=== PATIENT | male | born 1990 | race Caucasian/White ===

== ENCOUNTER 2021-10-20 17:48 | Inpatient (IN) ==
[2021-10-20 18:28] LABS: Appearance Urine Clear (Clear); Bilirubin Urine Negative (Negative); Blood Urine Negative (Negative); Color Urine Yellow; Glucose Urine UA Negative (Negative); Ketones Urine 2+ (Negative); Leukocyte Esterase Urine Negative (Negative); Nitrite Urine Negative (Negative); Protein Urine Negative (Negative); Specific Gravity Urine 1.011 (1.000-1.030); Urobilinogen Urine Negative (Negative); pH Urine 5.5 (4.5-7.5)
[2021-10-20 18:49] LABS: Albumin Globulin Ratio 1.7 (0.9-2); Albumin Level 4.8 gm/dl (3.4-5.0); BUN Creatinine Ratio 9.5 (10-20); Bilirubin,Total 0.7 mg/dl (0.2-1.0); Calcium 10.1 mg/dl (8.5-10.1); Creatinine Clr Calc Pharmacy 156.3 ml/min; Est GFR (African American) 123.1 ml/min; Est GFR (Non-African American) 106.2 ml/min; Globulin 2.8 gm/dl (2.5-4.0); Potassium 3.9 mmol/L (3.5-5.1); Total Protein 7.6 gm/dl (6.0-8.3)
[2021-10-20 18:53] LABS: Acetaminophen < 3 ug/ml (10-30); Salicylate < 3.0 mg/dl (3.0-30)
[2021-10-20] MEDS ORDERED: LORazepam 1 MG TAB PO STA (18:53)
[2021-10-20 18:56] LABS: Amphetamines+Metham, Urine Neg (Neg); Barbiturates, Urine Neg (Neg); Benzodiazepine, Urine Neg (Neg); Cocaine, Urine Neg (Neg); MDMA (Ecstacy), Urine Neg (Neg); Methadone, Urine Neg (Neg); Opiate, Urine Neg (Neg); Phencyclidine, Urine Neg (Neg)
--- NOTE | 2021-10-20 18:59 | Emergency Department Note ---
Impression & Plan Depression with suicidal ideation, Borderline personality disorder ED Provider Note Provider: Arturo Sanchez MD DATE OF SERVICE: 10/20/2021 CHIEF COMPLAINT: Suicidal thoughts, depression HISTORY OF PRESENT ILLNESS: Patient is a 31-year-old gentleman with reported history of borderline personality disorder stating that over the past approximately 5 months he lost his job in his housing and is under significant stress and some worsening mood and depression. States over the last several da ys has had some suicidal thoughts. Reports a history approximate 10 years ago of suicide attempt and prior inpatient psychiatric care. Patient denies Prasad ideation or fights with others and states he is just withdrawing. States he has narcolepsy but is not really sleeping and he has not been eating very much. Patient states that he feels he needs help he believes inpatient treatment is needed. He states that his inner dialogue with positive voice telling him not to harm himself is diminishing. Patient currently does not of psychiatrist but does receive care from his primary doctor's office including multiple medications. Patient with an outpatient therapist that he states has not been going given his depression recently that regularly. Patient states at times he feels a little bit of chest tightness and he feels anxious. REVIEW OF SYSTEMS: A total of 10 review of systems was obtained and negative except as stated above in the HPI. PAST MEDICAL HISTORY: As noted above MEDICATIONS: Reviewed home medications SOCIAL HISTORY: Occasional marijuana, denies other drugs. PHYSICAL EXAM: GENERAL: alert and oriented in no acute distress on stretcher with his friend Head: normocephalic and atraumatic EYES: No injection, discharge or icterus. NECK: Trachea midline. ENT: Mucous membranes pink and moist. LUNGS: Airway patent. No retractions. Breath sounds clear with good air entry bilaterally. HEART: Regular rate and rhythm. No chest wall tenderness SKIN: Acyanotic, warm, dry, without rashes EXTREMITIES: Without swelling, tenderness or deformity NEUROLOGICAL: No focal deficits. No aphasia. No facial droop or slurred speech. Ambulatory. Psych:. Endorses SI without clear plan. Expresses hopelessness. Denies HI or hallucinations. Mildly flattened affect, does avoid some eye contact. EK bpm normal sinus rhythm with sinus arrhythmia. No acute ST segment honey vation or depression. QTc 430. Normal axis. Patient's laboratory studies reviewed. Differential includes Mood disorder, infection, hypoglycemia, electrolyte abnormalities, cardiac sources, intracerebral event, toxicologic, trauma, neurologic, as well as other pathologies. IMPRESSION/MEDICAL DECISION MAKING: Seen with manager rn case. Some chest tightness reported the times. EKG and troponin were sent although lower likelihood primary cardiac event given his age. Likely more related to his mood and anxiety. Denies attempting suicide recently but distant history. Now having some suicidal thoughts. Wishing for voluntary inpatient treatment. Basic labs obtained without severe abnormalities noted. Requesting to medication up with his anxiety and given a dose of oral Ativan. Referrals were made for inpatient psychiatric care. Accepted to [facility] for furthering patient care of his depression and suicidal ideation. DIAGNOSIS: Depression with suicidal ideation, borderline personality disorder DISPOSITION: Past Med/Surg History Social History Smoking Status: Current every day smoker Home Meds Home Medications Medication Instructions Recorded Confirmed armodafinil 250 mg tablet (Nuvigil) 250 mg PO DAILY 10/20/21 10/20/21 chlordiazepoxide HCl 25 mg capsule 25 mg PO DIRECTED PRN 10/20/21 10/20/21 clonidine HCl 0.1 mg tablet 0.1 mg PO BID 10/20/21 10/20/21 lamotrigine 100 mg tablet 100 mg PO BID 10/20/21 10/20/21 (Lamictal) venlafaxine 150 mg 150 mg PO DAILY 10/20/21 10/20/21 capsule,extended release 24 hr (Effexor XR) venlafaxine 75 mg capsule,extended 75 mg PO DAILY 10/20/21 10/20/21 release 24 hr (Effexor XR) zolpidem 10 mg tablet (Ambien) 10 mg PO DAILY 10/20/21 10/20/21 Results & Data (ED) Vital Signs Vital Signs - 24 hr 10/20/21 17:51 10/20/21 21:01 Temperature 36.2 C L Temperature Source Temporal Artery Scan Pulse Rate 106 H Pulse Rate [Left Finger] 90 Respiratory Rate 18 16 Blood Pressure 158/100 H Blood Pressure [Right Arm] 143/98 H Blood Pressure Mean 119 Blood Pressure Mean [Right Arm] 113 Blood Pressure Position Sitting Blood Pressure Position [Right Arm] Lying Pulse Oximetry 96 96 Oxygen Delivery Method Room Air Room Air Sepsis Recent Fever Within 48 Hours No Sepsis New/Unexplained Change in Mental Status No Sepsis Action Taken by Nursing No Action Required Laboratory Data Result diagrams: 10/20/21 19:57 10/20/21 18:21 Lab Results 10/20/21 10/20/21 10/20/21 Range/Units 18:06 18:06 18:21 WBC (4.8-10.8) K/uL RBC (4.7-6.1) M/uL Hgb (14.0-18.0) g/dL Hct (42-52) % MCV (80-100) fL MCH (25-34) pg MCHC (32-36) g/dL RDW Std Deviation (36.4-46.3) fL RDW Coeff of Giana (11.5-14.5) % Plt Count (130-400) K/uL MPV (7.4-10.4) fL Immature Gran % (Auto) % Neut % (Auto) % Lymph % (Auto) % Wetzel % (Auto) % Eos % (Auto) % Baso % (Auto) % Neut # (Auto) (1.4-6.5) K/uL Lymph # (Auto) (1.2-3.4) K/uL Wetzel # (Auto) (0.11-0.59) K/uL Eos # (Auto) (0-0.5) K/uL Baso # (Auto) (0-0.2) K/uL Immature Gran # (Auto) (0.00-0.02) K/uL Sodium 137 (136-145) mmol/L Potassium 3.9 (3.5-5.1) mmol/L Chloride 104 (98-107) mmol/L Carbon Dioxide 24 (21-32) mmol/L Anion Gap 9 (3-11) BUN 9 (6-23) mg/dl Creatinine 0.95 (0.6-1.4) mg/dl Est Cr Clr Drug Dosing 156.3 ml/min Est GFR ( Amer) 123.1 ml/min Est GFR (Non-Af Amer) 106.2 ml/min BUN/Creatinine Ratio 9.5 L (10-20) Glucose 90 (70-99(Fasting)) mg/dl Calcium 10.1 (8.5-10.1) mg/dl Total Bilirubin 0.7 (0.2-1.0) mg/dl AST 22 (13-39) U/L ALT 22 (7-52) U/L Alkaline Phosphatase 90 (34-104) U/L Troponin I (0-0.04) ng/ml Total Protein 7.6 (6.0-8.3) gm/dl Albumin 4.8 (3.4-5.0) gm/dl Globulin 2.8 (2.5-4.0) gm/dl Albumin/Globulin Ratio 1.7 (0.9-2) TSH (0.300-4.500) uIu/ml Urine Color Yellow Urine Appearance Clear (Clear) Urine pH 5.5 (4.5-7.5) Ur Specific Jefferson 1.011 (1.000-1.030) Urine Protein Negative (Negative) Urine Glucose (UA) Negative (Negative) Urine Ketones 2+ H (Negative) Urine Blood Negative (Negative) Urine Nitrite Negative (Negative) Urine Bilirubin Negative (Negative) Urine Urobilinogen Negative (Negative) Ur Leukocyte Esterase Negative (Negative) Salicylates (3.0-30) mg/dl Urine Opiates Screen Neg (Neg) Ur Methadone, Qual Neg (Neg) Acetaminophen (10-30) ug/ml Urine Barbiturates Neg (Neg) Ur Phencyclidine (PCP) Neg (Neg) U Amphetamin/Meth Scrn Neg (Neg) MDMA (Ecstasy) Screen Neg (Neg) U Benzodiazepines Scrn Neg (Neg) Ur Cocaine Metabolite Neg (Neg) U Marijuana (THC) Screen Pos H (Neg) Ethyl Alcohol mg/dL (<10.0) mg/dl SARS-CoV-2, RNA, NAAT (NEGATIVE) 10/20/21 10/20/21 10/20/21 Range/Units 18:21 18:21 18:21 WBC (4.8-10.8) K/uL RBC (4.7-6.1) M/uL Hgb (14.0-18.0) g/dL Hct (42-52) % MCV (80-100) fL MCH (25-34) pg MCHC (32-36) g/dL RDW Std Deviation (36.4-46.3) fL RDW Coeff of Giana (11.5-14.5) % Plt Count (130-400) K/uL MPV (7.4-10.4) fL Immature Gran % (Auto) % Neut % (Auto) % Lymph % (Auto) % Wetzel % (Auto) % Eos % (Auto) % Baso % (Auto) % Neut # (Auto) (1.4-6.5) K/uL Lymph # (Auto) (1.2-3.4) K/uL Wetzel # (Auto) (0.11-0.59) K/uL Eos # (Auto) (0-0.5) K/uL Baso # (Auto) (0-0.2) K/uL Immature Gran # (Auto) (0.00-0.02) K/uL Sodium (136-145) mmol/L Potassium (3.5-5.1) mmol/L Chloride (98-107) mmol/L Carbon Dioxide (21-32) mmol/L Anion Gap (3-11) BUN (6-23) mg/dl Creatinine (0.6-1.4) mg/dl Est Cr Clr Drug Dosing ml/min Est GFR ( Amer) ml/min Est GFR (Non-Af Amer) ml/min BUN/Creatinine Ratio (10-20) Glucose (70-99(Fasting)) mg/dl Calcium (8.5-10.1) mg/dl Total Bilirubin (0.2-1.0) mg/dl AST (13-39) U/L ALT (7-52) U/L Alkaline Phosphatase (34-104) U/L Troponin I (0-0.04) ng/ml Total Protein (6.0-8.3) gm/dl Albumin (3.4-5.0) gm/dl Globulin (2.5-4.0) gm/dl Albumin/Globulin Ratio (0.9-2) TSH 1.550 (0.300-4.500) uIu/ml Urine Color Urine Appearance (Clear) Urine pH (4.5-7.5) Ur Specific Jefferson (1.000-1.030) Urine Protein (Negative) Urine Glucose (UA) (Negative) Urine Ketones (Negative) Urine Blood (Negative) Urine Nitrite (Negative) Urine Bilirubin (Negative) Urine Urobilinogen (Negative) Ur Leukocyte Esterase (Negative) Salicylates < 3.0 L (3.0-30) mg/dl Urine Opiates Screen (Neg) Ur Methadone, Qual (Neg) Acetaminophen < 3 L (10-30) ug/ml Urine Barbiturates (Neg) Ur Phencyclidine (PCP) (Neg) U Amphetamin/Meth Scrn (Neg) MDMA (Ecstasy) Screen (Neg) U Benzodiazepines Scrn (Neg) Ur Cocaine Metabolite (Neg) U Marijuana (THC) Screen (Neg) Ethyl Alcohol mg/dL < 10.0 (<10.0) mg/dl SARS-CoV-2, RNA, NAAT (NEGATIVE) 10/20/21 10/20/21 10/20/21 Range/Units 18:21 19:13 19:57 WBC 5.99 (4.8-10.8) K/uL RBC 5.30 (4.7-6.1) M/uL Hgb 16.7 (14.0-18.0) g/dL Hct 46.9 (42-52) % MCV 88.5 (80-100) fL MCH 31.5 (25-34) pg MCHC 35.6 (32-36) g/dL RDW Std Deviation 42.5 (36.4-46.3) fL RDW Coeff of Giana 13.1 (11.5-14.5) % Plt Count 264 (130-400) K/uL MPV 10.7 H (7.4-10.4) fL Immature Gran % (Auto) 0.0 % Neut % (Auto) 74.3 % Lymph % (Auto) 21.7 % Wetzel % (Auto) 3.5 % Eos % (Auto) 0.2 % Baso % (Auto) 0.3 % Neut # (Auto) 4.45 (1.4-6.5) K/uL Lymph # (Auto) 1.30 (1.2-3.4) K/uL Wetzel # (Auto) 0.21 (0.11-0.59) K/uL Eos # (Auto) 0.01 (0-0.5) K/uL Baso # (Auto) 0.02 (0-0.2) K/uL Immature Gran # (Auto) 0.00 (0.00-0.02) K/uL Sodium (136-145) mmol/L Potassium (3.5-5.1) mmol/L Chloride (98-107) mmol/L Carbon Dioxide (21-32) mmol/L Anion Gap (3-11) BUN (6-23) mg/dl Creatinine (0.6-1.4) mg/dl Est Cr Clr Drug Dosing ml/min Est GFR ( Amer) ml/min Est GFR (Non-Af Amer) ml/min BUN/Creatinine Ratio (10-20) Glucose (70-99(Fasting)) mg/dl Calcium (8.5-10.1) mg/dl Total Bilirubin (0.2-1.0) mg/dl AST (13-39) U/L ALT (7-52) U/L Alkaline Phosphatase (34-104) U/L Troponin I < 0.03 (0-0.04) ng/ml Total Protein (6.0-8.3) gm/dl Albumin (3.4-5.0) gm/dl Globulin (2.5-4.0) gm/dl Albumin/Globulin Ratio (0.9-2) TSH (0.300-4.500) uIu/ml Urine Color Urine Appearance (Clear) Urine pH (4.5-7.5) Ur Specific Jefferson (1.000-1.030) Urine Protein (Negative) Urine Glucose (UA) (Negative) Urine Ketones (Negative) Urine Blood (Negative) Urine Nitrite (Negative) Urine Bilirubin (Negative) Urine Urobilinogen (Negative) Ur Leukocyte Esterase (Negative) Salicylates (3.0-30) mg/dl Urine Opiates Screen (Neg) Ur Methadone, Qual (Neg) Acetaminophen (10-30) ug/ml Urine Barbiturates (Neg) Ur Phencyclidine (PCP) (Neg) U Amphetamin/Meth Scrn (Neg) MDMA (Ecstasy) Screen (Neg) U Benzodiazepines Scrn (Neg) Ur Cocaine Metabolite (Neg) U Marijuana (THC) Screen (Neg) Ethyl Alcohol mg/dL (<10.0) mg/dl SARS-CoV-2, RNA, NAAT NEGATIVE (NEGATIVE) Administered Medications Lamotrigine (Lamotrigine 100 Mg Tab) 100 mg PO BID BROOKE Stop: 11/19/21 20:59 Last Admin: 10/20/21 20:41 Dose: 100 mg Documented by: [id number] Discontinued Medications Lorazepam (Lorazepam 1 Mg Tab) 1 mg PO NOW STA Stop: 10/20/21 18:54 Last Admin: 10/20/21 19:16 Dose: 1 mg Documented by: [id number] Discharge Plan Visit Data Chief Complaint: Mental Health Evaluation Stated Complaint: BODERLINE PERSONALITY DISORDER, SUCIDAL THOUGHTS ED Provider: Arturo Sanchez Discharge Problem: Depression with suicidal ideation, Borderline personality disorder Patient Disposition: Admitted As Inpatient Discharge Instructions Interventions: ED Discharge Assessment Last Done: 10/20/21 22:07
[2021-10-20 20:22] LABS: Basophils # (auto) 0.02 K/uL (0-0.2); Basophils % (auto) 0.3 %; Eosinophils # (auto) 0.01 K/uL (0-0.5); Eosinophils % (auto) 0.2 %; Hematocrit (blood only) 46.9 % (42-52); Hemoglobin 16.7 g/dL (14.0-18.0); Lymphocytes % (auto) 21.7 %; Mean Corpuscular Hemoglobin 31.5 pg (25-34); Mean Corpuscular Hgb Conc 35.6 g/dL (32-36); Mean Corpuscular Volume 88.5 fL (80-100); Mean Platelet Volume 10.7 fL (7.4-10.4); Monocytes # (auto) 0.21 K/uL (0.11-0.59); Monocytes % (auto) 3.5 %; Neutrophils # (auto) 4.45 K/uL (1.4-6.5); Neutrophils % (auto) 74.3 %; Platelet Count 264 K/uL (130-400); RDW Coefficient of Variation 13.1 % (11.5-14.5); RDW Standard Deviation 42.5 fL (36.4-46.3); White Blood Count 5.99 K/uL (4.8-10.8)
[2021-10-20] MEDS: lamoTRIgine 100 MG TAB PO SCH (20:41)
[2021-10-20] MEDS ORDERED: MAGNESIUM HYDROXIDE SUSP 30 ML UDC PO PRN (21:52)
[2021-10-20] MEDS ORDERED: ALUMINUM/MAGNESIUM SUSP 30 ML UDC PO PRN (21:52)
[2021-10-20] MEDS ORDERED: SODIUM CHLORIDE 0.65% NA SOLN 45 ML (OCEAN) PRN (21:52)
[2021-10-20] MEDS ORDERED: hydrOXYzine HCl 25 MG TAB PO PRN ×2 (21:52)
[2021-10-20] MEDS ORDERED: ACETAMINOPHEN 325 MG TAB PO PRN (21:52)
[2021-10-20] MEDS ORDERED: BISMUTH SUBSALICYLATE LIQD 236 ML PO PRN (21:52)
[2021-10-20] MEDS ORDERED: cloNIDine HCL 0.1 MG TAB PO SCH (22:45)
[2021-10-20] MEDS ORDERED: PATIENT'S ALLERGY INFO NEEDS ENTERED SCH (22:45)
[2021-10-20] MEDS ORDERED: PATIENT'S ALLERGY INFO NEEDS ENTERED ONE (22:55)
[2021-10-20] MEDS: ZOLPIDEM TARTRATE 10 MG TAB PO PRN (23:28)
[2021-10-20] MEDS ORDERED: FLUARIX QUADRIVALENT 0.5 ML SYR IM ONE (23:37)
[2021-10-21] MEDS ORDERED: NICOTINE 14 MG/24 HR PATCH TD SCH (09:00)
[2021-10-21] MEDS ORDERED: chlordiazePOXIDE HCl 25 MG CAP PO PRN (09:13)
[2021-10-21] MEDS ORDERED: VENLAFAXINE HCL XR 75 MG CAPXR PO SCH (09:15)
--- NOTE | 2021-10-21 10:05 | History & Physical ---
Date of Service October 21, 2021 Impression / Recommendations Impression The patient is a 31 year old with a history of narcolepsy with cataplexy, BPD, trauma, depression and anxiety who was admitted for worsening symptoms and SI with plan and rehearsal behaviors of hanging himself. Diagnostically consistent with JAIRO, MDD with anxious distress, and possible BPAD II given history of episodes convincing for hypomania. The patient is deemed unstable and requires psychiatric hospitalization for diagnostic clarification, safety and stabilization, medication management and development of further coping skills. Discussed treatment options including medication. He would like to cross-taper from venlafaxine to sertraline. Reviewed side effects including but not limited to risk of SI, GI, LEWIS, sexual side effects, risk of florence. Will remain on lamictal for mood stabilization. Will continue prior to admission clonidine, ambien and armodafinil. (1) Major depressive disorder, recurrent episode, severe with anxious distress: (2) JAIRO (generalized anxiety disorder): (3) Narcolepsy and cataplexy: (4) Bipolar 2 disorder: (5) Borderline personality disorder: 10/21/21: The patient was admitted to the [facility]) on q15 min checks (behavioral with suicide precautions) for safety. The patient will participate in group, recreational, and milieu therapies and will be offered additional individual and family sessions as clinically appropriate. -Cross taper from venlafaxine to sertraline -Continue Lamictal, ambien, clonidine, armodafinil -MDQ and Marquez screen Inventory Assets Strengths: motivated to get job again once feeling better, lots of friends, periods of extended stability in the past, outpatient therapist Needs: additional coping skills, housing, medication adjustment Risk Factors Assessment Acute risk high given SI with rehearsal and intent, major depression, family history of by suicide, homelessness, single. Chronic risk is moderate given multiple non-modifiable risk factors. Most significant modifiable risk is helping provide additional social supports, i.e. housing/temporary senior care information, and treating major depressive episode and anxiety. Male: Yes : Yes Do You Have Access To A Gun?: No Health Problems: Yes Mental Health Diagnoses: Yes Substance Use Disorders: No Previous Attempt: No Family History of Suicide: Yes Previous Psychiatric Hospitalization: Yes Hopelessness: Yes Smoker: Yes Protective Factors Assessment Responsible for Young Children: Yes (has 6 yo daughter) Employed: No (lost job in May/Jun) Stable Relationships: Yes Supportive Family: No Good Rapport with Provider: Yes Psychiatric History Identifying Data ANA CASTANO is a 31-year-old man who is currently homeless, has a history of narcolepsy with cataplexy borderline personality disorder, and was admitted on 10/20/21 21:52 on a 201 voluntary commitment for worsening depression and SI with rehearsal behaviors and plan to hang himself. Chief Complaint "i feel really stuck". History of Present Illness Ana presents with months of worsening depression and intensifying SI in the context of multiple psychosocial stressors including losing his job in June, lose of housing/now staying between friends homes, and loss of primary custody of his daughter in May. Since Saturday he had persistent active SI with intent with thoughts of hanging himself. He states on night he had "a breakdown" with SI and considering hanging himself, had tied a noose and due to heightened emotional state fell asleep, which often occurs due to his cataplexy, and then the next morning sought help from his friend. 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 He feels like he "stays stuck" because his anxiety will worsen and then he develops depression and he either "sinks into it" or "I start doing stupid impulsive stuff". He reports symptoms of depression including hopelessness, helplessness, poor sleep, low self-worth, low self-esteem, low motivation, low energy, indecisiveness, low appetite and severe anxiety including ruminative thoughts, chest tightness and panic attacks every 2-3 days. He continues to have passive SI with thoughts of "I"m ok with dying" but feels much safer now being in the hospital. Has been on Effexor since about 2012 and it was last increased "years ago". Ambien works well for him "most of the time but not when my anxiety is off the charts". Lamictal since 2018 because before narcolepsy diagnosis there had been concern for seizures and then he found it helped with his mood stabilization. He's also prescribed librium for anxiety and he uses it now and then about once every few weeks for severe panic attacks. Psychiatric ROS notable for: no psychosis; hx possible florence with periods of decreased sleep/appetite/hypersexuality/impulsive behavior like stealing things or recently hiding in friend's basement or driving fast, last experienced this around Ayanna time after being evicted and had the "I'm going to have to hustle hard mentality" that lasted about 4 days, longest episode of elevated mood was 4 days and never required hospitalization; no hx eating disorder; no OCD. Past Psychiatric History Current Psychiatric Diagnosis: Borderline Personality Disorder Outpatient Services: outpatient therapy with Natali Stuart at [facility], sees weekly to every other week, hasn't seen her in about one month; family medicine doctor prescribes medications through [facility] Previous Psych Admissions: [place] 2012 for depression Do You Have Access To A Gun?: No History of Previous Suicide Attempt: No Describe Attempts in the Past: None Past Medication Trials: fluoxetine, Wellbutrin, abilify, celexa, lithium ("that was the worst"), mirtazapine (gave him restless legs), seroquel ("awful"), trazodone (restless legs) Past Head Trauma/Neuro History History of Concussion/Seizure: Yes (concussions from high school playing football) Allergies Allergy/AdvReac Type Severity Reaction Status Date / Time No Known Allergies Allergy Unverified 10/20/21 22:57 Home Medications Medication Instructions Recorded Confirmed Type armodafinil 250 mg tablet (Nuvigil) 250 mg PO DAILY 10/20/21 10/20/21 History chlordiazepoxide HCl 25 mg capsule 25 mg PO DIRECTED PRN 10/20/21 10/20/21 History clonidine HCl 0.1 mg tablet 0.1 mg PO BID 10/20/21 10/20/21 History lamotrigine 100 mg tablet 100 mg PO BID 10/20/21 10/20/21 History (Lamictal) venlafaxine 150 mg 150 mg PO DAILY 10/20/21 10/20/21 History capsule,extended release 24 hr (Effexor XR) venlafaxine 75 mg capsule,extended 75 mg PO DAILY 10/20/21 10/20/21 History release 24 hr (Effexor XR) zolpidem 10 mg tablet (Ambien) 10 mg PO DAILY 10/20/21 10/20/21 History Family History Family History of: Depression (mom ), Alcoholism/Drug Abuse (mom and dad), Other-List under Comment (maternal GM hx histrionic PD) and Suicide Completion (maternal aunt ) Alcohol History Hx of Alcohol Use Over the Past 12 Months: No AUDIT Total Score: 0 Less than once per month Smoking Use Have You Smoked or Used Tobacco Products in the Last 30 Days: Yes tobacco type: cigarettes and e-cigarettes Smoking Status: Heavy tobacco smoker Smoking packs per day: 1 Substance History Hx of Prescription Med Misuse Over the Past 12 Months: No Hx of Over the Counter Med Misuse Over the Past 12 Months: No Hx of Inhalent Misuse Over the Past 12 Months: No Hx of Organic Substance Use Over the Past 12 Months: Yes ("little pot here and there") Hx of Illegal Substances/Street Drug Use Over Past 12 Months: No Problems as a Result of Past Substance Use: None Identified used marijuana in the past, recently has been using marijuana a lot more due to anxiety and internal dialogue to "shut up" Personal History Living Arrangements: Homeless ("couch surfing", ) Childhood: Grew up in [place]. Father a few years ago. His mother lives in [place] and so does his brother. He doesn't communicate with them with the exception of maybe once per year. Highest Grade Completed: Some College Employment Status: Unemployed (had been doing construction prior to that, had a job interview scheduled but couldn't get up to go to the interview ) Marital Status: Number Of Children: daughter 6; currently can see and talk to her intermittently Beliefs That Will Affect Care: None Current Legal Problems: No Hx Legal Problems: Yes (2013 two misdemenour theft charges; incarcerated for 3 months ) Hx Traumatic Life Events: Yes Patient History Medical History (Updated 10/21/21 @ 13:01 by Nataly Jacobo MD) HTN (hypertension) Narcolepsy and cataplexy Social History Smoking Status: Heavy tobacco smoker Preferred Language: Welsh Communication Ability: Effective Final Coat Sprayer Required: No Beliefs That Will Affect Care: None Feels Safe at Home: Hesitant to Answer Assistive Devices: Contacts and Glasses Review of Systems Review of Systems: All systems reviewed & are unremarkable except as noted in HPI & below (anxiety due to some chest tightness, unchanged from ED or past few days, he attributes it to anxiety ) Physical Exam Psychiatric: Orientation: alert and oriented x 3 Apperance: appropriately dressed and appropriately groomed Eye Contact: good eye contact Motor Behavior: no abnormal motor movements Speech: normal rate/rhythm/volume of speech Affect: + depressed affect and + anxious affect Mood: + depressed mood and + anxious mood Thought Process: goal directed thought process Thought Content: reality based without delusions Suicidal Thoughts: denies suicidal plan and denies suicidal intent; + reports suicidal thoughts (intermittent passive thoughts ) Homicidal Thoughts: denies homicidal thoughts Hallucinations: no auditory hallucinations and no visual hallucinations Cognition: recent memory grossly intact, remote memory grossly intact, attention grossly intact and language grossly intact Estimated Intelligence: consistent with education level Insight: + fair insight Judgement: + fair judgement Vital Signs (Past 24 Hours): Last Vital Signs Temp 36.4 C L 10/21/21 06:00 Pulse 83 10/21/21 06:27 Resp 18 10/21/21 06:00 BP 113/78 10/21/21 06:27 Pulse Ox 96 10/20/21 21:01 Exam Statement: A physical exam was performed in the ED by Dr. Sanchez for the purposes of medical clearance. I accept that physical as correct and adequate for the purposes of the inpatient physical exam. Results & Data ([facility]) Laboratory Results Laboratory Results - last 24 hr 10/20/21 10/20/21 10/20/21 18:06 18:06 18:06 WBC RBC Hgb Hct MCV MCH MCHC RDW Std Deviation RDW Coeff of Giana Plt Count MPV Immature Gran % (Auto) Neut % (Auto) Lymph % (Auto) Caldwell % (Auto) Eos % (Auto) Baso % (Auto) Neut # (Auto) Lymph # (Auto) Caldwell # (Auto) Eos # (Auto) Baso # (Auto) Immature Gran # (Auto) Sodium Potassium Chloride Carbon Dioxide Anion Gap BUN Creatinine Est Cr Clr Drug Dosing Est GFR ( Amer) Est GFR (Non-Af Amer) BUN/Creatinine Ratio Glucose Calcium Total Bilirubin AST ALT Alkaline Phosphatase Troponin I Total Protein Albumin Globulin Albumin/Globulin Ratio TSH Urine Color Yellow Urine Appearance Clear Urine pH 5.5 Ur Specific [place] 1.011 Urine Protein Negative Urine Glucose (UA) Negative Urine Ketones 2+ H Urine Blood Negative Urine Nitrite Negative Urine Bilirubin Negative Urine Urobilinogen Negative Ur Leukocyte Esterase Negative Salicylates Urine Opiates Screen Neg Ur Methadone, Qual Neg Acetaminophen Urine Barbiturates Neg Ur Phencyclidine (PCP) Neg U Amphetamin/Meth Scrn Neg MDMA (Ecstasy) Screen Neg U Benzodiazepines Scrn Neg Ur Cocaine Metabolite Neg U Marijuana (THC) Screen Pos H U Marijuana THC Carboxy Pending Drug Screen Comment Pending Ethyl Alcohol mg/dL SARS-CoV-2, RNA, NAAT 10/20/21 10/20/21 10/20/21 18:21 18:21 18:21 WBC RBC Hgb Hct MCV MCH MCHC RDW Std Deviation RDW Coeff of Giana Plt Count MPV Immature Gran % (Auto) Neut % (Auto) Lymph % (Auto) Caldwell % (Auto) Eos % (Auto) Baso % (Auto) Neut # (Auto) Lymph # (Auto) Caldwell # (Auto) Eos # (Auto) Baso # (Auto) Immature Gran # (Auto) Sodium 137 Potassium 3.9 Chloride 104 Carbon Dioxide 24 Anion Gap 9 BUN 9 Creatinine 0.95 Est Cr Clr Drug Dosing 156.3 Est GFR ( Amer) 123.1 Est GFR (Non-Af Amer) 106.2 BUN/Creatinine Ratio 9.5 L Glucose 90 Calcium 10.1 Total Bilirubin 0.7 AST 22 ALT 22 Alkaline Phosphatase 90 Troponin I Total Protein 7.6 Albumin 4.8 Globulin 2.8 Albumin/Globulin Ratio 1.7 TSH 1.550 Urine Color Urine Appearance Urine pH Ur Specific [place] Urine Protein Urine Glucose (UA) Urine Ketones Urine Blood Urine Nitrite Urine Bilirubin Urine Urobilinogen Ur Leukocyte Esterase Salicylates < 3.0 L Urine Opiates Screen Ur Methadone, Qual Acetaminophen < 3 L Urine Barbiturates Ur Phencyclidine (PCP) U Amphetamin/Meth Scrn MDMA (Ecstasy) Screen U Benzodiazepines Scrn Ur Cocaine Metabolite U Marijuana (THC) Screen U Marijuana THC Carboxy Drug Screen Comment Ethyl Alcohol mg/dL SARS-CoV-2, RNA, NAAT 10/20/21 10/20/21 10/20/21 18:21 18:21 19:13 WBC RBC Hgb Hct MCV MCH MCHC RDW Std Deviation RDW Coeff of Giana Plt Count MPV Immature Gran % (Auto) Neut % (Auto) Lymph % (Auto) Caldwell % (Auto) Eos % (Auto) Baso % (Auto) Neut # (Auto) Lymph # (Auto) Caldwell # (Auto) Eos # (Auto) Baso # (Auto) Immature Gran # (Auto) Sodium Potassium Chloride Carbon Dioxide Anion Gap BUN Creatinine Est Cr Clr Drug Dosing Est GFR ( Amer) Est GFR (Non-Af Amer) BUN/Creatinine Ratio Glucose Calcium Total Bilirubin AST ALT Alkaline Phosphatase Troponin I < 0.03 Total Protein Albumin Globulin Albumin/Globulin Ratio TSH Urine Color Urine Appearance Urine pH Ur Specific [place] Urine Protein Urine Glucose (UA) Urine Ketones Urine Blood Urine Nitrite Urine Bilirubin Urine Urobilinogen Ur Leukocyte Esterase Salicylates Urine Opiates Screen Ur Methadone, Qual Acetaminophen Urine Barbiturates Ur Phencyclidine (PCP) U Amphetamin/Meth Scrn MDMA (Ecstasy) Screen U Benzodiazepines Scrn Ur Cocaine Metabolite U Marijuana (THC) Screen U Marijuana THC Carboxy Drug Screen Comment Ethyl Alcohol mg/dL < 10.0 SARS-CoV-2, RNA, NAAT NEGATIVE 10/20/21 19:57 WBC 5.99 RBC 5.30 Hgb 16.7 Hct 46.9 MCV 88.5 MCH 31.5 MCHC 35.6 RDW Std Deviation 42.5 RDW Coeff of Giana 13.1 Plt Count 264 MPV 10.7 H Immature Gran % (Auto) 0.0 Neut % (Auto) 74.3 Lymph % (Auto) 21.7 Caldwell % (Auto) 3.5 Eos % (Auto) 0.2 Baso % (Auto) 0.3 Neut # (Auto) 4.45 Lymph # (Auto) 1.30 Caldwell # (Auto) 0.21 Eos # (Auto) 0.01 Baso # (Auto) 0.02 Immature Gran # (Auto) 0.00 Sodium Potassium Chloride Carbon Dioxide Anion Gap BUN Creatinine Est Cr Clr Drug Dosing Est GFR ( Amer) Est GFR (Non-Af Amer) BUN/Creatinine Ratio Glucose Calcium Total Bilirubin AST ALT Alkaline Phosphatase Troponin I Total Protein Albumin Globulin Albumin/Globulin Ratio TSH Urine Color Urine Appearance Urine pH Ur Specific [place] Urine Protein Urine Glucose (UA) Urine Ketones Urine Blood Urine Nitrite Urine Bilirubin Urine Urobilinogen Ur Leukocyte Esterase Salicylates Urine Opiates Screen Ur Methadone, Qual Acetaminophen Urine Barbiturates Ur Phencyclidine (PCP) U Amphetamin/Meth Scrn MDMA (Ecstasy) Screen U Benzodiazepines Scrn Ur Cocaine Metabolite U Marijuana (THC) Screen U Marijuana THC Carboxy Drug Screen Comment Ethyl Alcohol mg/dL SARS-CoV-2, RNA, NAAT Diagnostic Findings reviewed EKG Current Inpatient Medications Current Inpatient Medications: Current Inpatient Medications Acetaminophen (Acetaminophen 325 Mg Tab) 650 mg PO Q4H PRN PRN Reason: Headache or Minor Fever Stop: 11/19/21 21:51 Al Hydrox/Mg Hydrox/Simethicone (Aluminum/Magnesium Susp 30 Ml Udc) 30 ml PO Q4H PRN PRN Reason: GI Upset Stop: 11/19/21 21:51 Bismuth Subsalicylate (Bismuth Subsalicylate Liqd 236 Ml) 15 ml PO PRN PRN PRN Reason: Loose Stool Stop: 11/19/21 21:51 Chlordiazepoxide HCl (Chlordiazepoxide Hcl 25 Mg Cap) 25 mg PO DAILY PRN PRN Reason: Anxiety Stop: 11/20/21 09:16 Clonidine HCl (Clonidine Hcl 0.1 Mg Tab) 0.1 mg PO BID BROOKE Stop: 11/20/21 20:59 Hydroxyzine HCl (Hydroxyzine Hcl 25 Mg Tab) 50 mg PO HSZ PRN PRN Reason: Insomnia Stop: 11/19/21 21:51 Hydroxyzine HCl (Hydroxyzine Hcl 25 Mg Tab) 25 mg PO Q4H PRN PRN Reason: Anxiety Stop: 11/19/21 21:51 Lamotrigine (Lamotrigine 100 Mg Tab) 100 mg PO BID BROOKE Stop: 11/19/21 20:59 Last Admin: 10/20/21 20:41 Dose: 100 mg Documented by: Magnesium Hydroxide (Magnesium Hydroxide Susp 30 Ml Udc) 30 ml PO DAILY PRN PRN Reason: Constipation Stop: 11/19/21 21:51 Miscellaneous (Remove Nicoderm Patch) 1 ea N/A DAILY@0859 [facility] Stop: 11/20/21 08:58 Nicotine (Nicotine 14 Mg/24 Hr Patch) 14 mg TD QAM BROOKE Stop: 11/20/21 08:59 Nicotine Polacrilex (Nicotine Polacrilex 2 Mg Gum) 1 piece MT PRN PRN PRN Reason: Nicotine craving Stop: 11/19/21 22:38 Armodafinil - (Patient's Own Med) 1 ea PO DAILY BROOKE Stop: 11/20/21 08:59 Sodium Chloride (Sodium Chloride 0.65% Na Soln 45 Ml ([place])) 1 - 2 sprays NA PRN PRN PRN Reason: Nasal Dryness/Congestion Stop: 11/19/21 21:51 Venlafaxine HCl (Venlafaxine Hcl Xr 75 Mg Capxr) 75 mg PO DAILY BROOKE Stop: 11/20/21 09:14 Venlafaxine HCl (Venlafaxine Hcl Xr 150 Mg Capxr) 150 mg PO DAILY BROOKE Stop: 11/20/21 09:14 Zolpidem Tartrate (Zolpidem Tartrate 10 Mg Tab) 10 mg PO HS PRN PRN Reason: Sleep Stop: 11/19/21 22:33 Last Admin: 10/20/21 23:28 Dose: 10 mg Documented by:
[2021-10-21] MEDS: lamoTRIgine 100 MG TAB PO SCH ×2 (11:42→21:50)
[2021-10-21] MEDS: VENLAFAXINE HCL XR 150 MG CAPXR PO SCH (11:43)
[2021-10-21] MEDS: ARMODAFINIL PO SCH (11:55)
[2021-10-21] MEDS: cloNIDine HCL 0.1 MG TAB PO SCH ×2 (11:56→21:49)
[2021-10-21] MEDS: NICOTINE POLACRILEX 2 MG GUM MT PRN ×5 (13:36→21:50)
[2021-10-21] MEDS: chlordiazePOXIDE HCl 25 MG CAP PO PRN (17:44)
[2021-10-21] MEDS: ZOLPIDEM TARTRATE 10 MG TAB PO PRN (21:50)
--- NOTE | 2021-10-22 06:17 | Electrocardiogram Report ---
Test Reason : Blood Pressure : / mmHG Vent. Rate : 084 BPM Atrial Rate : 084 BPM P-R Int : 128 ms QRS Dur : 096 ms QT Int : 364 ms P-R-T Axes : 045 010 032 degrees QTc Int : 430 ms Poor data quality, interpretation may be adversely affected Normal sinus rhythm with sinus arrhythmia Normal ECG No previous ECGs available Confirmed by Dell Ortega ([id number]) on 10/22/2021 6:16:18 AM Referred By: REFERRED SELF Confirmed By:Dell Ortega
[2021-10-22] MEDS: NICOTINE 21 MG/24 HR TDSY TD SCH (08:15)
[2021-10-22] MEDS: cloNIDine HCL 0.1 MG TAB PO SCH ×2 (08:17→21:08)
[2021-10-22] MEDS: lamoTRIgine 100 MG TAB PO SCH ×2 (08:18→21:08)
[2021-10-22] MEDS: ARMODAFINIL PO SCH (08:18)
[2021-10-22] MEDS: SERTRALINE HCL 50 MG TABLET PO SCH (08:19)
[2021-10-22] MEDS: VENLAFAXINE HCL XR 150 MG CAPXR PO SCH (08:21)
[2021-10-22] MEDS: NICOTINE POLACRILEX 2 MG GUM MT PRN ×8 (08:53→21:53)
--- NOTE | 2021-10-22 09:06 | Psychiatric Progress Note ---
Date of Service October 22, 2021 Impression / Recommendations Impression The patient is a 31 year old with a history of narcolepsy with cataplexy, BPD, trauma, depression and anxiety who was admitted for worsening symptoms and SI with plan and rehearsal behaviors of hanging himself. Diagnostically consistent with JAIRO, MDD with anxious distress, and possible BPAD II given history of episodes convincing for hypomania. The patient is deemed unstable and requires psychiatric hospitalization for diagnostic clarification, safety and stabilization, medication management and development of further coping skills. 10/22/21: Poor sleep but tolerating cross-taper of Effexor to sertraline. Will keep at current dosages for one more day before continuing cross-taper to minimize risk of withdrawal due to extended time period on venlafaxine. Unclear if mood lability represents his use of humor as coping strategy versus potential contribution of malingering/secondary gain versus improvement in mood due to not having to worry about housing/food while in the hospital which understandably reduces his stress level and allows him to meet his basic needs. (1) Major depressive disorder, recurrent episode, severe with anxious distress: (2) JAIRO (generalized anxiety disorder): (3) Narcolepsy and cataplexy: (4) Bipolar 2 disorder: (5) Borderline personality disorder: 10/22/21: Continue medications. Completing screening tools. Attempt to gather further collateral from his primary care provider and therapist tomorrow. 10/21/21: The patient was admitted to the [facility] ([facility]) on q15 min checks (behavioral with suicide precautions) for safety. The patient will participate in group, recreational, and milieu therapies and will be offered additional individual and family sessions as clinically appropriate. -Cross taper from venlafaxine to sertraline -Continue Lamictal, ambien, clonidine, armodafinil -MDQ and [place] screen Inventory Assets Strengths: motivated to get job again once feeling better, lots of friends, periods of extended stability in the past, outpatient therapist Needs: additional coping skills, housing, medication adjustment Risk Factors Assessment Male: Yes : Yes Do You Have Access To A Gun?: No Health Problems: Yes Mental Health Diagnoses: Yes Substance Use Disorders: No Previous Attempt: No Family History of Suicide: Yes Previous Psychiatric Hospitalization: Yes Hopelessness: Yes Smoker: Yes Protective Factors Assessment Responsible for Young Children: Yes (has 6 yo daughter) Employed: No (lost job in May/Jun) Stable Relationships: Yes Supportive Family: No Good Rapport with Provider: Yes Interval History Identifying Information ANA CASTANO is a 31-year-old man who is currently homeless, has a history of narcolepsy with cataplexy borderline personality disorder, and was admitted on 10/20/21 21:52 on a 201 voluntary commitment for worsening depression and SI with rehearsal behaviors and plan to hang himself. Chief Complaint "I'm ok". Review of Systems Sleep Information Total Hours of Sleep: 3.25 Meal Information Percent Meal Consumed - Breakfast: 0 Percent Meal Consumed - Lunch: 50 Percent Meal Consumed - Dinner: 50 Nutrition Comment: pt. allowed to sleep; meal dated, labeled and refrigerated Subjective Subjective Patient was seen & assessed and interval progress reviewed with treatment team nursing and social work. Very anxious yesterday. Poor sleep. Engaging with peers today, watching TV and attending groups. Tolerating cross-taper no symptoms of withdraw from Effexor nor any side effects from sertraline. States he is having "more darker thoughts" which he elaborates as denial of SI but some intrusive self-harm thoughts to drop a chair on his foot but he denies any intent to act on these urges. Feels he can talk with staff if urges intensify or if he feels unable to remain safe. Provided with mood disorder questionnaire and [place] BPD screen to complete. Physical Exam Psychiatric Orientation: alert and oriented x 3 Apperance: appropriately dressed and appropriately groomed Eye Contact: good eye contact Motor Behavior: no abnormal motor movements Speech: normal rate/rhythm/volume of speech Affect: + labile affect (joking and laughing at times, other times appears very anxious) Mood: + depressed mood and + anxious mood Thought Process: goal directed thought process Thought Content: reality based without delusions Suicidal Thoughts: denies suicidal thoughts, denies suicidal plan and denies suicidal intent Homicidal Thoughts: denies homicidal thoughts Hallucinations: no auditory hallucinations and no visual hallucinations Cognition: recent memory grossly intact, remote memory grossly intact, attention grossly intact and language grossly intact Estimated Intelligence: consistent with education level Insight: + fair insight Judgement: + fair judgement Vital Signs (Past 24 Hours) Last Vital Signs Temp 36.3 C L 10/22/21 06:41 Pulse 101 H 10/22/21 06:42 Resp 16 10/22/21 06:41 BP 100/69 10/22/21 06:42 Pulse Ox 96 10/20/21 21:01 Results & Data ([facility]) Current Inpatient Medications Current Inpatient Medications: Current Inpatient Medications Acetaminophen (Acetaminophen 325 Mg Tab) 650 mg PO Q4H PRN PRN Reason: Headache or Minor Fever Stop: 11/19/21 21:51 Al Hydrox/Mg Hydrox/Simethicone (Aluminum/Magnesium Susp 30 Ml Udc) 30 ml PO Q4H PRN PRN Reason: GI Upset Stop: 11/19/21 21:51 Bismuth Subsalicylate (Bismuth Subsalicylate Liqd 236 Ml) 15 ml PO PRN PRN PRN Reason: Loose Stool Stop: 11/19/21 21:51 Chlordiazepoxide HCl (Chlordiazepoxide Hcl 25 Mg Cap) 25 mg PO DAILY PRN PRN Reason: Anxiety Stop: 11/20/21 09:16 Last Admin: 10/21/21 17:44 Dose: 25 mg Documented by: Clonidine HCl (Clonidine Hcl 0.1 Mg Tab) 0.1 mg PO BID [facility] Stop: 11/20/21 20:59 Last Admin: 10/22/21 08:17 Dose: 0.1 mg Documented by: Hydroxyzine HCl (Hydroxyzine Hcl 25 Mg Tab) 50 mg PO HSZ PRN PRN Reason: Insomnia Stop: 11/19/21 21:51 Last Admin: 10/22/21 00:08 Dose: 50 mg Documented by: Hydroxyzine HCl (Hydroxyzine Hcl 25 Mg Tab) 25 mg PO Q4H PRN PRN Reason: Anxiety Stop: 11/19/21 21:51 Lamotrigine (Lamotrigine 100 Mg Tab) 100 mg PO BID [facility] Stop: 11/19/21 20:59 Last Admin: 10/22/21 08:18 Dose: 100 mg Documented by: Magnesium Hydroxide (Magnesium Hydroxide Susp 30 Ml Udc) 30 ml PO DAILY PRN PRN Reason: Constipation Stop: 11/19/21 21:51 Miscellaneous (Remove Nicoderm Patch) 1 ea N/A DAILY@0859 [facility] Stop: 11/21/21 08:58 Last Admin: 10/22/21 08:17 Dose: Not Given Documented by: Nicotine (Nicotine 21 Mg/24 Hr Tdsy) 21 mg TD QAM [place] Stop: 11/21/21 08:59 Last Admin: 10/22/21 08:15 Dose: 21 mg Documented by: Nicotine Polacrilex (Nicotine Polacrilex 2 Mg Gum) 1 piece MT PRN PRN PRN Reason: Nicotine craving Stop: 11/19/21 22:38 Last Admin: 10/22/21 08:53 Dose: 1 piece Documented by: Armodafinil - (Patient's Own Med) 1 ea PO DAILY [facility] Stop: 11/20/21 08:59 Last Admin: 10/22/21 08:18 Dose: 1 ea Documented by: Sertraline HCl (Sertraline Hcl 50 Mg Tablet) 25 mg PO QAM [place] Stop: 11/21/21 08:59 Last Admin: 10/22/21 08:19 Dose: 25 mg Documented by: Sodium Chloride (Sodium Chloride 0.65% Na Soln 45 Ml ([place])) 1 - 2 sprays NA PRN PRN PRN Reason: Nasal Dryness/Congestion Stop: 11/19/21 21:51 Venlafaxine HCl (Venlafaxine Hcl Xr 150 Mg Capxr) 150 mg PO DAILY [place] Stop: 11/20/21 09:14 Last Admin: 10/22/21 08:21 Dose: 150 mg Documented by: Zolpidem Tartrate (Zolpidem Tartrate 10 Mg Tab) 10 mg PO HS PRN PRN Reason: Sleep Stop: 11/19/21 22:33 Last Admin: 10/21/21 21:50 Dose: 10 mg Documented by: Mental Health & Subst Abuse Tx Therapist Name of Therapist: Mike Barton Therapist's Therapy Appointment Comment: [address] [place] [address] Outside Installer Apprentice Name of Outside Installer Apprentice: None Post Discharge Appointments Primary Care Physician Name Of Family Doctor: [facility] Primary Care Provider Appointment Comment: [phone] [place] [address] Contact Information Discharge Discharge Address: [address] [place] [address] [place] [address]
[2021-10-22] MEDS: ZOLPIDEM TARTRATE 10 MG TAB PO PRN (21:08)
[2021-10-22] MEDS: chlordiazePOXIDE HCl 25 MG CAP PO PRN (23:10)
[2021-10-23 05:06] LABS: Marijuana Quant, GCMS Urine 1591 ng/mL (<5)
[2021-10-23] MEDS: cloNIDine HCL 0.1 MG TAB PO SCH ×2 (08:47→20:34)
[2021-10-23] MEDS: SERTRALINE HCL 50 MG TABLET PO SCH (08:48)
[2021-10-23] MEDS: NICOTINE 21 MG/24 HR TDSY TD SCH (08:48)
[2021-10-23] MEDS: lamoTRIgine 100 MG TAB PO SCH ×2 (08:48→20:34)
[2021-10-23] MEDS: VENLAFAXINE HCL XR 150 MG CAPXR PO SCH (08:49)
[2021-10-23] MEDS: NICOTINE POLACRILEX 2 MG GUM MT PRN ×3 (08:50→21:50)
[2021-10-23] MEDS: ARMODAFINIL PO SCH (08:58)
[2021-10-23] MEDS: chlordiazePOXIDE HCl 25 MG CAP PO PRN (13:00)
--- NOTE | 2021-10-23 16:45 | Psychiatric Progress Note ---
Date of Service October 23, 2021 Impression / Recommendations Impression The patient is a 31 year old with a history of narcolepsy with cataplexy, BPD, trauma, depression and anxiety who was admitted for worsening symptoms and SI with plan and rehearsal behaviors of hanging himself. Diagnostically consistent with JAIRO, MDD with anxious distress, and possible BPAD II given history of episodes convincing for hypomania. The patient is deemed unstable and requires psychiatric hospitalization for diagnostic clarification, safety and stabilization, medication management and development of further coping skills. 10/23/21: Increased SI and mood lability in context of reviewing length of stay and discussing past trauma. Tolerating cross-taper will continue with this to target depression, anxiety and PTSD symptoms. (1) Major depressive disorder, recurrent episode, severe with anxious distress: (2) JAIRO (generalized anxiety disorder): (3) Narcolepsy and cataplexy: (4) Bipolar 2 disorder: (5) Borderline personality disorder: 10/23/21: Increase sertraline to 50mg qd, decrease venlafaxine ER to 75mg. 10/22/21: Continue medications. Completing screening tools. Attempt to gather further collateral from his primary care provider and therapist tomorrow. 10/21/21: The patient was admitted to the [facility] ([facility]) on q15 min checks (behavioral with suicide precautions) for safety. The patient will participate in group, recreational, and milieu therapies and will be offered additional individual and family sessions as clinically appropriate. -Cross taper from venlafaxine to sertraline -Continue Lamictal, ambien, clonidine, armodafinil -MDQ and [place] screen Inventory Assets Strengths: motivated to get job again once feeling better, lots of friends, periods of extended stability in the past, outpatient therapist Needs: additional coping skills, housing, medication adjustment Risk Factors Assessment Male: Yes : Yes Do You Have Access To A Gun?: No Health Problems: Yes Mental Health Diagnoses: Yes Substance Use Disorders: No Previous Attempt: No Family History of Suicide: Yes Previous Psychiatric Hospitalization: Yes Hopelessness: Yes Smoker: Yes Protective Factors Assessment Responsible for Young Children: Yes (has 6 yo daughter) Employed: No (lost job in May/Jun) Stable Relationships: Yes Supportive Family: No Good Rapport with Provider: Yes Interval History Identifying Information ANA CASTANO is a 31-year-old man who is currently homeless, has a history of narcolepsy with cataplexy borderline personality disorder, and was admitted on 10/20/21 21:52 on a 201 voluntary commitment for worsening depression and SI with rehearsal behaviors and plan to hang himself. Chief Complaint "I just don't know if I'll ever get better". Review of Systems Sleep Information Total Hours of Sleep: 6.25 Meal Information Percent Meal Consumed - Breakfast: 50 Percent Meal Consumed - Lunch: 0 Percent Meal Consumed - Dinner: 100 Nutrition Comment: pt. allowed to sleep; meal dated, labeled and refrigerated Subjective Subjective Patient was seen & assessed and interval progress reviewed with treatment team nursing and social work. Ana had been demonstrating significantly brightened mood, laughing with peers and engaging in groups however after reviewing his treatment team plan this afternoon he became isolative to his room and tearful. On my assessment he was tearful describes intrusive memories and flashbacks from past trauma which he had been discussing earlier with one of the [facility] counselors. Reviewed plan for ongoing medication titration which he is agreeable to. Denies any side effects from venlafaxine taper. Tolerating sertraline. Stated he is having thoughts of SI and thoughts of using a screw from the bathroom to scratch his neck. Discussed option to use the quiet room as a safe space should these thoughts of self-harm intensify or should he feel unable to remain safe. He agrees to tell nursing should he feel unable to remain safe. Physical Exam Psychiatric Orientation: alert and oriented x 3 Apperance: appropriately dressed and appropriately groomed Eye Contact: good eye contact Motor Behavior: no abnormal motor movements Speech: normal rate/rhythm/volume of speech Affect: + depressed affect, + anxious affect, + tearful affect and + labile affect (joking and laughing at times, other times appears very anxious) Mood: + depressed mood and + anxious mood Thought Process: goal directed thought process Thought Content: reality based without delusions Suicidal Thoughts: denies suicidal plan and denies suicidal intent (feels safe on the unit, agrees to alert nursing should he feel unsafe ); + reports suicidal thoughts Homicidal Thoughts: denies homicidal thoughts Hallucinations: no auditory hallucinations and no visual hallucinations Cognition: recent memory grossly intact, remote memory grossly intact, attention grossly intact and language grossly intact Estimated Intelligence: consistent with education level Insight: + fair insight Judgement: + limited judgement Vital Signs (Past 24 Hours) Last Vital Signs Temp 36.3 C L 10/23/21 06:37 Pulse 89 10/23/21 06:38 Resp 16 10/23/21 06:37 BP 128/89 10/23/21 06:38 Pulse Ox 96 10/20/21 21:01 Results & Data ([facility]) Laboratory Results Laboratory Results - last 24 hr 10/20/21 18:06 U Marijuana THC Carboxy 1591 H Drug Screen Comment SEE NOTE Current Inpatient Medications Current Inpatient Medications: Current Inpatient Medications Acetaminophen (Acetaminophen 325 Mg Tab) 650 mg PO Q4H PRN PRN Reason: Headache or Minor Fever Stop: 11/19/21 21:51 Al Hydrox/Mg Hydrox/Simethicone (Aluminum/Magnesium Susp 30 Ml Udc) 30 ml PO Q4H PRN PRN Reason: GI Upset Stop: 11/19/21 21:51 Bismuth Subsalicylate (Bismuth Subsalicylate Liqd 236 Ml) 15 ml PO PRN PRN PRN Reason: Loose Stool Stop: 11/19/21 21:51 Chlordiazepoxide HCl (Chlordiazepoxide Hcl 25 Mg Cap) 25 mg PO DAILY PRN PRN Reason: Anxiety Stop: 11/20/21 09:16 Last Admin: 10/23/21 13:00 Dose: 25 mg Documented by: Clonidine HCl (Clonidine Hcl 0.1 Mg Tab) 0.1 mg PO BID [facility] Stop: 11/20/21 20:59 Last Admin: 10/23/21 08:47 Dose: 0.1 mg Documented by: Hydroxyzine HCl (Hydroxyzine Hcl 25 Mg Tab) 50 mg PO HSZ PRN PRN Reason: Insomnia Stop: 11/19/21 21:51 Last Admin: 10/22/21 00:08 Dose: 50 mg Documented by: Hydroxyzine HCl (Hydroxyzine Hcl 25 Mg Tab) 25 mg PO Q4H PRN PRN Reason: Anxiety Stop: 11/19/21 21:51 Lamotrigine (Lamotrigine 100 Mg Tab) 100 mg PO BID [facility] Stop: 11/19/21 20:59 Last Admin: 10/23/21 08:48 Dose: 100 mg Documented by: Magnesium Hydroxide (Magnesium Hydroxide Susp 30 Ml Udc) 30 ml PO DAILY PRN PRN Reason: Constipation Stop: 11/19/21 21:51 Miscellaneous (Remove Nicoderm Patch) 1 ea N/A DAILY@0859 [facility] Stop: 11/21/21 08:58 Last Admin: 10/23/21 08:47 Dose: 1 ea Documented by: Nicotine (Nicotine 21 Mg/24 Hr Tdsy) 21 mg TD QAM [place] Stop: 11/21/21 08:59 Last Admin: 10/23/21 08:48 Dose: 21 mg Documented by: Nicotine Polacrilex (Nicotine Polacrilex 2 Mg Gum) 1 piece MT PRN PRN PRN Reason: Nicotine craving Stop: 11/19/21 22:38 Last Admin: 10/23/21 08:50 Dose: 1 piece Documented by: Armodafinil - (Patient's Own Med) 1 ea PO DAILY [facility] Stop: 11/20/21 08:59 Last Admin: 10/23/21 08:58 Dose: 1 ea Documented by: Sertraline HCl (Sertraline Hcl 50 Mg Tablet) 25 mg PO QAM [place] Stop: 11/21/21 08:59 Last Admin: 10/23/21 08:48 Dose: 25 mg Documented by: Sodium Chloride (Sodium Chloride 0.65% Na Soln 45 Ml ([place])) 1 - 2 sprays NA PRN PRN PRN Reason: Nasal Dryness/Congestion Stop: 11/19/21 21:51 Venlafaxine HCl (Venlafaxine Hcl Xr 150 Mg Capxr) 150 mg PO DAILY [facility] Stop: 11/20/21 09:14 Last Admin: 10/23/21 08:49 Dose: 150 mg Documented by: Zolpidem Tartrate (Zolpidem Tartrate 10 Mg Tab) 10 mg PO HS PRN PRN Reason: Sleep Stop: 11/19/21 22:33 Last Admin: 10/22/21 21:08 Dose: 10 mg Documented by: Mental Health & Subst Abuse Tx Psychiatrist Name of Psychiatrist: None- uses PCP for meds Therapist Name of Therapist: Mike Barton Therapist's Date of Therapist Appointment: 11/07/21 Time of Therapist Appointment: 11am Therapy Appointment Comment: [address] [place], [place] [address] Air Brake Tester Name of Air Brake Tester: None Post Discharge Appointments Primary Care Physician Name Of Family Doctor: [facility]- Dr. Kohli [facility] Date of Appointment with PCP: 11/07/21 Time of Appointment with PCP: 4:30pm Provider Appointment Comment: [address] [place] [address] Contact Information Discharge Discharge Address: [address] [place] [address] [place] [address]
[2021-10-23] MEDS: ZOLPIDEM TARTRATE 10 MG TAB PO PRN (21:50)
[2021-10-24] MEDS ORDERED: VENLAFAXINE HCL XR 75 MG CAPXR PO SCH (09:00)
--- NOTE | 2021-10-24 09:04 | Psychiatric Progress Note ---
Date of Service October 24, 2021 Impression / Recommendations Impression The patient is a 31 year old with a history of narcolepsy with cataplexy, BPD, trauma, depression and anxiety who was admitted for worsening symptoms and SI with plan and rehearsal behaviors of hanging himself. Diagnostically consistent with JAIRO, MDD with anxious distress, and possible BPAD II given history of episodes convincing for hypomania. The patient is deemed unstable and requires psychiatric hospitalization for diagnostic clarification, safety and stabilization, medication management and development of further coping skills. 10/24/21: Ongoing SI and increased depression which he attributes to thinking about past trauma. Tolerating cross-taper will continue with this to target depression, anxiety and PTSD symptoms. (1) Major depressive disorder, recurrent episode, severe with anxious distress: (2) JAIRO (generalized anxiety disorder): (3) Narcolepsy and cataplexy: (4) Bipolar 2 disorder: (5) Borderline personality disorder: 10/24/21: Continue with sertraline 50mg qd, decrease venlafaxine ER to 37.5 mg 10/23/21: Increase sertraline to 50mg qd, decrease venlafaxine ER to 75mg. 10/22/21: Continue medications. Completing screening tools. Attempt to gather further collateral from his primary care provider and therapist tomorrow. 10/21/21: The patient was admitted to the [facility] ([facility] mental health unit) on q15 min checks (behavioral with suicide precautions) for safety. The patient will participate in group, recreational, and milieu therapies and will be offered additional individual and family sessions as clinically appropriate. -Cross taper from venlafaxine to sertraline -Continue Lamictal, ambien, clonidine, armodafinil -MDQ and [place] screen Inventory Assets Strengths: motivated to get job again once feeling better, lots of friends, periods of extended stability in the past, outpatient therapist Needs: additional coping skills, housing, medication adjustment Risk Factors Assessment Male: Yes : Yes Do You Have Access To A Gun?: No Health Problems: Yes Mental Health Diagnoses: Yes Substance Use Disorders: No Previous Attempt: No Family History of Suicide: Yes Previous Psychiatric Hospitalization: Yes Hopelessness: Yes Smoker: Yes Protective Factors Assessment Responsible for Young Children: Yes (has 6 yo daughter) Employed: No (lost job in May/Jun) Stable Relationships: Yes Supportive Family: No Good Rapport with Provider: Yes Interval History Identifying Information ANA CASTANO is a 31-year-old man who is currently homeless, has a history of narcolepsy with cataplexy borderline personality disorder, and was admitted on 10/20/21 21:52 on a 201 voluntary commitment for worsening depression and SI with rehearsal behaviors and plan to hang himself. Chief Complaint "I just don't think I can keep going like this". Review of Systems Sleep Information Total Hours of Sleep: 6 Meal Information Percent Meal Consumed - Breakfast: 50 Percent Meal Consumed - Lunch: 0 Percent Meal Consumed - Dinner: 100 Nutrition Comment: pt. allowed to sleep; meal dated, labeled and refrigerated Subjective Subjective Patient was seen & assessed and interval progress reviewed with treatment team nursing and social work. Endorsed significant depression last night due to past trauma. Had intrusive self-harm thoughts last night but did not act on these. Isolative to his room today. Reports trauma related nightmares last night. Continues to have SI with hopelessness. Tolerating cross-taper no side effects from sertraline, having some "head shocks" which he attributes to taper of effexor which he finds "very tolerable". Encouraged engagement with groups and he reluctantly agreed to walk a few laps around the unit with me. Physical Exam Psychiatric Orientation: alert and oriented x 3 Apperance: appropriately dressed and appropriately groomed Eye Contact: good eye contact Motor Behavior: no abnormal motor movements Speech: normal rate/rhythm/volume of speech Affect: + depressed affect and + tearful affect Mood: + depressed mood and + anxious mood Thought Process: goal directed thought process Thought Content: reality based without delusions Suicidal Thoughts: denies suicidal plan and denies suicidal intent (feels safe on the unit, agrees to alert nursing should he feel unsafe ); + reports suicidal thoughts Homicidal Thoughts: denies homicidal thoughts Hallucinations: no auditory hallucinations and no visual hallucinations Cognition: recent memory grossly intact, remote memory grossly intact, attention grossly intact and language grossly intact Estimated Intelligence: consistent with education level Insight: + fair insight Judgement: + limited judgement Vital Signs (Past 24 Hours) Last Vital Signs Temp 36.4 C L 10/24/21 06:00 Pulse 76 10/24/21 06:02 Resp 16 10/23/21 06:37 BP 151/94 H 10/24/21 06:02 Pulse Ox 96 10/20/21 21:01 Results & Data ([facility]) Current Inpatient Medications Current Inpatient Medications: Current Inpatient Medications Acetaminophen (Acetaminophen 325 Mg Tab) 650 mg PO Q4H PRN PRN Reason: Headache or Minor Fever Stop: 11/19/21 21:51 Al Hydrox/Mg Hydrox/Simethicone (Aluminum/Magnesium Susp 30 Ml Udc) 30 ml PO Q4H PRN PRN Reason: GI Upset Stop: 11/19/21 21:51 Bismuth Subsalicylate (Bismuth Subsalicylate Liqd 236 Ml) 15 ml PO PRN PRN PRN Reason: Loose Stool Stop: 11/19/21 21:51 Chlordiazepoxide HCl (Chlordiazepoxide Hcl 25 Mg Cap) 25 mg PO DAILY PRN PRN Reason: Anxiety Stop: 11/20/21 09:16 Last Admin: 10/23/21 13:00 Dose: 25 mg Documented by: Clonidine HCl (Clonidine Hcl 0.1 Mg Tab) 0.1 mg PO BID [facility] Stop: 11/20/21 20:59 Last Admin: 10/23/21 20:34 Dose: 0.1 mg Documented by: Hydroxyzine HCl (Hydroxyzine Hcl 25 Mg Tab) 50 mg PO HSZ PRN PRN Reason: Insomnia Stop: 11/19/21 21:51 Last Admin: 10/22/21 00:08 Dose: 50 mg Documented by: Hydroxyzine HCl (Hydroxyzine Hcl 25 Mg Tab) 25 mg PO Q4H PRN PRN Reason: Anxiety Stop: 11/19/21 21:51 Lamotrigine (Lamotrigine 100 Mg Tab) 100 mg PO BID [facility] Stop: 11/19/21 20:59 Last Admin: 10/23/21 20:34 Dose: 100 mg Documented by: Magnesium Hydroxide (Magnesium Hydroxide Susp 30 Ml Udc) 30 ml PO DAILY PRN PRN Reason: Constipation Stop: 11/19/21 21:51 Miscellaneous (Remove Nicoderm Patch) 1 ea N/A DAILY@0859 [facility] Stop: 11/21/21 08:58 Last Admin: 10/23/21 08:47 Dose: 1 ea Documented by: Nicotine (Nicotine 21 Mg/24 Hr Tdsy) 21 mg TD QAM [facility] Stop: 11/21/21 08:59 Last Admin: 10/23/21 08:48 Dose: 21 mg Documented by: Nicotine Polacrilex (Nicotine Polacrilex 2 Mg Gum) 1 piece MT PRN PRN PRN Reason: Nicotine craving Stop: 11/19/21 22:38 Last Admin: 10/23/21 21:50 Dose: 1 piece Documented by: Armodafinil - (Patient's Own Med) 1 ea PO DAILY [facility] Stop: 11/20/21 08:59 Last Admin: 10/23/21 08:58 Dose: 1 ea Documented by: Sertraline HCl (Sertraline Hcl 50 Mg Tablet) 50 mg PO QAM [facility] Stop: 11/23/21 08:59 Sodium Chloride (Sodium Chloride 0.65% Na Soln 45 Ml ([place])) 1 - 2 sprays NA PRN PRN PRN Reason: Nasal Dryness/Congestion Stop: 11/19/21 21:51 Venlafaxine HCl (Venlafaxine Hcl Xr 75 Mg Capxr) 75 mg PO DAILY [facility] Stop: 11/23/21 08:59 Zolpidem Tartrate (Zolpidem Tartrate 10 Mg Tab) 10 mg PO HS PRN PRN Reason: Sleep Stop: 11/19/21 22:33 Last Admin: 10/23/21 21:50 Dose: 10 mg Documented by: Mental Health & Subst Abuse Tx Psychiatrist Name of Psychiatrist: None- uses PCP for meds Therapist Name of Therapist: Mike Barton Therapist's Date of Therapist Appointment: 11/07/21 Time of Therapist Appointment: 11am Therapy Appointment Comment: [address] [place] [address] Ornamental Rail Installer Name of Ornamental Rail Installer: None Post Discharge Appointments Primary Care Physician Name Of Family Doctor: [facility]- Dr. Kohli [facility] Date of Appointment with PCP: 11/07/21 Time of Appointment with PCP: 4:30pm Provider Appointment Comment: [address] [place] [address] Contact Information Discharge Discharge Address: [address] [place] [address] [place] [address]
[2021-10-24] MEDS: NICOTINE 21 MG/24 HR TDSY TD SCH (09:32)
[2021-10-24] MEDS: SERTRALINE HCL 50 MG TABLET PO SCH (09:34)
[2021-10-24] MEDS: cloNIDine HCL 0.1 MG TAB PO SCH ×2 (09:34→21:30)
[2021-10-24] MEDS: lamoTRIgine 100 MG TAB PO SCH ×2 (09:34→21:30)
[2021-10-24] MEDS: ARMODAFINIL PO SCH (09:36)
[2021-10-24] MEDS: NICOTINE POLACRILEX 2 MG GUM MT PRN ×2 (14:23→21:54)
[2021-10-24] MEDS: ZOLPIDEM TARTRATE 10 MG TAB PO PRN (21:30)
[2021-10-25] MEDS: lamoTRIgine 100 MG TAB PO SCH ×2 (08:00→21:11)
[2021-10-25] MEDS: ARMODAFINIL PO SCH (08:00)
[2021-10-25] MEDS: SERTRALINE HCL 50 MG TABLET PO SCH (08:01)
[2021-10-25] MEDS: VENLAFAXINE HCL XR 37.5 MG CAPXR PO SCH (08:02)
[2021-10-25] MEDS: cloNIDine HCL 0.1 MG TAB PO SCH ×2 (08:04→21:10)
[2021-10-25] MEDS: NICOTINE 21 MG/24 HR TDSY TD SCH (08:05)
[2021-10-25] MEDS: NICOTINE POLACRILEX 2 MG GUM MT PRN ×4 (09:05→17:44)
--- NOTE | 2021-10-25 09:06 | Psychiatric Progress Note ---
Date of Service October 25, 2021 Impression / Recommendations Impression The patient is a 31 year old with a history of narcolepsy with cataplexy, BPD, trauma, depression and anxiety who was admitted for worsening symptoms and SI with plan and rehearsal behaviors of hanging himself. Diagnostically consistent with JAIRO, MDD with anxious distress, and possible BPAD II given history of episodes convincing for hypomania. The patient is deemed unstable and requires psychiatric hospitalization for diagnostic clarification, safety and stabilization, medication management and development of further coping skills. 10/25/21: Improved engagement yesterday afternoon. Having withdrawal side effects from venlafaxine slowed down taper. Suspect night sweats may be due to venlafaxine side effect/withdrawal versus night terror from PTSD. Discussed option to increase qhs dose of clonidine to further target PTSD night terrors which he'd like to do reviewed side effects including but not limited to decreased BP, syncope. Family meeting held with a friend who he identifies as a good support. (1) Major depressive disorder, recurrent episode, severe with anxious distress: (2) JAIRO (generalized anxiety disorder): (3) Narcolepsy and cataplexy: (4) Bipolar 2 disorder: (5) Borderline personality disorder: 10/25/21: Continue with sertraline, decrease venlafaxine to 37.5mg, increase clonidine to 0.1 mg qAM & 0.2 mg qhs 10/24/21: Continue with sertraline 50mg qd, c/w venlafaxine ER 75 mg 10/23/21: Increase sertraline to 50mg qd, decrease venlafaxine ER to 75mg. 10/22/21: Continue medications. Completing screening tools. Attempt to gather furt her collateral from his primary care provider and therapist tomorrow. 10/21/21: The patient was admitted to the [facility] ([facility] inpatient mental health unit) on q15 min checks (behavioral with suicide precautions) for safety. The patient will participate in group, recreational, and milieu therapies and will be offered additional individual and family sessions as clinically appropriate. -Cross taper from venlafaxine to sertraline -Continue Lamictal, ambien, clonidine, armodafinil -MDQ and [place] screen Inventory Assets Strengths: motivated to get job again once feeling better, lots of friends, periods of extended stability in the past, outpatient therapist Needs: additional coping skills, housing, medication adjustment Risk Factors Assessment Male: Yes : Yes Do You Have Access To A Gun?: No Health Problems: Yes Mental Health Diagnoses: Yes Substance Use Disorders: No Previous Attempt: No Family History of Suicide: Yes Previous Psychiatric Hospitalization: Yes Hopelessness: Yes Smoker: Yes Protective Factors Assessment Responsible for Young Children: Yes (has 6 yo daughter) Employed: No (lost job in May/Jun) Stable Relationships: Yes Supportive Family: No Good Rapport with Provider: Yes Interval History Identifying Information ANA CASTNAO is a 31-year-old man who is currently homeless, has a history of narcolepsy with cataplexy borderline personality disorder, and was admitted on 10/20/21 21:52 on a 201 voluntary commitment for worsening depression and SI with rehearsal behaviors and plan to hang himself. Chief Complaint "I'm trying today". Review of Systems Sleep Information Total Hours of Sleep: 8 Meal Information Percent Meal Consumed - Breakfast: 0 Percent Meal Consumed - Lunch: 0 Percent Meal Consumed - Dinner: 15 Nutrition Comment: pt. allowed to sleep; meal dated, labeled and refrigerated Subjective Subjective Patient was seen & assessed and interval progress reviewed with treatment team nursing and social work. Yesterday afternoon came out of his room more and in the evening ate dinner, showered, did laundry. Attended groups yesterday evening. This morning was up early and watching TV. Mood is improving, reviewed challenge of his black and white thinking which he feels "is a big problem". Continues to have periods of chronic intermittent SI but no thoughts nor urges for self-harm today. Some "head zaps" continuing last night from venlafaxine taper. Has been waking up at night with night sweats, states this happens on average a few times per week. he's not sure if due to nightmares versus night- sweating. Physical Exam Psychiatric Orientation: alert and oriented x 3 Apperance: appropriately dressed and appropriately groomed Eye Contact: good eye contact Motor Behavior: no abnormal motor movements Speech: normal rate/rhythm/volume of speech Affect: + anxious affect Mood: + depressed mood and + anxious mood Thought Process: goal directed thought process Thought Content: reality based without delusions Suicidal Thoughts: denies suicidal plan and denies suicidal intent (feels safe on the unit, agrees to alert nursing should he feel unsafe ); + reports suicidal thoughts Homicidal Thoughts: denies homicidal thoughts Hallucinations: no auditory hallucinations and no visual hallucinations Cognition: recent memory grossly intact, remote memory grossly intact, attention grossly intact and language grossly intact Estimated Intelligence: consistent with education level Insight: + fair insight Judgement: + limited judgement Vital Signs (Past 24 Hours) Last Vital Signs Temp 36.4 C L 10/25/21 06:00 Pulse 58 L 10/25/21 06:00 Resp 16 10/25/21 06:00 BP 126/88 10/25/21 06:29 Pulse Ox 96 10/20/21 21:01 Results & Data ([facility]) Current Inpatient Medications Current Inpatient Medications: Current Inpatient Medications Acetaminophen (Acetaminophen 325 Mg Tab) 650 mg PO Q4H PRN PRN Reason: Headache or Minor Fever Stop: 11/19/21 21:51 Al Hydrox/Mg Hydrox/Simethicone (Aluminum/Magnesium Susp 30 Ml Udc) 30 ml PO Q4H PRN PRN Reason: GI Upset Stop: 11/19/21 21:51 Bismuth Subsalicylate (Bismuth Subsalicylate Liqd 236 Ml) 15 ml PO PRN PRN PRN Reason: Loose Stool Stop: 11/19/21 21:51 Chlordiazepoxide HCl (Chlordiazepoxide Hcl 25 Mg Cap) 25 mg PO DAILY PRN PRN Reason: Anxiety Stop: 11/20/21 09:16 Last Admin: 10/23/21 13:00 Dose: 25 mg Documented by: Clonidine HCl (Clonidine Hcl 0.1 Mg Tab) 0.1 mg PO BID [facility] Stop: 11/20/21 20:59 Last Admin: 10/25/21 08:04 Dose: 0.1 mg Documented by: Hydroxyzine HCl (Hydroxyzine Hcl 25 Mg Tab) 50 mg PO HSZ PRN PRN Reason: Insomnia Stop: 11/19/21 21:51 Last Admin: 10/22/21 00:08 Dose: 50 mg Documented by: Hydroxyzine HCl (Hydroxyzine Hcl 25 Mg Tab) 25 mg PO Q4H PRN PRN Reason: Anxiety Stop: 11/19/21 21:51 Lamotrigine (Lamotrigine 100 Mg Tab) 100 mg PO BID [facility] Stop: 11/19/21 20:59 Last Admin: 10/25/21 08:00 Dose: 100 mg Documented by: Magnesium Hydroxide (Magnesium Hydroxide Susp 30 Ml Udc) 30 ml PO DAILY PRN PRN Reason: Constipation Stop: 11/19/21 21:51 Miscellaneous (Remove Nicoderm Patch) 1 ea N/A DAILY@0859 [facility] Stop: 11/21/21 08:58 Last Admin: 10/25/21 08:08 Dose: 1 ea Documented by: Nicotine (Nicotine 21 Mg/24 Hr Tdsy) 21 mg TD QAM [facility] Stop: 11/21/21 08:59 Last Admin: 10/25/21 08:05 Dose: 21 mg Documented by: Nicotine Polacrilex (Nicotine Polacrilex 2 Mg Gum) 1 piece MT PRN PRN PRN Reason: Nicotine craving Stop: 11/19/21 22:38 Last Admin: 10/24/21 21:54 Dose: 1 piece Documented by: Armodafinil - (Patient's Own Med) 1 ea PO DAILY [facility] Stop: 11/20/21 08:59 Last Admin: 10/25/21 08:00 Dose: 1 ea Documented by: Sertraline HCl (Sertraline Hcl 50 Mg Tablet) 50 mg PO QAM [facility] Stop: 11/23/21 08:59 Last Admin: 10/25/21 08:01 Dose: 50 mg Documented by: Sodium Chloride (Sodium Chloride 0.65% Na Soln 45 Ml ([place])) 1 - 2 sprays NA PRN PRN PRN Reason: Nasal Dryness/Congestion Stop: 11/19/21 21:51 Venlafaxine HCl (Venlafaxine Hcl Xr 37.5 Mg Capxr) 37.5 mg PO DAILY [facility] Stop: 11/24/21 08:59 Last Admin: 10/25/21 08:02 Dose: 37.5 mg Documented by: Zolpidem Tartrate (Zolpidem Tartrate 10 Mg Tab) 10 mg PO HS PRN PRN Reason: Sleep Stop: 11/19/21 22:33 Last Admin: 10/24/21 21:30 Dose: 10 mg Documented by: Mental Health & Subst Abuse Tx Psychiatrist Name of Psychiatrist: None- uses PCP for meds Therapist Name of Therapist: Mike Barton Therapist's Date of Therapist Appointment: 11/07/21 Time of Therapist Appointment: 11am Therapy Appointment Comment: [address] [place] [address] Digital Strategist Senior Manager Name of Digital Strategist Senior Manager: None Post Discharge Appointments Primary Care Physician Name Of Family Doctor: [facility]- Dr. Kohli Primary [facility] Date of Appointment with PCP: 11/07/21 Time of Appointment with PCP: 4:30pm Provider Appointment Comment: [address] [place] [address] Contact Information Discharge Discharge Address: [address] [place] [address] [address] [place] [address]
[2021-10-25] MEDS ORDERED: VENLAFAXINE HCL XR 37.5 MG CAPXR PO ONE (09:09)
[2021-10-25] MEDS: ZOLPIDEM TARTRATE 10 MG TAB PO PRN (21:11)
[2021-10-26] MEDS: SERTRALINE HCL 50 MG TABLET PO SCH (08:07)
[2021-10-26] MEDS: ARMODAFINIL PO SCH (08:08)
[2021-10-26] MEDS: lamoTRIgine 100 MG TAB PO SCH ×2 (08:09→21:07)
[2021-10-26] MEDS: cloNIDine HCL 0.1 MG TAB PO SCH ×2 (08:09→21:07)
[2021-10-26] MEDS: VENLAFAXINE HCL XR 37.5 MG CAPXR PO SCH (08:10)
--- NOTE | 2021-10-26 08:58 | Psychiatric Progress Note ---
Date of Service October 26, 2021 Impression / Recommendations Impression The patient is a 31 year old with a history of narcolepsy with cataplexy, BPD, trauma, depression and anxiety who was admitted for worsening symptoms and SI with plan and rehearsal behaviors of hanging himself. Diagnostically consistent with JAIRO, MDD with anxious distress, and possible BPAD II given history of episodes convincing for hypomania. The patient is deemed unstable and requires psychiatric hospitalization for diagnostic clarification, safety and stabilization, medication management and development of further coping skills. 10/26/21: Slow improvement in lessening of intensity and frequency of self-harm urges and SI, suspect some of the anxiety of discussions about length of stay associated with homelessness but also due to BPD and uncertainty of his mood swing changes and impulsivity. Tolerating medications well, will continue with slow venlafaxine taper to discontinuation especially as this seems to have been contributing to recent night sweats. (1) Major depressive disorder, recurrent episode, severe with anxious distress: (2) JAIRO (generalized anxiety disorder): (3) Narcolepsy and cataplexy: (4) Bipolar 2 disorder: (5) Borderline personality disorder: 10/26/21: Continue with medications. One more dose of venlafaxine ER 37.5 mg then discontinue. Motivational interviewing regarding adding daily structure, healthy habits, routines and ongoing safety planning. 10/25/21: Continue with sertraline, decrease venlafaxine to 37.5mg, increase clonidine to 0.1 mg qAM & 0.2 mg qhs 10/24/21: Continue with sertraline 50mg qd, c/w venlafaxine ER 75 mg 10/23/21: Increase sertraline to 50mg qd, decrease venlafaxine ER to 75mg. 10/22/21: Continue medications. Completing screening tools. Attempt to gather further collateral from his primary care provider and therapist tomorrow. 10/21/21: The patient was admitted to the [facility] ([facility] inpatient mental health unit) on q15 min checks (behavioral with suicide precautions) for safety. The pa tient will participate in group, recreational, and milieu therapies and will be offered additional individual and family sessions as clinically appropriate. -Cross taper from venlafaxine to sertraline -Continue Lamictal, ambien, clonidine, armodafinil -MDQ and [place] screen Inventory Assets Strengths: motivated to get job again once feeling better, lots of friends, periods of extended stability in the past, outpatient therapist Needs: additional coping skills, housing, medication adjustment Risk Factors Assessment Male: Yes : Yes Do You Have Access To A Gun?: No Health Problems: Yes Mental Health Diagnoses: Yes Substance Use Disorders: No Previous Attempt: No Family History of Suicide: Yes Previous Psychiatric Hospitalization: Yes Hopelessness: Yes Smoker: Yes Protective Factors Assessment Responsible for Young Children: Yes (has 6 yo daughter) Employed: No (lost job in May/Jun) Stable Relationships: Yes Supportive Family: No Good Rapport with Provider: Yes Interval History Identifying Information ANA CASTANO is a 31-year-old man who is currently homeless, has a history of narcolepsy with cataplexy borderline personality disorder, and was admitted on 10/20/21 21:52 on a 201 voluntary commitment for worsening depression and SI with rehearsal behaviors and plan to hang himself. Chief Complaint "I was pretty good but now I'm anxious about my length of stay". Review of Systems Sleep Information Total Hours of Sleep: 7 Meal Information Percent Meal Consumed - Breakfast: 50 Percent Meal Consumed - Lunch: 50 Percent Meal Consumed - Dinner: 75 Nutrition Comment: pt. allowed to sleep; meal dated, labeled and refrigerated Subjective Subjective Patient was seen & assessed and interval progress reviewed with treatment team nursing and social work. Very animated and jovial last night. Working on a daily schedule to help with structure after discharge. Has been attending groups. Today reported worsening mood in context of discussions about length of stay discussions as he is starting to feel "safer" but unsure he could remain safe outside of the hospital. No longer experiencing thoughts of self-harm. States SI has transitioned to less active SI and is more passive today. Still some "head zaps" but lessening, some night sweats last night but feels he sleep better. No other medication side effects. Physical Exam Psychiatric Orientation: alert and oriented x 3 Apperance: appropriately dressed and appropriately groomed Eye Contact: good eye contact Motor Behavior: no abnormal motor movements Speech: normal rate/rhythm/volume of speech Affect: + labile affect (joking and laughing at times, other times appears very anxious or tearful) Mood: + depressed mood and + anxious mood Thought Process: goal directed thought process Thought Content: reality based without delusions Suicidal Thoughts: denies suicidal plan and denies suicidal intent (feels safe on the unit, agrees to alert nursing should he feel unsafe ); + reports suicidal thoughts Homicidal Thoughts: denies homicidal thoughts Hallucinations: no auditory hallucinations and no visual hallucinations Cognition: recent memory grossly intact, remote memory grossly intact, attention grossly intact and language grossly intact Estimated Intelligence: consistent with education level Insight: + fair insight Judgement: + limited judgement Vital Signs (Past 24 Hours) Last Vital Signs Temp 36.3 C L 10/26/21 06:00 Pulse 83 10/26/21 06:25 Resp 16 10/26/21 06:00 BP 117/71 10/26/21 06:25 Pulse Ox 96 10/20/21 21:01 Results & Data ([facility]) Current Inpatient Medications Current Inpatient Medications: Current Inpatient Medications Acetaminophen (Acetaminophen 325 Mg Tab) 650 mg PO Q4H PRN PRN Reason: Headache or Minor Fever Stop: 11/19/21 21:51 Al Hydrox/Mg Hydrox/Simethicone (Aluminum/Magnesium Susp 30 Ml Udc) 30 ml PO Q4H PRN PRN Reason: GI Upset Stop: 11/19/21 21:51 Bismuth Subsalicylate (Bismuth Subsalicylate Liqd 236 Ml) 15 ml PO PRN PRN PRN Reason: Loose Stool Stop: 11/19/21 21:51 Chlordiazepoxide HCl (Chlordiazepoxide Hcl 25 Mg Cap) 25 mg PO DAILY PRN PRN Reason: Anxiety Stop: 11/20/21 09:16 Last Admin: 10/23/21 13:00 Dose: 25 mg Documented by: Clonidine HCl (Clonidine Hcl 0.1 Mg Tab) 0.1 mg PO QAM [place] Stop: 11/25/21 08:59 Last Admin: 10/26/21 08:09 Dose: 0.1 mg Documented by: Clonidine HCl (Clonidine Hcl 0.1 Mg Tab) 0.2 mg PO HS [place] Stop: 11/24/21 21:59 Last Admin: 10/25/21 21:10 Dose: 0.2 mg Documented by: Hydroxyzine HCl (Hydroxyzine Hcl 25 Mg Tab) 50 mg PO HSZ PRN PRN Reason: Insomnia Stop: 11/19/21 21:51 Last Admin: 10/22/21 00:08 Dose: 50 mg Documented by: Hydroxyzine HCl (Hydroxyzine Hcl 25 Mg Tab) 25 mg PO Q4H PRN PRN Reason: Anxiety Stop: 11/19/21 21:51 Lamotrigine (Lamotrigine 100 Mg Tab) 100 mg PO BID [facility] Stop: 11/19/21 20:59 Last Admin: 10/26/21 08:09 Dose: 100 mg Documented by: Magnesium Hydroxide (Magnesium Hydroxide Susp 30 Ml Udc) 30 ml PO DAILY PRN PRN Reason: Constipation Stop: 11/19/21 21:51 Miscellaneous (Remove Nicoderm Patch) 1 ea N/A DAILY@0859 [facility] Stop: 11/21/21 08:58 Last Admin: 10/26/21 08:10 Dose: 1 ea Documented by: Nicotine (Nicotine 21 Mg/24 Hr Tdsy) 21 mg TD QAM [facility] Stop: 11/21/21 08:59 Last Admin: 10/25/21 08:05 Dose: 21 mg Documented by: Nicotine Polacrilex (Nicotine Polacrilex 2 Mg Gum) 1 piece MT PRN PRN PRN Reason: Nicotine craving Stop: 11/19/21 22:38 Last Admin: 10/25/21 17:44 Dose: 1 piece Documented by: Armodafinil - (Patient's Own Med) 1 ea PO DAILY [place] Stop: 11/20/21 08:59 Last Admin: 10/26/21 08:08 Dose: 1 ea Documented by: Sertraline HCl (Sertraline Hcl 50 Mg Tablet) 50 mg PO QAM [place] Stop: 11/23/21 08:59 Last Admin: 10/26/21 08:07 Dose: 50 mg Documented by: Sodium Chloride (Sodium Chloride 0.65% Na Soln 45 Ml ([place])) 1 - 2 sprays NA PRN PRN PRN Reason: Nasal Dryness/Congestion Stop: 11/19/21 21:51 Venlafaxine HCl (Venlafaxine Hcl Xr 37.5 Mg Capxr) 37.5 mg PO DAILY [place] Stop: 11/24/21 08:59 Last Admin: 10/26/21 08:10 Dose: 37.5 mg Documented by: Zolpidem Tartrate (Zolpidem Tartrate 10 Mg Tab) 10 mg PO HS PRN PRN Reason: Sleep Stop: 11/19/21 22:33 Last Admin: 10/25/21 21:11 Dose: 10 mg Documented by: Mental Health & Subst Abuse Tx Psychiatrist Name of Psychiatrist: None- uses PCP for meds Therapist Name of Therapist: Mike Naylor- Natali Barton Therapist's Date of Therapist Appointment: 11/07/21 Time of Therapist Appointment: 11am Therapy Appointment Comment: [address] [place] [address] Career Development Specialist Name of Career Development Specialist: None Post Discharge Appointments Primary Care Physician Name Of Family Doctor: [facility]- Dr. Kohli [facility] Date of Appointment with PCP: 11/07/21 Time of Appointment with PCP: 4:30pm Provider Appointment Comment: [address] [place] [address] Neurologist Name of Neurologist: [facility] Mike Hooper - Chaparrita Barraza PA-C Neurologist's Date of Appointment with Neurologist: 10/30/21 Time of Appointment with Neurologist: 1:00 PM Neurology Appointment Comment: [address] [place] [address] Contact Information Discharge Discharge Address: [address] [place] [address] [address] [id number]
[2021-10-26] MEDS: NICOTINE POLACRILEX 2 MG GUM MT PRN ×3 (09:14→21:54)
[2021-10-26] MEDS: NICOTINE 21 MG/24 HR TDSY TD SCH (10:30)
[2021-10-26] MEDS: ZOLPIDEM TARTRATE 10 MG TAB PO PRN (21:10)
[2021-10-27] MEDS: VENLAFAXINE HCL XR 37.5 MG CAPXR PO SCH (08:13)
[2021-10-27] MEDS: ARMODAFINIL PO SCH (08:13)
[2021-10-27] MEDS: lamoTRIgine 100 MG TAB PO SCH ×2 (08:13→20:47)
[2021-10-27] MEDS: SERTRALINE HCL 50 MG TABLET PO SCH (08:14)
[2021-10-27] MEDS: NICOTINE 21 MG/24 HR TDSY TD SCH (08:14)
[2021-10-27] MEDS: cloNIDine HCL 0.1 MG TAB PO SCH ×2 (08:14→20:48)
--- NOTE | 2021-10-27 09:05 | Psychiatric Progress Note ---
Date of Service October 27, 2021 Impression / Recommendations Impression The patient is a 31 year old with a history of narcolepsy with cataplexy, BPD, trauma, depression and anxiety who was admitted for worsening symptoms and SI with plan and rehearsal behaviors of hanging himself. Diagnostically consistent with JAIRO, MDD with anxious distress, and possible BPAD II given history of episodes convincing for hypomania. The patient is requiring psychiatric hospitalization for lack of safe disposition option which would cause significant increase in mood symptoms and risk of harm to self given mood lability. 10/27/21: Depression improving, still anxious about lack of housing. Tolerating discontinuation of venlafaxine with no further withdrawal side effects. (1) Major depressive disorder, recurrent episode, severe with anxious distress: (2) JAIRO (generalized anxiety disorder): (3) Narcolepsy and cataplexy: (4) Bipolar 2 disorder: (5) Borderline personality disorder: 10/27/21: Discontinued venlafaxine. Continue with medications. 10/26/21: Continue with medications. One more dose of venlafaxine ER 37.5 mg then discontinue. Motivational interviewing regarding adding daily structure, healthy habits, routines and ongoing safety planning. 10/25/21: Continue with sertraline, decrease venlafaxine to 37.5mg, increase clonidine to 0.1 mg qAM & 0.2 mg qhs 10/24/21: Continue with sertraline 50mg qd, c/w venlafaxine ER 75 mg 10/23/21: Increase sertraline to 50mg qd, decrease venlafaxine ER to 75mg. 10/22/21: Continue medications. Completing screening tools. Attempt to gather further collateral from his primary care provider and therapist tomorrow. 10/21/21: The patient was admitted to the [facility] ([facility] mental health unit) on q15 min checks (behavioral with suicide precautions) for safety. The patient will participate in group, recreational, and milieu therapies and will be offered additional individual and family sessions as clinically appropriate. -Cross taper from venlafaxine to sertraline -Continue Lamictal, ambien, clonidine, armodafinil -MDQ and [place] screen Inventory Assets Strengths: motivated to get job again once feeling better, lots of friends, periods of extended stability in the past, outpatient therapist Needs: additional coping skills, housing, medication adjustment Risk Factors Assessment Male: Yes : Yes Do You Have Access To A Gun?: No Health Problems: Yes Mental Health Diagnoses: Yes Substance Use Disorders: No Previous Attempt: No Family History of Suicide: Yes Previous Psychiatric Hospitalization: Yes Hopelessness: Yes Smoker: Yes Protective Factors Assessment Responsible for Young Children: Yes (has 6 yo daughter) Employed: No (lost job in May/Jun) Stable Relationships: Yes Supportive Family: No Good Rapport with Provider: Yes Interval History Identifying Information ANA CASTANO is a 31-year-old man who is currently homeless, has a history of narcolepsy with cataplexy borderline personality disorder, and was admitted on 10/20/21 21:52 on a 201 voluntary commitment for worsening depression and SI with rehearsal behaviors and plan to hang himself. Chief Complaint "I feel a lot better". Review of Systems Sleep Information Total Hours of Sleep: 6 Meal Information Percent Meal Consumed - Breakfast: 75 Percent Meal Consumed - Lunch: 75 Percent Meal Consumed - Dinner: 100 Nutrition Comment: pt. allowed to sleep; meal dated, labeled and refrigerated Subjective Subjective Patient was seen & assessed and interval progress reviewed with treatment team nursing and social work. Slept well. Engaged with groups. Denies active SI. Interactive with peers, laughing, socializing. Reports how hospitalization has been very helpful for him and that his mood has improved. Biggest challenge to his mood now is lack of housing as option to live with his friend is no longer viable as she is in the process of moving. He completed intake with [facility] in [place]. Physical Exam Psychiatric Orientation: alert and oriented x 3 Apperance: appropriately dressed and appropriately groomed Eye Contact: good eye contact Motor Behavior: no abnormal motor movements Speech: normal rate/rhythm/volume of speech Affect: + anxious affect and + tearful affect (when discussing past trauma and how it is impacted his sense of self ) Mood: + depressed mood and + anxious mood Thought Process: goal directed thought process Thought Content: reality based without delusions Suicidal Thoughts: denies suicidal thoughts Homicidal Thoughts: denies homicidal thoughts Hallucinations: no auditory hallucinations and no visual hallucinations Cognition: recent memory grossly intact, remote memory grossly intact, attention grossly intact and language grossly intact Estimated Intelligence: consistent with education level Insight: + fair insight Judgement: + fair judgement Vital Signs (Past 24 Hours) Last Vital Signs Temp 36.5 C 10/27/21 06:44 Pulse 66 10/27/21 06:44 Resp 16 10/27/21 06:44 BP 113/78 10/27/21 06:44 Pulse Ox 96 10/20/21 21:01 Results & Data ([facility]) Current Inpatient Medications Current Inpatient Medications: Current Inpatient Medications Acetaminophen (Acetaminophen 325 Mg Tab) 650 mg PO Q4H PRN PRN Reason: Headache or Minor Fever Stop: 11/19/21 21:51 Al Hydrox/Mg Hydrox/Simethicone (Aluminum/Magnesium Susp 30 Ml Udc) 30 ml PO Q4H PRN PRN Reason: GI Upset Stop: 11/19/21 21:51 Bismuth Subsalicylate (Bismuth Subsalicylate Liqd 236 Ml) 15 ml PO PRN PRN PRN Reason: Loose Stool Stop: 11/19/21 21:51 Chlordiazepoxide HCl (Chlordiazepoxide Hcl 25 Mg Cap) 25 mg PO DAILY PRN PRN Reason: Anxiety Stop: 11/20/21 09:16 Last Admin: 10/23/21 13:00 Dose: 25 mg Documented by: Clonidine HCl (Clonidine Hcl 0.1 Mg Tab) 0.1 mg PO QAM [place] Stop: 11/25/21 08:59 Last Admin: 10/27/21 08:14 Dose: 0.1 mg Documented by: Clonidine HCl (Clonidine Hcl 0.1 Mg Tab) 0.2 mg PO HS [place] Stop: 11/24/21 21:59 Last Admin: 10/26/21 21:07 Dose: 0.2 mg Documented by: Hydroxyzine HCl (Hydroxyzine Hcl 25 Mg Tab) 50 mg PO HSZ PRN PRN Reason: Insomnia Stop: 11/19/21 21:51 Last Admin: 10/22/21 00:08 Dose: 50 mg Documented by: Hydroxyzine HCl (Hydroxyzine Hcl 25 Mg Tab) 25 mg PO Q4H PRN PRN Reason: Anxiety Stop: 11/19/21 21:51 Lamotrigine (Lamotrigine 100 Mg Tab) 100 mg PO BID [place] Stop: 11/19/21 20:59 Last Admin: 10/27/21 08:13 Dose: 100 mg Documented by: Magnesium Hydroxide (Magnesium Hydroxide Susp 30 Ml Udc) 30 ml PO DAILY PRN PRN Reason: Constipation Stop: 11/19/21 21:51 Last Admin: 10/26/21 19:10 Dose: 30 ml Documented by: Miscellaneous (Remove Nicoderm Patch) 1 ea N/A DAILY@0859 [place] Stop: 11/21/21 08:58 Last Admin: 10/27/21 08:16 Dose: Not Given Documented by: Nicotine (Nicotine 21 Mg/24 Hr Tdsy) 21 mg TD QAM [place] Stop: 11/21/21 08:59 Last Admin: 10/27/21 08:14 Dose: 21 mg Documented by: Nicotine Polacrilex (Nicotine Polacrilex 2 Mg Gum) 1 piece MT PRN PRN PRN Reason: Nicotine craving Stop: 11/19/21 22:38 Last Admin: 10/26/21 21:54 Dose: 1 piece Documented by: Armodafinil - (Patient's Own Med) 1 ea PO DAILY [place] Stop: 11/20/21 08:59 Last Admin: 10/27/21 08:13 Dose: 1 ea Documented by: Sertraline HCl (Sertraline Hcl 50 Mg Tablet) 50 mg PO QAM [place] Stop: 11/23/21 08:59 Last Admin: 10/27/21 08:14 Dose: 50 mg Documented by: Sodium Chloride (Sodium Chloride 0.65% Na Soln 45 Ml ([place])) 1 - 2 sprays NA PRN PRN PRN Reason: Nasal Dryness/Congestion Stop: 11/19/21 21:51 Venlafaxine HCl (Venlafaxine Hcl Xr 37.5 Mg Capxr) 37.5 mg PO DAILY [place] Stop: 11/24/21 08:59 Last Admin: 10/27/21 08:13 Dose: 37.5 mg Documented by: Zolpidem Tartrate (Zolpidem Tartrate 10 Mg Tab) 10 mg PO HS PRN PRN Reason: Sleep Stop: 11/19/21 22:33 Last Admin: 10/26/21 21:10 Dose: 10 mg Documented by: Mental Health & Subst Abuse Tx Psychiatrist Name of Psychiatrist: None- uses PCP for meds Therapist Name of Therapist: Mike Barton Therapist's Date of Therapist Appointment: 11/07/21 Time of Therapist Appointment: 11am Therapy Appointment Comment: [address] [place] [address] Communications Manager Name of Communications Manager: None Post Discharge Appointments Primary Care Physician Name Of Family Doctor: [facility]- Dr. Kohli [facility] Date of Appointment with PCP: 11/07/21 Time of Appointment with PCP: 4:30pm Provider Appointment Comment: [address] [place] [address] Neurologist Name of Neurologist: [facility] Mike Hooper - Chaparrita Barraza PA-C Neurologist's Date of Appointment with Neurologist: 10/30/21 Time of Appointment with Neurologist: 1:00 PM Neurology Appointment Comment: [address] [place] [address] Contact Information Discharge Discharge Address: [address] [place] [address] [address] [place] [address]
[2021-10-27] MEDS: chlordiazePOXIDE HCl 25 MG CAP PO PRN (11:22)
[2021-10-27] MEDS: NICOTINE POLACRILEX 2 MG GUM MT PRN ×3 (11:22→20:08)
[2021-10-27] MEDS: ZOLPIDEM TARTRATE 10 MG TAB PO PRN (20:47)
[2021-10-28] MEDS: NICOTINE 21 MG/24 HR TDSY TD SCH (11:01)
[2021-10-28] MEDS: ARMODAFINIL PO SCH (11:01)
[2021-10-28] MEDS: cloNIDine HCL 0.1 MG TAB PO SCH ×2 (11:01→21:36)
[2021-10-28] MEDS: lamoTRIgine 100 MG TAB PO SCH ×2 (11:01→21:36)
[2021-10-28] MEDS: SERTRALINE HCL 50 MG TABLET PO SCH (11:02)
--- NOTE | 2021-10-28 15:14 | Psychiatric Progress Note ---
Date of Service October 28, 2021 Impression / Recommendations Impression The patient is a 31 year old with a history of narcolepsy with cataplexy, BPD, trauma, depression and anxiety who was admitted for worsening symptoms and SI with plan and rehearsal behaviors of hanging himself. Diagnostically consistent with JAIRO, MDD with anxious distress, and possible BPAD II given history of episodes convincing for hypomania. The patient is requiring psychiatric hospitalization for lack of safe disposition option which would cause significant increase in mood symptoms and risk of harm to self given mood lability. 10/28/21: agreeable to ongoing stay given worsening of mood today and lack of safe discharge disposition (1) Major depressive disorder, recurrent episode, severe with anxious distress: (2) JAIRO (generalized anxiety disorder): (3) Narcolepsy and cataplexy: (4) Bipolar 2 disorder: (5) Borderline personality disorder: 10/28/21: sw to engage supports around housing options, continue current meds and discharge planning. 10/27/21: Discontinued venlafaxine. Continue with medications. 10/26/21: Continue with medications. One more dose of venlafaxine ER 37.5 mg then discontinue. Motivational interviewing regarding adding daily structure, healthy habits, routines and ongoing safety planning. 10/25/21: Continue with sertraline, decrease venlafaxine to 37.5mg, increase clonidine to 0.1 mg qAM & 0.2 mg qhs 10/24/21: Continue with sertraline 50mg qd, c/w venlafaxine ER 75 mg 10/23/21: Increase sertraline to 50mg qd, decrease venlafaxine ER to 75mg. 10/22/21: Continue medications. Completing screening tools. Attempt to gather further collateral from his primary care provider and therapist tomorrow. 10/21/21: The patient was admitted to the [facility] ([facility] mental [facility] unit) on q15 min checks (behavioral with suicide precautions) for safety. The patient will participate in group, recreational, and milieu therapies and will be offered additional individual and family sessions as clinically appropriate. -Cross taper from venlafaxine to sertraline -Continue Lamictal, ambien, clonidine, armodafinil -MDQ and [place] screen Inventory Assets Strengths: motivated to get job again once feeling better, lots of friends, periods of extended stability in the past, outpatient therapist Needs: additional coping skills, housing, medication adjustment Risk Factors Assessment Male: Yes : Yes Do You Have Access To A Gun?: No Health Problems: Yes Mental Health Diagnoses: Yes Substance Use Disorders: No Previous Attempt: No Family History of Suicide: Yes Previous Psychiatric Hospitalization: Yes Hopelessness: Yes Smoker: Yes Protective Factors Assessment Responsible for Young Children: Yes (has 6 yo daughter) Employed: No (lost job in May/Jun) Stable Relationships: Yes Supportive Family: No Good Rapport with Provider: Yes Interval History Identifying Information ANA CASTANO is a 31-year-old man who is currently homeless, has a history of narcolepsy with cataplexy borderline personality disorder, and was admitted on 10/20/21 21:52 on a 201 voluntary commitment for worsening depression and SI with rehearsal behaviors and plan to hang himself. Chief Complaint "I want discharged, I'm just done". Review of Systems Sleep Information Total Hours of Sleep: 6.5 Meal Information Percent Meal Consumed - Breakfast: 100 Percent Meal Consumed - Lunch: 0 Percent Meal Consumed - Dinner: 75 Nutrition Comment: pt. allowed to sleep; meal dated, labeled and refrigerated Subjective Subjective Patient was seen & assessed and interval progress reviewed with nursing and social work. Patient remains in bed most of today, did take am meds late. Was declined for [facility] due to controlled substance medications and makes comments like above in the context of feeling hopeless about his housing options. Alludes to SI out of anger at staff for mixed messages, typical pattern during his stay to blame others for not doing enough for him. Physical Exam Psychiatric Orientation: alert Eye Contact: + poor eye contact Motor Behavior: no abnormal motor movements Speech: normal rate/rhythm/volume of speech Affect: + depressed affect and + irritable affect Mood: + irritable mood Thought Process: goal directed thought process Thought Content: reality based without delusions Suicidal Thoughts: denies suicidal plan; + reports suicidal thoughts (passive, provocative) Homicidal Thoughts: denies homicidal thoughts Hallucinations: no auditory hallucinations and no visual hallucinations Cognition: language grossly intact; + attention not intact (poor effort) Estimated Intelligence: consistent with education level Insight: + impaired insight Judgement: + limited judgement Vital Signs (Past 24 Hours) Last Vital Signs Temp 36.4 C L 10/28/21 06:52 Pulse 71 10/28/21 06:53 Resp 16 10/28/21 06:52 BP 111/76 10/28/21 06:53 Pulse Ox 96 10/20/21 21:01 Results & Data ([facility]) Current Inpatient Medications Current Inpatient Medications: Current Inpatient Medications Acetaminophen (Acetaminophen 325 Mg Tab) 650 mg PO Q4H PRN PRN Reason: Headache or Minor Fever Stop: 11/19/21 21:51 Al Hydrox/Mg Hydrox/Simethicone (Aluminum/Magnesium Susp 30 Ml Udc) 30 ml PO Q4H PRN PRN Reason: GI Upset Stop: 11/19/21 21:51 Bismuth Subsalicylate (Bismuth Subsalicylate Liqd 236 Ml) 15 ml PO PRN PRN PRN Reason: Loose Stool Stop: 11/19/21 21:51 Chlordiazepoxide HCl (Chlordiazepoxide Hcl 25 Mg Cap) 25 mg PO DAILY PRN PRN Reason: Anxiety Stop: 11/20/21 09:16 Last Admin: 10/27/21 11:22 Dose: 25 mg Documented by: Clonidine HCl (Clonidine Hcl 0.1 Mg Tab) 0.1 mg PO QAM [place] Stop: 11/25/21 08:59 Last Admin: 10/28/21 11:01 Dose: 0.1 mg Documented by: Clonidine HCl (Clonidine Hcl 0.1 Mg Tab) 0.2 mg PO HS [place] Stop: 11/24/21 21:59 Last Admin: 10/27/21 20:48 Dose: 0.2 mg Documented by: Hydroxyzine HCl (Hydroxyzine Hcl 25 Mg Tab) 50 mg PO HSZ PRN PRN Reason: Insomnia Stop: 11/19/21 21:51 Last Admin: 10/22/21 00:08 Dose: 50 mg Documented by: Hydroxyzine HCl (Hydroxyzine Hcl 25 Mg Tab) 25 mg PO Q4H PRN PRN Reason: Anxiety Stop: 11/19/21 21:51 Lamotrigine (Lamotrigine 100 Mg Tab) 100 mg PO BID [facility] Stop: 11/19/21 20:59 Last Admin: 10/28/21 11:01 Dose: 100 mg Documented by: Magnesium Hydroxide (Magnesium Hydroxide Susp 30 Ml Udc) 30 ml PO DAILY PRN PRN Reason: Constipation Stop: 11/19/21 21:51 Last Admin: 10/26/21 19:10 Dose: 30 ml Documented by: Miscellaneous (Remove Nicoderm Patch) 1 ea N/A DAILY@[id number] [facility] Stop: 11/21/21 08:58 Last Admin: 10/28/21 11:03 Dose: Not Given Documented by: Nicotine (Nicotine 21 Mg/24 Hr Tdsy) 21 mg TD QAM [facility] Stop: 11/21/21 08:59 Last Admin: 10/28/21 11:01 Dose: Not Given Documented by: Nicotine Polacrilex (Nicotine Polacrilex 2 Mg Gum) 1 piece MT PRN PRN PRN Reason: Nicotine craving Stop: 11/19/21 22:38 Last Admin: 10/27/21 20:08 Dose: 1 piece Documented by: Armodafinil - (Patient's Own Med) 1 ea PO DAILY [place] Stop: 11/20/21 08:59 Last Admin: 10/28/21 11:01 Dose: 1 ea Documented by: Sertraline HCl (Sertraline Hcl 50 Mg Tablet) 50 mg PO QAM [facility] Stop: 11/23/21 08:59 Last Admin: 10/28/21 11:02 Dose: 50 mg Documented by: Sodium Chloride (Sodium Chloride 0.65% Na Soln 45 Ml ([place])) 1 - 2 sprays NA PRN PRN PRN Reason: Nasal Dryness/Congestion Stop: 11/19/21 21:51 Zolpidem Tartrate (Zolpidem Tartrate 10 Mg Tab) 10 mg PO HS PRN PRN Reason: Sleep Stop: 11/19/21 22:33 Last Admin: 10/27/21 20:47 Dose: 10 mg Documented by: Mental Health & Subst Abuse Tx Psychiatrist Name of Psychiatrist: None- uses PCP for meds Therapist Name of Therapist: Myrio- Natali Barton Therapist's Date of Therapist Appointment: 11/07/21 Time of Therapist Appointment: 11am Therapy Appointment Comment: [phone] [place] [id number] Transportation Planning Technician Name of Transportation Planning Technician: Myrio Phone Number for Transportation Planning Technician: Time of Appointment with Transportation Planning Technician: Faxed referral on 10/27 - please follow up to schedule with a CM Case Management Appointment Comment: [phone] [place] [address] Post Discharge Appointments Primary Care Physician Name Of Family Doctor: [facility] - Dr. Kohli [facility] Date of Appointment with PCP: 11/07/21 Time of Appointment with PCP: 4:30pm Provider Appointment Comment: [address] [place] [address] Neurologist Name of Neurologist: [facility] Mike Rufus - Chaparrita Barraza PA-C Neurologist's Date of Appointment with Neurologist: 10/30/21 Time of Appointment with Neurologist: 1:00 PM Neurology Appointment Comment: [phone] [place] [address] Contact Information Discharge Discharge Address: [address] [place] [address] [address] [place] [address]
[2021-10-28] MEDS: NICOTINE POLACRILEX 2 MG GUM MT PRN (21:36)
[2021-10-28] MEDS: ZOLPIDEM TARTRATE 10 MG TAB PO PRN (21:36)
[2021-10-28] MEDS: chlordiazePOXIDE HCl 25 MG CAP PO PRN (23:44)
[2021-10-29] MEDS: cloNIDine HCL 0.1 MG TAB PO SCH (08:22)
[2021-10-29] MEDS: lamoTRIgine 100 MG TAB PO SCH (08:22)
[2021-10-29] MEDS: SERTRALINE HCL 50 MG TABLET PO SCH (08:22)
[2021-10-29] MEDS: NICOTINE 21 MG/24 HR TDSY TD SCH (08:25)
[2021-10-29] MEDS: ARMODAFINIL PO SCH (08:25)
[2021-10-29] MEDS: NICOTINE POLACRILEX 2 MG GUM MT PRN (09:04)
--- NOTE | 2021-10-29 09:43 | Discharge Summary ---
Date of Service October 29, 2021 History of Present Illness Prashanth presents with months of worsening depression and intensifying SI in the context of multiple psychosocial stressors including losing his job in June, lose of housing/now staying between friends homes, and loss of primary custody of his daughter in May. Since Saturday he had persistent active SI with intent with thoughts of hanging himself. He states on night he had "a breakdown" with SI and considering hanging himself, had tied a noose and due to heightened emotional state fell asleep, which often occurs due to his cataplexy, and then the next morning sought help from his friend. 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 He feels like he "stays stuck" because his anxiety will worsen and then he develops depression and he either "sinks into it" or "I start doing stupid impulsive stuff". He reports symptoms of depression including hopelessness, helplessness, poor sleep, low self-worth, low self-esteem, low motivation, low energy, indecisiveness, low appetite and severe anxiety including ruminative thoughts, chest tightness and panic attacks every 2-3 days. He continues to have passive SI with thoughts of "I"m ok with dying" but feels much safer now being in the hospital. Has been on Effexor since about 2012 and it was last increased "years ago". Ambien works well for him "most of the time but not when my anxiety is off the charts". Lamictal since 2018 because before narcolepsy diagnosis there had been concern for seizures and then he found it helped with his mood stabilization. He's also prescribed librium for anxiety and he uses it now and then about once every few weeks for severe panic attacks. Psychiatric ROS notable for: no psychosis; hx possible [place] with periods of decreased sleep/appetite/hypersexuality/impulsive behavior like stealing things or recently hiding in friend's basement or driving fast, last experienced this around [place] time after being evicted and had the "I'm going to have to hustle hard mentality" that lasted about 4 days, longest episode of elevated mood was 4 days and never required hospitalization; no hx eating disorder; no OCD. Physical Exam Psychiatric See admission H&P and DOD assessment. Vital Signs (Past 24 Hours) Last Vital Signs Temp 36.4 C L 10/29/21 09:40 Pulse 90 10/29/21 09:40 Resp 16 10/29/21 09:40 BP 116/76 10/29/21 09:40 Pulse Ox 96 10/29/21 09:40 Principal Diagnosis major depressive disorder Psychiatric Data See daily stay summary. In short, safety was maintained. Medication changes included increase in hs clonidine to improve sleep and cross taper of Effexor XR to Zoloft and they tolerated this well. He was less cooperative on 10/28/21 as upset re: lack of long term disposition. His reports of overwhelm and hopeless statements yesterday, in that context, are consistent with "all or nothing thinking" related to his personality disorder diagnosis. Homelessness remains a stressor for patient but his friend is willing to pay for a hotel until he can have long term placement in [facility] [place] (anticipated as early as tomorrow); he maintains a sense of entitlement about services and superiority to staff and MD on unit. A safety plan was completed prior to discharge. Confirmed availability of his medication and hs clonidine and Zoloft were sent to his identified pharmacy. He is aware that control substance rx's are not provided on discharge. Reviewed that our treatment philosophy is to minimize/taper controlled substances in patients and that would recommend regular consideration for taper by his outpatient provider. His regimen of controlled substances was continued here to allow for focus on depression and other medication changes. Factors that could be mitigated on an inpatient basis were mitigated prior to discharge and ongoing outpatient treatment is the preferred for personality disorders. Day of Discharge Assessment Today the patient voices readiness for discharge. They note improvement in mood and deny thoughts to harm self or others. Thoughts remain organized and they are improved from admission. There is no evidence of psychosis. They agree to take mediations as prescribed and keep follow-up appointments. They are stable for discharge to outpatient level of care. Transition of Care Transition Of Care Record: was reviewed with the patient Advance Directives Advance Directives Information Provided: Yes Advance Directives: No Mental Health Advance Directive: No Advance Directives on File: No Living Will: No Power of Padder: No Advance Directives Reason:: Declines as Mental Health Visit. Risk Factors Assessment Male: Yes : Yes Do You Have Access To A Gun?: No Health Problems: Yes Mental Health Diagnoses: Yes Substance Use Disorders: No Previous Attempt: No Family History of Suicide: Yes Previous Psychiatric Hospitalization: Yes Hopelessness: Yes Smoker: Yes Protective Factors Assessment Responsible for Young Children: Yes (has 6 yo daughter) Employed: No (lost job in May/Jun) Stable Relationships: Yes Supportive Family: No Good Rapport with Provider: Yes Tobacco Cessation at Discharge Tobacco Cessation Medication Prescribed at Discharge: Offered & Pt Refused Total Time Total Time Spent: Greater Than 30 Minutes Discharge Data Lab Results 10/20/21 10/20/21 10/20/21 18:06 18:06 18:06 WBC RBC Hgb Hct MCV MCH MCHC RDW Std Deviation RDW Coeff of Giana Plt Count MPV Immature Gran % (Auto) Neut % (Auto) Lymph % (Auto) [place] % (Auto) Eos % (Auto) Baso % (Auto) Neut # (Auto) Lymph # (Auto) [place] # (Auto) Eos # (Auto) Baso # (Auto) Immature Gran # (Auto) Sodium Potassium Chloride Carbon Dioxide Anion Gap BUN Creatinine Est Cr Clr Drug Dosing Est GFR ( Amer) Est GFR (Non-Af Amer) BUN/Creatinine Ratio Glucose Calcium Total Bilirubin AST ALT Alkaline Phosphatase Troponin I Total Protein Albumin Globulin Albumin/Globulin Ratio TSH Urine Color Yellow Urine Appearance Clear Urine pH 5.5 Ur Specific [place] 1.011 Urine Protein Negative Urine Glucose (UA) Negative Urine Ketones 2+ H Urine Blood Negative Urine Nitrite Negative Urine Bilirubin Negative Urine Urobilinogen Negative Ur Leukocyte Esterase Negative Salicylates Urine Opiates Screen Neg Ur Methadone, Qual Neg Acetaminophen Urine Barbiturates Neg Ur Phencyclidine (PCP) Neg U Amphetamin/Meth Scrn Neg MDMA (Ecstasy) Screen Neg U Benzodiazepines Scrn Neg Ur Cocaine Metabolite Neg U Marijuana (THC) Screen Pos H U Marijuana THC Carboxy 1591 H Drug Screen Comment SEE NOTE Ethyl Alcohol mg/dL SARS-CoV-2, RNA, NAAT 10/20/21 10/20/21 10/20/21 18:21 18:21 18:21 WBC RBC Hgb Hct MCV MCH MCHC RDW Std Deviation RDW Coeff of Giana Plt Count MPV Immature Gran % (Auto) Neut % (Auto) Lymph % (Auto) [place] % (Auto) Eos % (Auto) Baso % (Auto) Neut # (Auto) Lymph # (Auto) [place] # (Auto) Eos # (Auto) Baso # (Auto) Immature Gran # (Auto) Sodium 137 Potassium 3.9 Chloride 104 Carbon Dioxide 24 Anion Gap 9 BUN 9 Creatinine 0.95 Est Cr Clr Drug Dosing 156.3 Est GFR ( Amer) 123.1 Est GFR (Non-Af Amer) 106.2 BUN/Creatinine Ratio 9.5 L Glucose 90 Calcium 10.1 Total Bilirubin 0.7 AST 22 ALT 22 Alkaline Phosphatase 90 Troponin I Total Protein 7.6 Albumin 4.8 Globulin 2.8 Albumin/Globulin Ratio 1.7 TSH 1.550 Urine Color Urine Appearance Urine pH Ur Specific [place] Urine Protein Urine Glucose (UA) Urine Ketones Urine Blood Urine Nitrite Urine Bilirubin Urine Urobilinogen Ur Leukocyte Esterase Salicylates < 3.0 L Urine Opiates Screen Ur Methadone, Qual Acetaminophen < 3 L Urine Barbiturates Ur Phencyclidine (PCP) U Amphetamin/Meth Scrn MDMA (Ecstasy) Screen U Benzodiazepines Scrn Ur Cocaine Metabolite U Marijuana (THC) Screen U Marijuana THC Carboxy Drug Screen Comment Ethyl Alcohol mg/dL SARS-CoV-2, RNA, NAAT 10/20/21 10/20/21 10/20/21 18:21 18:21 19:13 WBC RBC Hgb Hct MCV MCH MCHC RDW Std Deviation RDW Coeff of Giana Plt Count MPV Immature Gran % (Auto) Neut % (Auto) Lymph % (Auto) [place] % (Auto) Eos % (Auto) Baso % (Auto) Neut # (Auto) Lymph # (Auto) [place] # (Auto) Eos # (Auto) Baso # (Auto) Immature Gran # (Auto) Sodium Potassium Chloride Carbon Dioxide Anion Gap BUN Creatinine Est Cr Clr Drug Dosing Est GFR ( Amer) Est GFR (Non-Af Amer) BUN/Creatinine Ratio Glucose Calcium Total Bilirubin AST ALT Alkaline Phosphatase Troponin I < 0.03 Total Protein Albumin Globulin Albumin/Globulin Ratio TSH Urine Color Urine Appearance Urine pH Ur Specific [place] Urine Protein Urine Glucose (UA) Urine Ketones Urine Blood Urine Nitrite Urine Bilirubin Urine Urobilinogen Ur Leukocyte Esterase Salicylates Urine Opiates Screen Ur Methadone, Qual Acetaminophen Urine Barbiturates Ur Phencyclidine (PCP) U Amphetamin/Meth Scrn MDMA (Ecstasy) Screen U Benzodiazepines Scrn Ur Cocaine Metabolite U Marijuana (THC) Screen U Marijuana THC Carboxy Drug Screen Comment Ethyl Alcohol mg/dL < 10.0 SARS-CoV-2, RNA, NAAT NEGATIVE 10/20/21 19:57 WBC 5.99 RBC 5.30 Hgb 16.7 Hct 46.9 MCV 88.5 MCH 31.5 MCHC 35.6 RDW Std Deviation 42.5 RDW Coeff of Giana 13.1 Plt Count 264 MPV 10.7 H Immature Gran % (Auto) 0.0 Neut % (Auto) 74.3 Lymph % (Auto) 21.7 [place] % (Auto) 3.5 Eos % (Auto) 0.2 Baso % (Auto) 0.3 Neut # (Auto) 4.45 Lymph # (Auto) 1.30 [place] # (Auto) 0.21 Eos # (Auto) 0.01 Baso # (Auto) 0.02 Immature Gran # (Auto) 0.00 Sodium Potassium Chloride Carbon Dioxide Anion Gap BUN Creatinine Est Cr Clr Drug Dosing Est GFR ( Amer) Est GFR (Non-Af Amer) BUN/Creatinine Ratio Glucose Calcium Total Bilirubin AST ALT Alkaline Phosphatase Troponin I Total Protein Albumin Globulin Albumin/Globulin Ratio TSH Urine Color Urine Appearance Urine pH Ur Specific [place] Urine Protein Urine Glucose (UA) Urine Ketones Urine Blood Urine Nitrite Urine Bilirubin Urine Urobilinogen Ur Leukocyte Esterase Salicylates Urine Opiates Screen Ur Methadone, Qual Acetaminophen Urine Barbiturates Ur Phencyclidine (PCP) U Amphetamin/Meth Scrn MDMA (Ecstasy) Screen U Benzodiazepines Scrn Ur Cocaine Metabolite U Marijuana (THC) Screen U Marijuana THC Carboxy Drug Screen Comment Ethyl Alcohol mg/dL SARS-CoV-2, RNA, NAAT Hospital Course (1) Major depressive disorder, recurrent episode, severe with anxious distress: (2) JAIRO (generalized anxiety disorder): (3) Narcolepsy and cataplexy: (4) Bipolar 2 disorder: (5) Borderline personality disorder: 10/28/21: sw to engage supports around housing options, continue current meds and discharge planning. 10/27/21: Discontinued venlafaxine. Continue with medications. 10/26/21: Continue with medications. One more dose of venlafaxine ER 37.5 mg then discontinue. Motivational interviewing regarding adding daily structure, healthy habits, routines and ongoing safety planning. 10/25/21: Continue with sertraline, decrease venlafaxine to 37.5mg, increase clonidine to 0.1 mg qAM & 0.2 mg qhs 10/24/21: Continue with sertraline 50mg qd, c/w venlafaxine ER 75 mg 10/23/21: Increase sertraline to 50mg qd, decrease venlafaxine ER to 75mg. 10/22/21: Continue medications. Completing screening tools. Attempt to gather further collateral from his primary care provider and therapist tomorrow. 10/21/21: The patient was admitted to the [facility] ([facility]) on q15 min checks (behavioral with suicide precautions) for safety. The patient will participate in group, recreational, and milieu therapies and will be offered additional individual and family sessions as clinically appropriate. -Cross taper from venlafaxine to sertraline -Continue Lamictal, ambien, clonidine, armodafinil -MDQ and [place] screen Mental Health & Subst Abuse Tx Psychiatrist Name of Psychiatrist: None- uses PCP for meds Therapist Name of Therapist: Mike Naylor- Natali Barton Therapist's Date of Therapist Appointment: 11/07/21 Time of Therapist Appointment: 11am Therapy Appointment Comment: [address] [place] [address] [employer] Name of [employer]: Mike Naylor Phone Number for [employer]: Time of Appointment with [employer]: Faxed referral on 10/27 - please follow up to schedule with a CM Case Management Appointment Comment: [address] [place] [address] Post Discharge Appointments Primary Care Physician Name Of Family Doctor: Kait Hooper - Dr. Kohli [facility] Date of Appointment with PCP: 11/07/21 Time of Appointment with PCP: 4:30pm Provider Appointment Comment: [address] [place] [address] Neurologist Name of Neurologist: [facility] Mike Barraza PA-C Neurologist's Date of Appointment with Neurologist: 10/30/21 Time of Appointment with Neurologist: 1:00 PM Neurology Appointment Comment: [address] [place] [address] Smoking Cessation Counseling Tobacco Cessation Medication Prescribed at Discharge: Offered & Pt Refused Contact Information Discharge Discharge Address: [address] [place] [address] Discharge Plan Discharge Items Patient Disposition: Home - Self-Care Reason For Visit: MDD/SUICIDAL IDEATION Discharge Diagnosis: major depressive disorder Activity: Resume your previous activity Non-emergency contact: Neurologist, Psychiatrist and Therapist Call non-emergency contact if: you have any medication questions and your symptoms worsen Follow-up/Referrals: PCP,NO [Primary Care Provider] - Diet: Regular Addtl Attending Provider Instructions: SPECIAL CARE INSTRUCTIONS: 1. Follow through with your scheduled aftercare appointments. If unable to keep an appointment, please call to reschedule. 2. Take your medication only as prescribed. Medication should not be changed or stopped without the approval of your doctor. In the event of worsening symptoms or concerns about side effects, contact your doctor immediately. 3. Utilize new healthy coping skills, anger management skills, and stress management skills learned during your hospitalization. Journal feelings and process them with a support person. Identify stressors or situations that may result in relapse, deterioration or inappropriate behaviors and develop a plan to deal with those issues. 4. If your coping skills are ineffective and you are in crisis, contact your outpatient providers for direction. If unable to reach your providers, please call the [facility] CRISIS LINE AT , go to the [facility] walk-in center at [address] [place] [address], [facility], or go to the closest Emergency Room. 5. Avoid alcohol and un-prescribed drugs. 6. You have been provided with the Mental Health Advance Directives Pamphlet for your review. 7. Your condition is stable for discharge to outpatient level of care, but recovery is an ongoing process. Ifthoughts to harm yourself or others return, follow the safety plan developed during your stay. Planning for a safe return home includes securing weapons. Our treatment team recommends weaponsbe removed from the home until your outpatient provider reassesses your progress. In rare cases where the items themselvescannot be removed, guns and ammunitionshould be secured separatelyand keys stored by a reliable personoutside of the home. If you were admitted on an involuntary commitment, the police or other legal authorities may be involved in this process. AFTERCARE APPOINTMENTS: * Please call your insurance company prior to your scheduled appointment to confirm your aftercare providers are covered. Take your insurance information to your appointments. WHO TO CALL AND WHEN: Medical Emergencies: For questions or emergencies related to your hospital stay, please contact the Inpatient Behavioral Health Unit at [phone]. A tutoring clinician is on-call 11/03 for the Behavioral Health Unit for emerg encies At any time you feel your situation is an emergency, you may also call 911 immediately. Pending Studies at Discharge: No Stand-Alone Forms: My [facility] O-CODES, Smoking Cessation Medications and DC Order Prescriptions: New clonidine HCl 0.2 mg tablet 0.2 mg PO HS 15 Days Qty: 15 RF: 0 sertraline 50 mg Tablet 50 mg PO QAM 15 Days Qty: 15 RF: 0 Continued zolpidem [Ambien] 10 mg tablet 10 mg PO DAILY RF: 0 lamotrigine [Lamictal] 100 mg tablet 100 mg PO BID RF: 0 armodafinil [Nuvigil] 250 mg tablet 250 mg PO DAILY RF: 0 chlordiazepoxide HCl 25 mg Capsule 25 mg PO DAILY RF: 0 sildenafil 25 mg tablet 25 mg PO DAILY PRN (Reason: as directed) RF: 0 Changed clonidine HCl 0.1 mg tablet 0.1 mg PO DAILY Qty: 0 RF: 0 Discontinued venlafaxine [Effexor XR] 150 mg capsule,extended release 24hr 150 mg PO DAILY RF: 0 venlafaxine [Effexor XR] 75 mg capsule,extended release 24hr 75 mg PO DAILY RF: 0 Discharge Orders: Discharge Order (Routine); Ordered 10/29/21 Ordered By: Yumiko Durbin Admission Data Admit Date/Time: 10/20/21 21:52 Attending Provider: Yumiko Durbin Admit Provider: Nataly Jacobo Primary Care Provider: PCP,NO Other Interventions: Discharge Summary Assessment (RN) Last Done: 10/29/21 09:40 PSY Interdisciplinary Discharge Planning Last Done: 10/29/21 09:43 Coding Level of Care Code 42241 D/C day mgmt > 30 min Diagnoses Major depressive disorder, recurrent episode, severe with anxious distress F33.2 JAIRO (generalized anxiety disorder) F41.1 Narcolepsy and cataplexy G47.411 Bipolar 2 disorder F31.81 Borderline personality disorder F60.3
== END 2021-10-29 10:25 | disposition home or self-care (01) | DRG 885 ==
LOC: ED 17:48 → SUATTDRO 21:52 → 3S 21:52

== ENCOUNTER 2025-05-14 14:51 | Inpatient (IN) ==
[2025-05-14 15:51] LABS: Hematocrit (blood only) 41.7 % (42.0-52.0); Hemoglobin 14.2 g/dl (14.0-18.0); Immature Granulocytes # (auto) 0.00 K/uL (0.01-0.20); Immature Granulocytes % (auto) 0.0 %; Mean Corpuscular Hemoglobin 29.5 pg (25.0-34.0); Mean Corpuscular Volume 86.7 fL (80.0-100.0); Platelet Count 225 K/uL (130-400); RDW Standard Deviation 40.5 fL (36.4-46.3); Red Blood Count 4.81 M/uL (4.70-6.10); White Blood Count 5.38 K/ul (4.8-10.8)
[2025-05-14 15:53] LABS: Appearance Urine Clear (Clear); Glucose Urine UA Negative (Negative)
--- NOTE | 2025-05-14 16:00 | Emergency Department Note ---
Impression & Plan Alcohol withdrawal, Agitation, Suicidal thoughts ED Provider Note NAME: ANA CASTANO AGE: 35 SEX: M : 1990 ARRIVES VIA: Walk-In INFORMANT: [Patient][] ED PROVIDER(S): [Terry Arzola MD] CHIEF COMPLAINT: Mental health evaluation HISTORY OF PRESENT ILLNESS: The patient is a 35-year-old male who states that he is feeling suicidal. He has thought about different ways to harm himself. He feels he is suicidal because of his withdrawal symptoms. He is withdrawing from kratom. His last kratom use was about 24 hours ago. With his withdrawal, he becomes agitated, anxious, sweaty, nauseated. The patient states that he begins having suicidal thoughts. He has to take kratom again to calm his symptoms. The patient is here asking for help. He has tried to wean himself on his own but has been unsuccessful. The patient has a history of previous suicidality. PMHx/PSHx/Social Hx: See Below PHYSICAL EXAM: GENERAL: Patient is in no acute distress. HEENT: No acute trauma, normocephalic atraumatic, mucous membranes moist, no nasal congestion. NECK: No stridor, no adenopathy, no meningismus, trachea is midline. LUNGS: Clear to auscultation bilaterally, no wheeze, no rhonchi, breath sounds equal. HEART: Without murmurs gallops or rubs, regular rate and rhythm. ABDOMEN: Soft, nontender, no peritonitis. EXTREMITIES: No cyanosis, full range of motion of all the joints without pain or difficulty. NEUROLOGIC: Oriented x 3, no acute motor or sensory deficits, no focal weakness. SKIN: No jaundice, no diaphoresis. Psychiatric: Cooperative, slightly anxious and agitated, voluntary. DIFFERENTIAL DIAGNOSIS: Withdrawal, electrolyte imbalance, dehydration, suicidality, psychosis, among others. EMERGENCY DEPARTMENT PROCEDURES: MEDICAL DECISION MAKING: There is no leukocytosis or concerning anemia. There is a normal platelet count. No renal failure or significant electrolyte abnormality. No concerning liver enzyme elevation. The patient appears to be in a euthyroid state. Urinalysis does not show infection. Aspirin, Tylenol and alcohol levels were undetectable. Urine tox shows marijuana. ECG showed a sinus rhythm, no QTc prolongation, no dysrhythmia. On exam, the patient did admit to some suicidal thoughts without any true plan. He was a bit agitated and complained of feeling on edge. He was cooperative. He was voluntary. The patient appears to be suffering from withdrawal from his kratom addiction. He has not had kratom in about 24 hours. Patient was given IV saline, IV Phenergan, IV Zofran, IV Ativan. The patient does feel improved after the above medications. He was seen by psychiatry case management. The patient is not in need of emergent psychiatric inpatient hospitalization, his issue is really withdrawal. The withdrawal has led to his suicidal thoughts. The patient will be admitted medically. He can be seen by psychiatry as a consult inpatient. I spoke with the patient and case management, the on-call hospitalist was consulted. Prior/Outside records/notes reviewed: None ECG per my interpretation: Indication was withdrawal. The ECG shows a normal sinus rhythm with a rate of 67. There is no ST elevation, no PVCs. The QTc is 416. Continuous Cardiac Monitoring per my interpretation: An order was placed for continuous cardiac monitoring. The monitor shows a rate of 93 with normal sinus rhythm. Imaging/x-ray results per my interpretation: Chronic Medical/Social conditions affecting care: None Care/Management discussed with: Psychiatry case management. The on-call hospitalist. Level of care consideration(s): After review of the information above and other included data: --I believe the patient requires escalation of care to admission DISPOSITION: Admission Past Med/Surg History Problem List (Updated 05/14/25 @ 22:53 by Terry Arzola MD) Suicidal thoughts (Acute) Agitation (Acute) Alcohol withdrawal (Acute) Withdrawal from recreational drug Major depressive disorder, recurrent episode, severe with anxious distress HTN (hypertension) Narcolepsy and cataplexy Borderline personality disorder (Acute) Medical History Bipolar 2 disorder JAIRO (generalized anxiety disorder) Depression with suicidal ideation Social History Smoking Status: Current every day smoker Tobacco Type: E-cigarettes / Vaping Preferred Language: Surinamese Communication Ability: Effective Chicken Tender Required: No Beliefs That Will Affect Care: None Feels Safe at Home: Yes Assistive Devices: Contacts and Glasses Allergies Allergies Allergy/AdvReac Type Severity Reaction Status Date / Time No Known Allergies Allergy Unverified 10/20/21 22:57 Home Meds Home Medications Medication Instructions Recorded Confirmed armodafinil 250 mg tablet (Nuvigil) 250 mg PO DAILY 10/20/21 10/20/21 chlordiazepoxide HCl 25 mg capsule 25 mg PO DAILY 10/20/21 10/23/21 lamotrigine 100 mg tablet 100 mg PO BID 10/20/21 05/14/25 (Lamictal) zolpidem 10 mg tablet (Ambien) 5 mg PO DAILY 10/20/21 05/14/25 sildenafil 25 mg tablet 25 mg PO DAILY PRN as directed 10/23/21 10/23/21 lisdexamfetamine 30 mg capsule 30 mg PO DAILY 05/14/25 05/14/25 (Vyvanse) sertraline 100 mg tablet (Zoloft) 150 mg PO DAILY 05/14/25 05/14/25 Previous Rx's Medication Instructions Recorded clonidine HCl 0.1 mg tablet 0.1 mg PO DAILY #0 tabs 10/29/21 Results & Data (ED) Vital Signs Vital Signs - 24 hr 05/14/25 15:21 05/14/25 16:51 05/14/25 17:01 Temperature 36.7 C Temperature Source Temporal Artery Scan Pulse Rate 93 H 85 Pulse Rate [Apical] 68 Pulse Rhythm [Apical] Regular Pulse Strength [Apical] Normal Respiratory Rate 17 20 19 Respiratory Effort / Characteristics Non-Labored Spontaneous Respiratory Depth Normal Respiratory Pattern Regular Blood Pressure 146/95 H 112/57 L Blood Pressure [Right Arm] 135/80 Blood Pressure Mean 112 71 Blood Pressure Mean [Right Arm] 98 Blood Pressure Position [Right Arm] Lying Pulse Oximetry 98 94 93 Oxygen Delivery Method Room Air Room Air Room Air Sepsis Recent Fever Within 48 Hours No Sepsis New/Unexplained Change in Mental Status N/A Sepsis Action Taken by Nursing No Action Required Home Medications Current Medication List: was personally reviewed by me Laboratory Data Attestation: I reviewed the patient's lab results. 05/14/25 15:36 05/14/25 15:36 Lab Results 05/14/25 Range/Units 15:36 WBC 5.38 (4.8-10.8) K/ul RBC 4.81 (4.70-6.10) M/uL Hgb 14.2 (14.0-18.0) g/dl Hct 41.7 L (42.0-52.0) % MCV 86.7 (80.0-100.0) fL MCH 29.5 (25.0-34.0) pg MCHC 34.1 (32.0-36.0) g/dL RDW Std Deviation 40.5 (36.4-46.3) fL RDW Coeff of Gain[place] 12.9 (11.5-14.5) % Plt Count 225 (130-400) K/uL MPV 10.6 (9.4-12.4) fL Immature Gran % (Auto) 0.0 % Neut % (Auto) 69.8 % Lymph % (Auto) 24.0 % [place] % (Auto) 4.8 % Eos % (Auto) 0.7 % Baso % (Auto) 0.7 % Neut # (Auto) 3.75 (1.40-6.50) K/uL Lymph # (Auto) 1.29 (1.20-3.40) K/uL [place] # (Auto) 0.26 (0.11-0.59) K/uL Eos # (Auto) 0.04 (0.00-0.50) K/uL Baso # (Auto) 0.04 (0.00-0.20) K/uL Immature Gran # (Auto) 0.00 L (0.01-0.20) K/uL Sodium 138 (136-145) mmol/L Potassium 4.4 (3.5-5.1) mmol/L Chloride 105 (98-107) mmol/L Carbon Dioxide 27 (21-32) mmol/L Anion Gap 6 (3-11) BUN 12 (6-23) mg/dl Creatinine 1.06 (0.6-1.4) mg/dl Est Cr Clr Drug Dosing 131.5 ml/min eGFR 93.86 BUN/Creatinine Ratio 11.3 (10-20) Glucose 96 (70-99(Fasting)) mg/dl Calcium 9.3 (8.6-10.3) mg/dl Total Bilirubin 0.7 (0.2-1.0) mg/dl AST 21 (13-39) U/L ALT 14 (7-52) U/L Alkaline Phosphatase 73 (34-104) U/L Total Protein 7.3 (6.0-8.3) gm/dl Albumin 4.8 (3.4-5.0) gm/dl Globulin 2.5 (2.5-4.0) gm/dl Albumin/Globulin Ratio 1.9 (0.9-2) TSH 0.607 (0.300-4.500) uIu/ml Urine Color Yellow Urine Appearance Clear (Clear) Urine pH 8.5 H (4.5-7.5) Ur Specific [place] 1.012 (1.000-1.030) Urine Protein Negative (Negative) Urine Glucose (UA) Negative (Negative) Urine Ketones Negative (Negative) Urine Blood Negative (Negative) Urine Nitrite Negative (Negative) Urine Bilirubin Negative (Negative) Urine Urobilinogen Negative (Negative) Ur Leukocyte Esterase Negative (Negative) Urine Comment Salicylates < 3.0 L (3.0-30) mg/dl Urine Opiates Screen Neg (Neg) Ur Methadone, Qual Neg (Neg) Urine Fentanyl Screen Neg (Neg) Acetaminophen < 3 L (10-30) ug/ml Urine Barbiturates Neg (Neg) Ur Phencyclidine (PCP) Neg (Neg) U Amphetamin/Meth Scrn Neg (Neg) MDMA (Ecstasy) Screen Neg (Neg) U Benzodiazepines Scrn Neg (Neg) Ur Cocaine Metabolite Neg (Neg) U Marijuana (THC) Screen Pos H (Neg) Ethyl Alcohol mg/dL < 10.0 (<10.0) mg/dl Administered Medications Clonidine HCl (Clonidine Hcl 0.1 Mg Tab) 0.2 mg PO [facility] Stop: 06/13/25 20:59 Last Admin: 05/14/25 20:25 Dose: 0.2 mg Documented By: YELITZA Lamotrigine (Lamotrigine 100 Mg Tab) 100 mg PO BID [facility]; Protocol Stop: 06/13/25 20:59 Last Admin: 05/14/25 20:25 Dose: 100 mg Documented By: YELITZA Miscellaneous (Vyvanse ~ Order Awaiting Action) 1 each N/A [facility] Stop: 06/13/25 18:29 Last Admin: 05/14/25 19:08 Dose: Not Given Documented By: YELITZA Zolpidem Tartrate (Zolpidem Tartrate 5 Mg Tab) 5 mg PO [facility] Stop: 06/13/25 20:59 Last Admin: 05/14/25 20:25 Dose: 5 mg Documented By: YELITZA Discontinued Medications Clonidine HCl (Clonidine Hcl 0.1 Mg Tab) 0.2 mg PO Q6H PRN PRN Reason: Anxiety/Agitation Stop: 06/13/25 18:11 Last Admin: 05/14/25 18:38 Dose: 0.2 mg Documented By: desirae Sodium Chloride (Nss) 1,000 mls @ 999 mls/hr IV .Q1H1M ONE Stop: 05/14/25 16:53 Last Infusion: 05/14/25 17:20 Dose: Infused Documented By: desirae Admin: 05/14/25 16:10 Dose: 999 mls/hr Documented By: desirae Promethazine HCl (Phenergan) 12.5 mg in 50.5 mls @ 202 mls/hr IV NOW STA Stop: 05/14/25 17:45 Last Infusion: 05/14/25 17:56 Dose: Infused Documented By: desirae Admin: 05/14/25 17:40 Dose: 202 mls/hr Documented By: desirae Lorazepam (Lorazepam 1 Mg/1 Ml Syr Ed Inj Use) 2 mg IV ONE STA Stop: 05/14/25 15:54 Last Admin: 05/14/25 16:11 Dose: 2 mg Documented By: desirae Lorazepam (Lorazepam 2 Mg/1 Ml Vial) 0.5 mg IV NOW STA Stop: 05/14/25 19:27 Last Admin: 05/14/25 19:41 Dose: 0.5 mg Documented By: YELITZA Lorazepam (Lorazepam 2 Mg/1 Ml Vial) 0.5 mg IV NOW STA Stop: 05/14/25 21:35 Last Admin: 05/14/25 21:56 Dose: 0.5 mg Documented By: LEO Ondansetron HCl (Ondansetron Inj 2 Mg/Ml 2 Ml Vial) 4 mg IV NOW STA Stop: 05/14/25 15:54 Last Admin: 05/14/25 16:11 Dose: 4 mg Documented By: desirae Discharge Plan Visit Data Chief Complaint: Mental Health Evaluation Stated Complaint: MENTAL HEALTH CRISIS ED Provider: Terry Arzola Discharge Problem: Alcohol withdrawal, Agitation, Suicidal thoughts Patient Disposition: Admitted As Inpatient Condition: Fair Discharge Instructions Interventions: ED Discharge Assessment Last Done: 05/14/25 19:18 Discharge Problem: Alcohol withdrawal Qualifiers: Complication of substance-induced condition: with unspecified complication Q ualified Code(s): F10.939 - Alcohol use, unspecified with withdrawal, unspecified
[2025-05-14 16:10] LABS: Alanine Aminotransferase 14.0 U/L (7-52); Albumin Globulin Ratio 1.9 (0.9-2); Albumin Level 4.8 gm/dl (3.4-5.0); Alkaline Phosphatase 73.0 U/L (34-104); Anion Gap 6.0 (3-11); Bilirubin,Total 0.7 mg/dl (0.2-1.0); Blood Urea Nitrogen 12.0 mg/dl (6-23); Calcium 9.3 mg/dl (8.6-10.3); Carbon Dioxide 27.0 mmol/L (21-32); Chloride 105.0 mmol/L (98-107); Creatinine Clr Calc Pharmacy 131.5 ml/min; Globulin 2.5 gm/dl (2.5-4.0); Glucose 96.0 mg/dl (70-99(Fasting)); Potassium 4.4 mmol/L (3.5-5.1); Sodium 138.0 mmol/L (136-145); Total Protein 7.3 gm/dl (6.0-8.3)
[2025-05-14] MEDS: SODIUM CHLORIDE 0.9% 1,000 ML IV ONE (16:10)
[2025-05-14] MEDS: LORazepam 1 MG/1 ML SYR ED Inj Use IV STA (16:11)
[2025-05-14] MEDS: ONDANSETRON INJ 2 MG/ML 2 ML VIAL IV STA (16:11)
[2025-05-14 16:15] LABS: Acetaminophen < 3 ug/ml (10-30); Salicylate < 3.0 mg/dl (3.0-30)
[2025-05-14 16:25] LABS: Thyroid Stimulating Hormone 0.607 uIu/ml (0.300-4.500)
[2025-05-14 17:01] LABS: Amphetamines+Metham, Urine Neg (Neg); MDMA (Ecstacy), Urine Neg (Neg); Marijuana, Urine Pos (Neg)
[2025-05-14] MEDS: PROMETHAZINE 12.5 MG/50.5 ML BAG IV STA (17:40)
--- NOTE | 2025-05-14 18:13 | History & Physical Report ---
Date of Service May 14, 2025 Assessment & Plan (1) Major depressive disorder, recurrent episode, severe with anxious distress: (2) HTN (hypertension): (3) Narcolepsy and cataplexy: (4) Borderline personality disorder: (5) Withdrawal from recreational drug: (6) Bipolar 2 disorder: (7) Depression with suicidal ideation: Plan The patient is a 35-year-old male who presents to the ED on 05/14/2025 with complaints of kratom withdrawal including nausea/vomiting/diarrhea/paranoia and suicidal thoughts Kratom withdrawal Suicidal thoughts Reported last using 24 hours ago, interested in psychiatric help Denies any suicidal plan, reports nausea/vomiting/diarrhea and paranoia Will utilize as needed clonidine for withdrawal symptoms Otherwise, symptomatic care with Zofran Psych consult, will remain on one-to-one until evaluated by psych Hx personality disorder: Continue Lamictal Hx ADHD: Continue Vyvanse Hx anxiety/depression: Continue sertraline a total of 45 minutes were spent on chart review/reviewing diagnostic data/facilitating plan of care/discussion with consultants Full code DVT prophylaxis SCDs History of Present Illness Chief Complaint: Kratom withdrawal, suicidal thoughts Primary Care Provider: Boyd Nunes DO The patient is a 35-year-old male with a past medical history of borderline personality disorder, major depression, HTN, opioid abuse, kratom abuse who presents to the ED on 05/14/2025 with complaints of kratom withdrawal. Patient reports using a specific kratom powder for about 2 years with no issues. About a year ago, he changed to a different strain and reported that the strain was much stronger and he felt it was hard to get off. He reported being clean for 2 months and relapsed 2 weeks ago after he was unknowingly given a tablet of kratom that he believed was a vitamin by his coworker. The patient reports trying to stop over the past 2 weeks and struggling. The patient would like to get help with his mental health and has been trying to get him to see a psychiatrist but has had an issue getting an appointment. He reports his withdrawal symptoms are nausea/vomiting/diarrhea and paranoia and anxiety. He endorsed suicidal thoughts that he contributes to the panic that comes along with withdrawing and anxiety of trying to stop using the kratom. He denies having a plan. He does report he had a suicide attempt in 2014. He plans to use a gun to take his life but a police booking officer pulled up to the car. He otherwise reports compliance with home medications. He also reports using a THC vape. Denies any other drug use Denies any fever/chills/chest pain/shortness of breath. On arrival to the ED, labs fairly unremarkable The patient will be admitted for further management of kratom withdrawal Allergies Allergy/AdvReac Type Severity Reaction Status Date / Time No Known Allergies Allergy Unverified 10/20/21 22:57 Home Medications Medication Instructions Recorded Confirmed Type armodafinil 250 mg tablet (Nuvigil) 250 mg PO DAILY 10/20/21 10/20/21 History chlordiazepoxide HCl 25 mg capsule 25 mg PO DAILY 10/20/21 10/23/21 History lamotrigine 100 mg tablet 100 mg PO BID 10/20/21 05/14/25 History (Lamictal) zolpidem 10 mg tablet (Ambien) 5 mg PO DAILY 10/20/21 05/14/25 History sildenafil 25 mg tablet 25 mg PO DAILY PRN as directed 10/23/21 10/23/21 History clonidine HCl 0.1 mg tablet 0.1 mg PO DAILY #0 tabs 10/29/21 05/14/25 Rx lisdexamfetamine 30 mg capsule 30 mg PO DAILY 05/14/25 05/14/25 History (Vyvanse) sertraline 100 mg tablet (Zoloft) 150 mg PO DAILY 05/14/25 05/14/25 History Past Med/Surg History Problem List (Updated 05/14/25 @ 18:46 by SYD Walsh) Withdrawal from recreational drug Major depressive disorder, recurrent episode, severe with anxious distress HTN (hypertension) Narcolepsy and cataplexy Borderline personality disorder (Acute) Medical History (Updated 05/14/25 @ 18:46 by SYD Walsh) Bipolar 2 disorder JAIRO (generalized anxiety disorder) Depression with suicidal ideation Social History Smoking Status: Current every day smoker Tobacco Type: E-cigarettes / Vaping Preferred Language: Algerian Communication Ability: Effective Overlock Sewing Machine Operator Required: No Beliefs That Will Affect Care: None Feels Safe at Home: Yes Assistive Devices: Contacts and Glasses Review of Systems Review of Systems: All systems reviewed & are unremarkable except as noted in HPI & below Physical Exam Physical Exam: See addendum Results & Data Results & Data Vital Signs (Past 12 Hours) Vital Signs Temp Pulse Pulse Resp BP BP Pulse Ox 05/14/25 17:01 85 19 112/57 L 93 05/14/25 16:51 68 20 135/80 94 05/14/25 15:21 36.7 C 93 H 17 146/95 H 98 O2 Del Method 05/14/25 17:01 Room Air 05/14/25 16:51 Room Air 05/14/25 15:21 Room Air Laboratory Results Laboratory Results WBC 5.38 K/ul (4.8-10.8) 05/14/25 15:36 RBC 4.81 M/uL (4.70-6.10) 05/14/25 15:36 Hgb 14.2 g/dl (14.0-18.0) 05/14/25 15:36 Hct 41.7 % (42.0-52.0) L 05/14/25 15:36 MCV 86.7 fL (80.0-100.0) 05/14/25 15:36 MCH 29.5 pg (25.0-34.0) 05/14/25 15:36 MCHC 34.1 g/dL (32.0-36.0) 05/14/25 15:36 RDW Std Deviation 40.5 fL (36.4-46.3) 05/14/25 15:36 RDW Coeff of [place] 12.9 % (11.5-14.5) 05/14/25 15:36 Plt Count 225 K/uL (130-400) 05/14/25 15:36 MPV 10.6 fL (9.4-12.4) 05/14/25 15:36 Immature Gran % (Auto) 0.0 % 05/14/25 15:36 Neut % (Auto) 69.8 % 05/14/25 15:36 Lymph % (Auto) 24.0 % 05/14/25 15:36 [place] % (Auto) 4.8 % 05/14/25 15:36 Eos % (Auto) 0.7 % 05/14/25 15:36 Baso % (Auto) 0.7 % 05/14/25 15:36 Neut # (Auto) 3.75 K/uL (1.40-6.50) 05/14/25 15:36 Lymph # (Auto) 1.29 K/uL (1.20-3.40) 05/14/25 15:36 [place] # (Auto) 0.26 K/uL (0.11-0.59) 05/14/25 15:36 Eos # (Auto) 0.04 K/uL (0.00-0.50) 05/14/25 15:36 Baso # (Auto) 0.04 K/uL (0.00-0.20) 05/14/25 15:36 Immature Gran # (Auto) 0.00 K/uL (0.01-0.20) L 05/14/25 15:36 Sodium 138 mmol/L (136-145) 05/14/25 15:36 Potassium 4.4 mmol/L (3.5-5.1) 05/14/25 15:36 Chloride 105 mmol/L (98-107) 05/14/25 15:36 Carbon Dioxide 27 mmol/L (21-32) 05/14/25 15:36 Anion Gap 6 (3-11) 05/14/25 15:36 BUN 12 mg/dl (6-23) 05/14/25 15:36 Creatinine 1.06 mg/dl (0.6-1.4) 05/14/25 15:36 Est Cr Clr Drug Dosing 131.5 ml/min 05/14/25 15:36 eGFR 93.86 05/14/25 15:36 BUN/Creatinine Ratio 11.3 (10-20) 05/14/25 15:36 Glucose 96 mg/dl (70-99(Fasting)) 05/14/25 15:36 Calcium 9.3 mg/dl (8.6-10.3) 05/14/25 15:36 Total Bilirubin 0.7 mg/dl (0.2-1.0) 05/14/25 15:36 AST 21 U/L (13-39) 05/14/25 15:36 ALT 14 U/L (7-52) 05/14/25 15:36 Alkaline Phosphatase 73 U/L (34-104) 05/14/25 15:36 Total Protein 7.3 gm/dl (6.0-8.3) 05/14/25 15:36 Albumin 4.8 gm/dl (3.4-5.0) 05/14/25 15:36 Globulin 2.5 gm/dl (2.5-4.0) 05/14/25 15:36 Albumin/Globulin Ratio 1.9 (0.9-2) 05/14/25 15:36 TSH 0.607 uIu/ml (0.300-4.500) 05/14/25 15:36 Urine Color Yellow 05/14/25 15:36 Urine Appearance Clear (Clear) 05/14/25 15:36 Urine pH 8.5 (4.5-7.5) H 05/14/25 15:36 Ur Specific [place] 1.012 (1.000-1.030) 05/14/25 15:36 Urine Protein Negative (Negative) 05/14/25 15:36 Urine Glucose (UA) Negative (Negative) 05/14/25 15:36 Urine Ketones Negative (Negative) 05/14/25 15:36 Urine Blood Negative (Negative) 05/14/25 15:36 Urine Nitrite Negative (Negative) 05/14/25 15:36 Urine Bilirubin Negative (Negative) 05/14/25 15:36 Urine Urobilinogen Negative (Negative) 05/14/25 15:36 Ur Leukocyte Esterase Negative (Negative) 05/14/25 15:36 Urine Comment 05/14/25 15:36 Salicylates < 3.0 mg/dl (3.0-30) L 05/14/25 15:36 Urine Opiates Screen Neg (Neg) 05/14/25 15:36 Ur Methadone, Qual Neg (Neg) 05/14/25 15:36 Urine Fentanyl Screen Neg (Neg) 05/14/25 15:36 Acetaminophen < 3 ug/ml (10-30) L 05/14/25 15:36 Urine Barbiturates Neg (Neg) 05/14/25 15:36 Ur Phencyclidine (PCP) Neg (Neg) 05/14/25 15:36 U Amphetamin/Meth Scrn Neg (Neg) 05/14/25 15:36 MDMA (Ecstasy) Screen Neg (Neg) 05/14/25 15:36 U Benzodiazepines Scrn Neg (Neg) 05/14/25 15:36 Ur Cocaine Metabolite Neg (Neg) 05/14/25 15:36 U Marijuana (THC) Screen Pos (Neg) H 05/14/25 15:36 Ethyl Alcohol mg/dL < 10.0 mg/dl (<10.0) 05/14/25 15:36 Supervising Physician Co-Signing Physician Notes Presents with kratom withdrawal symptoms (twitching, feeling lethargic, diarrhea, etc) Had been on kratom for about 2-3 years, switched to a different type/brand (7 hydroxymitragynine) about a year ago. Quit and was clean for about 2 months and only started back about 2-3 weeks ago Stated he was taking 60mg twice a day, last was yesterday afternoon Reports he has been depressed for sometime and started having suicidal thoughts Takes THC by vape. Denied cocaine, meth, opioid use On exam General: Not in distress Eyes: PERRL, conjunctivae normal, not pale, anicteric sclerae, EOM intact bilaterally ENMT: External ear and nose normal, oropharynx normal Respiratory: Normal respiratory effort, no respiratory distress, lungs clear to auscultation Cardiovascular: RRR S1 S2 Gastrointestinal (Abdomen): Abdomen is not distended, soft, non-tender to palpation, normal bowel sounds Musculoskeletal: No pedal edema Neurologic: Alert and oriented x 3, No focal weakness, sensation grossly intact Psychiatric: Flat affect Kratom withdrawal Depression with suicidal ideation Continue HEEL SCOURER clonidine 0.2mg HS. Add 0.2mg q6h prn withdrawal symptoms Supportive care Psych consult Continue one to one and suicidal precautions at bedside Other plans as detailed by Evelin VELARDE
[2025-05-14] MEDS ORDERED: ACETAMINOPHEN 325 MG TAB PO PRN (19:18)
[2025-05-14] MEDS: lamoTRIgine 100 MG TAB PO SCH (20:25)
[2025-05-14] MEDS: ZOLPIDEM TARTRATE 5 MG TAB PO SCH (20:25)
--- NOTE | 2025-05-15 06:21 | Electrocardiogram Report ---
Test Reason : Blood Pressure : */* mmHG Vent. Rate : 67 BPM Atrial Rate : 67 BPM P-R Int : 132 ms QRS Dur : 106 ms QT Int : 394 ms P-R-T Axes : 18 44 23 degrees QTcB Int : 416 ms Normal sinus rhythm Normal ECG When compared with ECG of 20-Oct-2021 19:11, No significant change was found Confirmed by Dell Ortega ([id number]) on 05/15/2025 6:20:54 AM Referred By: Boyd Nunes Confirmed By: Dell Ortega
[2025-05-15 07:45] LABS: Hematocrit (blood only) 41.1 % (42.0-52.0); Hemoglobin 13.5 g/dl (14.0-18.0); Immature Granulocytes # (auto) 0.01 K/uL (0.01-0.20); Immature Granulocytes % (auto) 0.2 %; Mean Corpuscular Hemoglobin 29.2 pg (25.0-34.0); Mean Corpuscular Volume 88.8 fL (80.0-100.0); Platelet Count 197 K/uL (130-400); RDW Standard Deviation 42.6 fL (36.4-46.3); Red Blood Count 4.63 M/uL (4.70-6.10); White Blood Count 4.04 K/ul (4.8-10.8)
[2025-05-15 08:02] LABS: Alanine Aminotransferase 12.0 U/L (7-52); Albumin Globulin Ratio 1.9 (0.9-2); Albumin Level 4.3 gm/dl (3.4-5.0); Alkaline Phosphatase 70.0 U/L (34-104); Anion Gap 3.0 (3-11); Bilirubin,Total 0.5 mg/dl (0.2-1.0); Blood Urea Nitrogen 10.0 mg/dl (6-23); Calcium 9.1 mg/dl (8.6-10.3); Carbon Dioxide 29.0 mmol/L (21-32); Chloride 109.0 mmol/L (98-107); Creatinine Clr Calc Pharmacy 145.2 ml/min; Globulin 2.3 gm/dl (2.5-4.0); Glucose 109.0 mg/dl (70-99(Fasting)); Magnesium 2.2 mg/dl (1.7-2.4); Potassium 4.7 mmol/L (3.5-5.1); Sodium 141.0 mmol/L (136-145); Total Protein 6.6 gm/dl (6.0-8.3)
[2025-05-15] MEDS: SERTRALINE HCL 50 MG TABLET PO SCH (08:21)
[2025-05-15] MEDS: ONDANSETRON INJ 2 MG/ML 2 ML VIAL IV PRN (09:54)
--- NOTE | 2025-05-15 12:49 | Psychiatric Consultation ---
Date of Consultation May 15, 2025 Impression / Recommendations Impression Diagnostically consistent with kratum/opioid use disorder as well as unspecified depression likely a combination of substance-induced as well as MDD given significant hopelessness and SI with plans. Acute risk of self-harm is high given SI with plans and hopelessness, he is agreeable to inpatient psychiatric treatment once medically stable. Hospitalist team wonders about option for suboxone. I think suboxone is very reasonable especially since his Kratum use meets criteria for a opioid/Kratum use disorder and he's using high amounts and experiencing withdrawal. Typically barrier to starting an induction is not being able to verify any outpatient prescriber but if hospitalist team feels comfortable starting suboxone without this I think it's very reasonable and will reduce his suffering. I did mention to him that because he doesn't have an outpatient prescriber and its the weekend if ultimately an outpt suboxone prescriber couldn't be found he'd have to taper off suboxone and he was ok with this should it come to that. He would like to continue his current psychiatric medications and start trazodone to help with sleep/depression. Agree with clonidine for symptomatic relief. Ideally if plan for suboxone induction would have nurses do COWS scale on him and then since last use was , could start suboxone today (typically ideal is minimum 12-36 hours). Based on literature review would aim for 8mg and then option to increase to 12mg if needed (https://pubmed.ncbi.nlm.nih.gov/73637619/). For induction recommend: bup/nx 4mg/1mg SL x1 and then could repeat with additional 4mg/1mg dose in 1-2 hours if symptoms persist. Could give another 4mg/1mg dose later in the day if he's still really struggling but would go no higher than 12mg for the first day. Overall, I spent a total of 80 minutes with this case including review of chart records, review of labwork, review of EKG QTc, direct evaluation of the patient at bedside, counseling the patient, discussion of the patient with the Nurse and with the hospitalist provider, discussion with the psychiatric liason during clinical rounds and documentation in the electronic health record. (1) Opioid use disorder: (2) MDD (major depressive disorder), recurrent episode, severe: (3) Depression with suicidal ideation: (4) Withdrawal from recreational drug: Plan -Continue 1-on-1 and suicide precautions -He cannot leave AMA, would meet 302 criteria if he asked to leave due to SI -Plan for inpatient psychiatry admission once medically stable -Monitor withdrawal using COWS (Clinical Opiate Withdrawal Scale). Clonidine day 1-4: 0.1 mg q6h prn up to 1.2 mg/day (hold for SBP<100), day 5 complete and reduce dose by 0.2 mg per day until discontinued OR can use clonidine patch 0.2 mg per day. Symptomatic treatment: dicyclomine 20mg q6h prn abdominal cramps, loperamide 2mg q6h prn diarrhea, ibuprofen 600 mg q6h prn pain, hydroxyzine 50mg q6h prn anxiety -Start trazodone 50mg HS -If suboxone is started recommend induction schedule as follows: * bup/nx 4mg/1mg SL x1 * then could repeat with additional bup/nx 4mg/1mg SL x1 dose in 1-2 hours if symptoms persist * Could give another 4mg/1mg dose later in the day if he's still really struggling but would go no higher than 12mg for the first day Psych History Identifying Data Prashanth Murray is a 35 yo man with a past medical history of borderline personality disorder, major depression, HTN, kratom use who presents to the ED on 05/14/2025 with complaints of kratom withdrawal. Chief Complaint "A lot of hopelessness". History of Present Illness Prashanth describes worsening depression and hopelessness due to ongoing use of Kratum which he has become reliant on to function. He's been using Kratum for about two years but had a period of early remission for three months this summer. He starting using Kratum again about 3 weeks ago and feels powerless to stop. When he tries to cut down or stop using it he develops body aches, cogn itive deficits and severe hopelessness and "really depressed without it". he attributes previous remission to fear of losing his marriage or job but also feels he cannot speak or function without it. Notes it's to the point where "I can't even talk to my unless I'm high". Currently experiencing body aches, nausea, diarrhea, goose flesh and insomnia. He started to have "really dark thoughts" about suicide including running into traffic and 'that's why I came in, I don't usually think like that". He's been using 100mg of Kratum per day. Has been trying to start seeing outpatient psychiatry, sees a therapist every other week. No access to guns. No prior suicide attempts but near attempt with a gun about 8 years ago. Taking sertraline (attempts to maximize dose caused sexual side effects), Ambien, Vyvanse, lamictal and clonidine. He feels safe in the hospital due to having camera in his room and knowing nurses and staff are keeping a close on him. Allergies Allergy/AdvReac Type Severity Reaction Status Date / Time No Known Allergies Allergy Unverified 10/20/21 22:57 Home Medications Medication Instructions Recorded Confirmed Type lamotrigine 100 mg tablet 100 mg PO BID 10/20/21 05/14/25 History (Lamictal) zolpidem 10 mg tablet (Ambien) 5 mg PO DAILY 10/20/21 05/14/25 History clonidine HCl 0.1 mg tablet 0.1 mg PO DAILY #0 tabs 10/29/21 05/14/25 Rx lisdexamfetamine 30 mg capsule 30 mg PO DAILY 05/14/25 05/14/25 History (Vyvanse) sertraline 100 mg tablet (Zoloft) 150 mg PO DAILY 05/14/25 05/14/25 History Patient History Medical History Bipolar 2 disorder JAIRO (generalized anxiety disorder) Depression with suicidal ideation Social History Smoking Status: Current every day smoker Tobacco Type: E-cigarettes / Vaping Second Hand Exposure: No; Do You Dip or Chew Tobacco: No; Tobacco Cessation Education Requested by Patient: No Hx Alcohol Use: No Hx Substance Use: Yes Last Used Substance: Hours (ago) Substance Use Type Other:: Simba Preferred Language: Senegalese Communication Ability: Effective Pediatric Assistant Required: No Beliefs That Will Affect Care: None Current Living Situation: Significant Other Other Information That Helps Us Care for You: No Feels Safe at Home: Yes Safety Concerns: Feels Safe At This Time Assistive Devices: None Physical Exam Vital Signs (Past 24 Hours): Last Vital Signs Temp 36.6 C 05/15/25 03:11 Pulse 75 05/15/25 10:05 Resp 15 05/15/25 10:05 BP 117/71 05/15/25 10:05 Pulse Ox 100 05/15/25 10:05 O2 Del Method Room Air 05/15/25 10:05 Results & Data (PSY) Medications Administered Clonidine HCl (Clonidine Hcl 0.1 Mg Tab) 0.2 mg PO HS [facility] Stop: 06/13/25 20:59 Last Admin: 05/14/25 20:25 Dose: 0.2 mg Documented By: YELITZA Clonidine HCl (Clonidine Hcl 0.1 Mg Tab) 0.2 mg PO Q6H PRN PRN Reason: withdrawal symptoms Stop: 06/13/25 18:11 Last Admin: 05/15/25 09:53 Dose: 0.2 mg Documented By: jamil Lamotrigine (Lamotrigine 100 Mg Tab) 100 mg PO BID [facility]; Protocol Stop: 06/13/25 20:59 Last Admin: 05/15/25 08:21 Dose: 100 mg Documented By: jamil Admin: 05/14/25 20:25 Dose: 100 mg Documented By: YELITZA Miscellaneous (Vyvanse ~ Order Awaiting Action) 1 each N/A QS [facility] Stop: 06/13/25 18:29 Last Admin: 05/15/25 08:55 Dose: Not Given Documented By: jamil Admin: 05/14/25 23:08 Dose: Not Given Documented By: Admin: 05/14/25 19:08 Dose: Not Given Documented By: YELITZA Ondansetron HCl (Ondansetron Inj 2 Mg/Ml 2 Ml Vial) 4 mg IV Q6H PRN PRN Reason: Nausea And Vomiting Stop: 06/13/25 18:12 Last Admin: 05/15/25 09:54 Dose: 4 mg Documented By: jamil Sertraline HCl (Sertraline Hcl 50 Mg Tablet) 150 mg PO DAILY [facility] Stop: 06/14/25 08:59 Last Admin: 05/15/25 08:21 Dose: 150 mg Documented By: jamil Zolpidem Tartrate (Zolpidem Tartrate 5 Mg Tab) 5 mg PO HS [facility] Stop: 06/13/25 20:59 Last Admin: 05/14/25 20:25 Dose: 5 mg Documented By: YELITZA Coding Level of Care Code 59908 IN/OBS CONSULT LVL 5,80M Diagnoses Opioid use disorder F11.90 MDD (major depressive disorder), recurrent episode, severe F33.2 Depression with suicidal ideation F32.A; R45.851 Withdrawal from recreational drug F19.939
--- NOTE | 2025-05-15 13:31 | Hospitalist Progress Note ---
Date of Service May 15, 2025 Assessment & Plan (1) Major depressive disorder, recurrent episode, severe with anxious distress: (2) HTN (hypertension): (3) Narcolepsy and cataplexy: (4) Borderline personality disorder: (5) Withdrawal from recreational drug: (6) Bipolar 2 disorder: (7) Depression with suicidal ideation: Plan The patient is a 35-year-old male who presents to the ED on 05/14/2025 with complaints of kratom withdrawal including nausea/vomiting/diarrhea/paranoia and suicidal thoughts Kratom withdrawal Suicidal thoughts Reported last using 24 hours ago, interested in psychiatric help Otherwise, symptomatic care with [facility] Psych consult, appreciate recs -will remain on one-to-one until evaluated by psych -discussed with psychiatry and patient, will start Suboxone 4mg bid to assist with withdrawal symptoms of Kratom -will need to establish with addiction provider in area, understands he may need to titrate down on his own -check ECG (very low risk of QT prolongation, but given behavioral health needs good to have baseline) -start trazodone to assist with sleep during withdrawal period -will need monitoring for 24 hours on suboxone before being medically stable for transfer to behavioral health unit -check CK, B12, folic acid in prep for medical clearance -check HIV, Hep C given Kratom use Hx personality disorder: Continue Lamictal Hx ADHD: Continue Vyvanse Hx anxiety/depression: Continue sertraline I spent a total of 60 minutes in direct patient care, including [id number] time with the patient and/or family, reviewing medical records, ordering and reviewing diagnostic tests, and coordinating care with other healthcare providers. This time includes: history taking, physical examination, medical decision making, counseling, ECG interpretation, imaging interpretation, lab interpretation, orders, and education, excluding time spent in the performance of separately billed services. Admission and Anticipated Discharge Date Admission Date: May 14, 2025 Subjective Patient seen and examined at bedside. Expresses suicidial ideation with many plans. Suffering from kratom withdrawal. Feels on edge. Review of Systems Review of Systems: CONSTITUTIONAL: anxious EYES: Patient denies any visual symptoms. EARS, NOSE, AND THROAT: No difficulties with hearing. No symptoms of rhinitis or sore throat. CARDIOVASCULAR: Patient denies chest pains, palpitations, orthopnea and paroxysmal nocturnal dyspnea. RESPIRATORY: No dyspnea on exertion, no wheezing or cough. GI: No nausea, vomiting, diarrhea, constipation, abdominal pain, hematochezia or melena. : No urinary hesitancy or dribbling. No nocturia or urinary frequency. No abnormal urethral discharge. MUSCULOSKELETAL: No myalgias or arthralgias. NEUROLOGIC: No chronic headaches, no seizures. Patient denies numbness, tingling or weakness. PSYCHIATRIC: Patient denies problems with mood disturbance. No problems with anxiety. ENDOCRINE: No excessive urination or excessive thirst. DERMATOLOGIC: Patient denies any rashes or skin changes. Physical Exam Physical Exam: Gen: A&O 3 NAD HEENT: NCAT, EOMI, not icteric. External ears normal. No rhinorrhea. Moist mucous membranes. Neck: Supple, full range of motion, no observable masses, No meningeal sign. Lungs: No Respiratory distress. CV: RRR, no edema. Abdomen: Soft, nondistended, No rebound tenderness. MSK: No joint swelling, no redness. Skin: No rashes, petechiae, lesions. Normal color per patient. Neuro: Normal Gait, Grossly intact. Psych: expresses suicidal ideation with plan, appears anxious Results & Data Results & Data Vital Signs (Past 12 Hours) Vital Signs Temp Pulse Pulse Resp BP Pulse Ox O2 Del Method 05/15/25 13:20 60 17 125/70 96 Room Air 05/15/25 10:05 75 15 117/71 100 Room Air 05/15/25 09:28 57 L 13 118/68 98 Room Air 05/15/25 08:39 62 20 111/77 97 Room Air 05/15/25 07:06 58 L 05/15/25 06:26 51 L 16 136/89 97 Room Air 05/15/25 05:31 54 L 05/15/25 04:57 51 L 18 112/69 99 Room Air 05/15/25 03:11 36.6 C 66 18 112/70 98 Room Air Laboratory Results -personally reviewed, no leukocytosis, creatinine at baseline Medications Administered Clonidine HCl (Clonidine Hcl 0.1 Mg Tab) 0.2 mg PO HS [facility] Stop: 06/13/25 20:59 Last Admin: 05/14/25 20:25 Dose: 0.2 mg Documented By: YELITZA Clonidine HCl (Clonidine Hcl 0.1 Mg Tab) 0.2 mg PO Q6H PRN PRN Reason: withdrawal symptoms Stop: 06/13/25 18:11 Last Admin: 05/15/25 09:53 Dose: 0.2 mg Documented By: jamil Lamotrigine (Lamotrigine 100 Mg Tab) 100 mg PO BID [facility]; Protocol Stop: 06/13/25 20:59 Last Admin: 05/15/25 08:21 Dose: 100 mg Documented By: jamil Admin: 05/14/25 20:25 Dose: 100 mg Documented By: YELITZA Miscellaneous (Vyvanse ~ Order Awaiting Action) 1 each N/A QS [facility] Stop: 06/13/25 18:29 Last Admin: 05/15/25 08:55 Dose: Not Given Documented By: jamil Admin: 05/14/25 23:08 Dose: Not Given Documented By: Admin: 05/14/25 19:08 Dose: Not Given Documented By: YELITZA Ondansetron HCl (Ondansetron Inj 2 Mg/Ml 2 Ml Vial) 4 mg IV Q6H PRN PRN Reason: Nausea And Vomiting Stop: 06/13/25 18:12 Last Admin: 05/15/25 09:54 Dose: 4 mg Documented By: jamil Sertraline HCl (Sertraline Hcl 50 Mg Tablet) 150 mg PO DAILY [facility] Stop: 06/14/25 08:59 Last Admin: 05/15/25 08:21 Dose: 150 mg Documented By: jamil Zolpidem Tartrate (Zolpidem Tartrate 5 Mg Tab) 5 mg PO HS [facility] Stop: 06/13/25 20:59 Last Admin: 05/14/25 20:25 Dose: 5 mg Documented By: YELITZA
[2025-05-15 14:44] LABS: Folate (Folic Acid),Ser orPlas 12.1 ng/ml (>5.38)
[2025-05-15 14:45] LABS: Vitamin B12 456.0 pg/ml (180-914)
[2025-05-15] MEDS: BUPRENORPHINE/NALOXONE 2/0.5MG TAB SL SCH (21:27)
--- NOTE | 2025-05-16 06:38 | Electrocardiogram Report ---
Test Reason : Blood Pressure : */* mmHG Vent. Rate : 55 BPM Atrial Rate : 55 BPM P-R Int : 124 ms QRS Dur : 88 ms QT Int : 428 ms P-R-T Axes : 17 52 37 degrees QTcB Int : 409 ms Sinus bradycardia Otherwise normal ECG When compared with ECG of 14-May-2025 16:35, No significant change was found Confirmed by Dell Ortega ([id number]) on 05/16/2025 6:37:37 AM Referred By: Boyd Nunes Confirmed By: Dell Ortega
[2025-05-16 07:51] LABS: Alanine Aminotransferase 12.0 U/L (7-52); Albumin Globulin Ratio 1.9 (0.9-2); Albumin Level 4.4 gm/dl (3.4-5.0); Alkaline Phosphatase 64.0 U/L (34-104); Anion Gap 4.0 (3-11); Bilirubin,Total 0.7 mg/dl (0.2-1.0); Blood Urea Nitrogen 10.0 mg/dl (6-23); Calcium 9.2 mg/dl (8.6-10.3); Carbon Dioxide 29.0 mmol/L (21-32); Chloride 107.0 mmol/L (98-107); Creatinine Clr Calc Pharmacy 132.8 ml/min; Globulin 2.3 gm/dl (2.5-4.0); Glucose 107.0 mg/dl (70-99(Fasting)); Potassium 3.9 mmol/L (3.5-5.1); Sodium 140.0 mmol/L (136-145); Total Protein 6.7 gm/dl (6.0-8.3)
--- NOTE | 2025-05-16 12:48 | Psychiatric Progress Note ---
Date of Service May 16, 2025 Impression / Recommendations Impression Diagnostically consistent with kratum/opioid use disorder as well as unspecified depression likely a combination of substance-induced as well as MDD given significant hopelessness and SI with plans. Acute risk of self-harm is high given SI with plans and hopelessness, he is agreeable to inpatient psychiatric treatment once medically stable. Hospitalist team wonders about option for suboxone. I think suboxone is very reasonable especially since his Kratum use meets criteria for a opioid/Kratum use disorder and he's using high amounts and experiencing withdrawal. Typically barrier to starting an induction is not being able to verify any outpatient prescriber but if hospitalist team feels comfortable starting suboxone without this I think it's very reasonable and will reduce his suffering. I did mention to him that because he doesn't have an outpatient prescriber and its the weekend if ultimately an outpt suboxone prescriber couldn't be found he'd have to taper off suboxone and he was ok with this should it come to that. A: Ongoing depression with SI and plans. Plan for voluntary inpatient psychiatric admission once medically stable. Overall, I spent a total of 35 minutes with this case including review of chart records, review of labwork, direct evaluation of the patient at bedside, counseling the patient, discussion of the patient with the hospitalist provider, discussion with the psychiatric liason during clinical rounds and documentation in the electronic health record. (1) MDD (major depressive disorder), recurrent episode, severe: (2) Depression with suicidal ideation: (3) Opioid use disorder: (4) Withdrawal from recreational drug: Plan 05/16/2025: -Plan for inpatient psychiatric admission once medically stable pending negative COVID test 05/15/2025: -Continue 1-on-1 and suicide precautions -He cannot leave AMA, would meet 302 criteria if he asked to leave due to SI -Plan for inpatient psychiatry admission once medically stable -Monitor withdrawal using COWS (Clinical Opiate Withdrawal Scale). Clonidine day 1-4: 0.1 mg q6h prn up to 1.2 mg/day (hold for SBP<100), day 5 complete and reduce dose by 0.2 mg per day until discontinued OR can use clonidine patch 0.2 mg per day. Symptomatic treatment: dicyclomine 20mg q6h prn abdominal cramps, loperamide 2mg q6h prn diarrhea, ibuprofen 600 mg q6h prn pain, hydroxyzine 50mg q6h prn anxiety -Start trazodone 50mg HS -If suboxone is started recommend induction schedule as follows: * bup/nx 4mg/1mg SL x1 * then could repeat with additional bup/nx 4mg/1mg SL x1 dose in 1-2 hours if symptoms persist * Could give another 4mg/1mg dose later in the day if he's still really struggling but would go no higher than 12mg for the first day Interval History Identifying Information Prashanth Murray is a 35 yo man with a past medical history of borderline personality disorder, major depression, HTN, kratom use who presents to the ED on 05/14/2025 with complaints of kratom withdrawal. Chief Complaint "A little more hopeful". Subjective Subjective Patient was seen & assessed and interval progress reviewed. Started suboxone and slept well. Physically feeling better today but ongoing depression. Slightly more hopeful. Tearful. Didn't eat breakfast but some lessening of nausea, ongoing diarrhea. Physical Exam Vital Signs (Past 24 Hours) Last Vital Signs Temp 36.6 C 05/15/25 03:11 Pulse 49 L 05/16/25 10:06 Resp 13 05/16/25 10:06 BP 87/45 L 05/16/25 06:00 Pulse Ox 96 05/16/25 06:56 O2 Del Method Room Air 05/15/25 19:18 Results & Data ([facility]) Laboratory Results Laboratory Results - last 24 hr 05/15/25 05/16/25 13:44 07:07 Sodium 140 Potassium 3.9 Chloride 107 Carbon Dioxide 29 Anion Gap 4 BUN 10 Creatinine 1.05 Est Cr Clr Drug Dosing 132.8 eGFR 94.93 BUN/Creatinine Ratio 9.5 L Glucose 107 H Calcium 9.2 Total Bilirubin 0.7 AST 16 ALT 12 Alkaline Phosphatase 64 Total Creatine Kinase 139 Total Protein 6.7 Albumin 4.4 Globulin 2.3 L Albumin/Globulin Ratio 1.9 Vitamin B12 456 Folate 12.10 Hepatitis C Antibody Negative HIV 1&2 Ab/P24 Ag 4thGn Negative Current Inpatient Medications Current Inpatient Medications: Current Inpatient Medications Acetaminophen (Acetaminophen 325 Mg Tab) 650 mg PO Q4H PRN PRN Reason: Pain or Fever Stop: 06/13/25 19:17 Buprenorphine/Naloxone (Buprenorphine/Naloxone 2/0.5mg Tab) 2 tab SL BID [facility] Stop: 06/14/25 20:59 Last Admin: 05/16/25 09:51 Dose: 2 tab Clonidine HCl (Clonidine Hcl 0.1 Mg Tab) 0.2 mg PO HS [facility] Stop: 06/13/25 20:59 Last Admin: 05/15/25 20:47 Dose: 0.2 mg Clonidine HCl (Clonidine Hcl 0.1 Mg Tab) 0.2 mg PO Q6H PRN PRN Reason: withdrawal symptoms Stop: 06/13/25 18:11 Last Admin: 05/15/25 16:52 Dose: 0.2 mg Lamotrigine (Lamotrigine 100 Mg Tab) 100 mg PO BID [facility]; Protocol Stop: 06/13/25 20:59 Last Admin: 05/16/25 09:47 Dose: 100 mg Miscellaneous (Vyvanse ~ Order Awaiting Action) 1 each N/A QS [facility] Stop: 06/13/25 18:29 Last Admin: 05/15/25 08:55 Dose: Not Given Ondansetron HCl (Ondansetron Inj 2 Mg/Ml 2 Ml Vial) 4 mg IV Q6H PRN PRN Reason: Nausea And Vomiting Stop: 06/13/25 18:12 Last Admin: 05/15/25 15:46 Dose: 4 mg Sertraline HCl (Sertraline Hcl 50 Mg Tablet) 150 mg PO DAILY [facility] Stop: 06/14/25 08:59 Last Admin: 05/16/25 09:47 Dose: 150 mg Trazodone HCl (Trazodone Hcl 50 Mg Tab) 50 mg PO HS [facility] Stop: 06/14/25 20:59 Last Admin: 05/15/25 20:47 Dose: 50 mg Zolpidem Tartrate (Zolpidem Tartrate 5 Mg Tab) 5 mg PO HS [facility] Stop: 06/13/25 20:59 Last Admin: 05/15/25 21:27 Dose: 5 mg
--- NOTE | 2025-05-16 15:19 | Hospitalist Progress Note ---
Date of Service May 16, 2025 Assessment & Plan (1) Major depressive disorder, recurrent episode, severe with anxious distress: (2) HTN (hypertension): (3) Narcolepsy and cataplexy: (4) Borderline personality disorder: (5) Withdrawal from recreational drug: (6) Bipolar 2 disorder: (7) Depression with suicidal ideation: Plan The patient is a 35-year-old male who presents to the ED on 05/14/2025 with complaints of kratom withdrawal including nausea/vomiting/diarrhea/paranoia and suicidal thoughts. Kratom withdrawal Suicidal thoughts Reported last using 24 hours ago, interested in psychiatric help Otherwise, symptomatic care with Zofran Psych consult, appreciate recs -will remain on one-to-one until evaluated by psych -discussed with psychiatry and patient, will start Suboxone 4mg bid to assist with withdrawal symptoms of Kratom -will need to establish with addiction provider in area, understands he may need to titrate down on his own -check ECG (very low risk of QT prolongation, but given behavioral health needs good to have baseline) -continue trazodone to assist with sleep during withdrawal period -will need monitoring for 24 hours on suboxone before being medically stable for transfer to behavioral health unit -metabolic workup unremarkable -will be medically stable for discharge at 9pm tonight, relayed to psychiatry team -would hold off on increasing dose of suboxone for 4-5 days to allow medication to reach half life therapeutic threshold Opioid Withdrawal Related Nausea -2/2 withdrawal -guidelines recommend prochlorpramazine but unable to given in setting of suicidal ideation Plan: -continue prn zofran, increase to 8mg q8hr prn -if refractory would use promethazine or decadron -if diarrhea, treat with loperamide Hx personality disorder: Continue Lamictal Hx ADHD: Continue Vyvanse Hx anxiety/depression: Continue sertraline I spent a total of 50 minutes in direct patient care, including [id number] time with the patient and/or family, reviewing medical records, ordering and reviewing diagnostic tests, and coordinating care with other healthcare providers. This time includes: history taking, physical examination, medical decision making, counseling, ECG interpretation, imaging interpretation, lab interpretation, orders, and education, excluding time spent in the performance of separately billed services. Admission and Anticipated Discharge Date Admission Date: May 14, 2025 Subjective Patient seen and examined at bedside. Patient doing better today, feels withdrawals are improved. Still having some nausea however. Review of Systems Review of Systems: CONSTITUTIONAL: anxious EYES: Patient denies any visual symptoms. EARS, NOSE, AND THROAT: No difficulties with hearing. No symptoms of rhinitis or sore throat. CARDIOVASCULAR: Patient denies chest pains, palpitations, orthopnea and paroxysmal nocturnal dyspnea. RESPIRATORY: No dyspnea on exertion, no wheezing or cough. GI: No nausea, vomiting, diarrhea, constipation, abdominal pain, hematochezia or melena. : No urinary hesitancy or dribbling. No nocturia or urinary frequency. No abnormal urethral discharge. MUSCULOSKELETAL: No myalgias or arthralgias. NEUROLOGIC: No chronic headaches, no seizures. Patient denies numbness, tingling or weakness. PSYCHIATRIC: Patient denies problems with mood disturbance. No problems with anxiety. ENDOCRINE: No excessive urination or excessive thirst. DERMATOLOGIC: Patient denies any rashes or skin changes. Physical Exam Physical Exam: Gen: A&O 3 NAD HEENT: NCAT, EOMI, not icteric. External ears normal. No rhinorrhea. Moist mucous membranes. Neck: Supple, full range of motion, no observable masses, No meningeal sign. Lungs: No Respiratory distress. CV: RRR, no edema. Abdomen: Soft, nondistended, No rebound tenderness. MSK: No joint swelling, no redness. Skin: No rashes, petechiae, lesions. Normal color per patient. Neuro: Normal Gait, Grossly intact. Psych: expresses suicidal ideation with plan, improving Results & Data Results & Data Vital Signs (Past 12 Hours) Vital Signs Pulse Resp BP BP Pulse Ox O2 Del Method 05/16/25 14:00 51 H 104/67 94 Room Air 05/16/25 10:06 49 L 13 05/16/25 09:51 41 L 15 05/16/25 09:42 44 L 18 05/16/25 09:39 43 L 13 05/16/25 09:21 43 L 9 L 05/16/25 09:12 45 L 11 L 05/16/25 09:06 50 L 15 05/16/25 08:57 54 L 16 05/16/25 08:41 48 L 14 05/16/25 08:20 42 L 10 L 05/16/25 08:17 40 L 10 L 05/16/25 07:44 40 L 8 L 05/16/25 07:20 40 L 16 05/16/25 07:17 45 L 14 05/16/25 07:04 49 L 05/16/25 06:56 48 L 13 96 05/16/25 06:20 46 L 15 94 05/16/25 06:17 41 L 11 L 94 05/16/25 06:02 50 L 18 91 05/16/25 06:00 87/45 L 05/16/25 05:59 48 L 20 93 05/16/25 05:44 50 L 13 93 05/16/25 05:33 49 L 16 92 05/16/25 05:20 45 L 11 L 93 05/16/25 05:00 92/51 L 05/16/25 05:00 92/51 L 05/16/25 04:57 44 L 11 L 94 05/16/25 04:54 47 L 14 93 05/16/25 04:00 71 16 110/64 99 Laboratory Results -personally reviewed, creatinine at baseline, no leukocytosis Medications Administered Buprenorphine/Naloxone (Buprenorphine/Naloxone 2/0.5mg Tab) 2 tab SL BID BROOKE Stop: 06/14/25 20:59 Last Admin: 05/16/25 09:51 Dose: 2 tab Documented By: tamica Admin: 05/15/25 21:27 Dose: 2 tab Documented By: GARRET Clonidine HCl (Clonidine Hcl 0.1 Mg Tab) 0.2 mg PO HS BROOKE Stop: 06/13/25 20:59 Last Admin: 05/15/25 20:47 Dose: 0.2 mg Documented By: Admin: 05/14/25 20:25 Dose: 0.2 mg Documented By: YELITZA Clonidine HCl (Clonidine Hcl 0.1 Mg Tab) 0.2 mg PO Q6H PRN PRN Reason: withdrawal symptoms Stop: 06/13/25 18:11 Last Admin: 05/16/25 14:29 Dose: 0.2 mg Documented By: Admin: 05/15/25 16:52 Dose: 0.2 mg Documented By: Admin: 05/15/25 09:53 Dose: 0.2 mg Documented By: jamil Lamotrigine (Lamotrigine 100 Mg Tab) 100 mg PO BID BROOKE; Protocol Stop: 06/13/25 20:59 Last Admin: 05/16/25 09:47 Dose: 100 mg Documented By: tamica Admin: 05/15/25 20:48 Dose: 100 mg Documented By: Admin: 05/15/25 08:21 Dose: 100 mg Documented By: jamil Admin: 05/14/25 20:25 Dose: 100 mg Documented By: YELITZA Miscellaneous (Vyvanse ~ Order Awaiting Action) 1 each N/A QS BROOKE Stop: 06/13/25 18:29 Last Admin: 05/15/25 08:55 Dose: Not Given Documented By: jamil Admin: 05/14/25 23:08 Dose: Not Given Documented By: Admin: 05/14/25 19:08 Dose: Not Given Documented By: YELITZA Ondansetron HCl (Ondansetron Inj 2 Mg/Ml 2 Ml Vial) 4 mg IV Q6H PRN PRN Reason: Nausea And Vomiting Stop: 06/13/25 18:12 Last Admin: 05/16/25 14:28 Dose: 4 mg Documented By: Admin: 05/15/25 15:46 Dose: 4 mg Documented By: Admin: 05/15/25 09:54 Dose: 4 mg Documented By: jamil Sertraline HCl (Sertraline Hcl 50 Mg Tablet) 150 mg PO DAILY BROOKE Stop: 06/14/25 08:59 Last Admin: 05/16/25 09:47 Dose: 150 mg Documented By: tamica Admin: 05/15/25 08:21 Dose: 150 mg Documented By: jamil Trazodone HCl (Trazodone Hcl 50 Mg Tab) 50 mg PO HS BROOKE Stop: 06/14/25 20:59 Last Admin: 05/15/25 20:47 Dose: 50 mg Documented By: GARRET Zolpidem Tartrate (Zolpidem Tartrate 5 Mg Tab) 5 mg PO HS BROOKE Stop: 06/13/25 20:59 Last Admin: 05/15/25 21:27 Dose: 5 mg Documented By: Admin: 05/14/25 20:25 Dose: 5 mg Documented By: YELITZA
[2025-05-16] MEDS: NICOTINE 14 MG/24 HR PATCH TD SCH (19:14)
[2025-05-17] MEDS: REMOVE NICODERM PATCH SCH (08:45)
[2025-05-17] MEDS: ONDANSETRON 8MG OD TAB PO PRN (09:53)
--- NOTE | 2025-05-17 10:47 | Electrocardiogram Report ---
Test Reason : Blood Pressure : */* mmHG Vent. Rate : 43 BPM Atrial Rate : 43 BPM P-R Int : 118 ms QRS Dur : 90 ms QT Int : 434 ms P-R-T Axes : 29 52 36 degrees QTcB Int : 366 ms Marked sinus bradycardia Early repolarization Abnormal ECG When compared with ECG of 15-May-2025 14:23, No significant change was found Confirmed by Rakan Che ([id number]) on 05/17/2025 10:47:19 AM Referred By: Boyd Nunes Confirmed By: Rakan Che
[2025-05-17] MEDS: FAMOTIDINE 20 MG TAB PO PRN (12:20)
--- NOTE | 2025-05-17 13:04 | Discharge Summary ---
Discharge Summary Date of Service May 17, 2025 Principal Dx & Hospital Course #1 = Principal Diagnosis (1) Major depressive disorder, recurrent episode, severe with anxious distress: (2) HTN (hypertension): (3) Narcolepsy and cataplexy: (4) Borderline personality disorder: (5) Withdrawal from recreational drug: (6) Bipolar 2 disorder: (7) Depression with suicidal ideation: Plan The patient is a 35-year-old male who presents to the ED on 05/14/2025 with complaints of kratom withdrawal including nausea/vomiting/diarrhea/paranoia and suicidal thoughts. Kratom withdrawal Suicidal thoughts Reported last using 24 hours ago, interested in psychiatric help Otherwise, symptomatic care with Zofran Psych consult, appreciate recs -will remain on one-to-one u -continue trazodone to assist with sleep during withdrawal period -will need monitoring for 24 hours on suboxone before being medically stable for transfer to behavioral health unit -metabolic workup unremarkable -will be medically stable for discharge at 9pm tonight, relayed to psychiatry team -would hold off on increasing dose of suboxone for 4-5 days to allow medication to reach half life therapeutic threshold Opioid Withdrawal Related Nausea -2/2 withdrawal -guidelines recommend prochlorpramazine but unable to given in setting of suicidal ideation Plan: -continue prn zofran, increase to 8mg q8hr prn -if refractory would use promethazine or decadron -if diarrhea, treat with loperamide Hx personality disorder: Continue Lamictal Hx ADHD: Continue Vyvanse Hx anxiety/depression: Continue sertraline Notes For Next Care Provider 35-year-old male with a past medical history of borderline personality disorder, major depression, HTN, opioid abuse, kratom abuse who presents to the ED on 05/14/2025 with complaints of kratom withdrawal. Admitted to medicine for opioid withdrawal before psychiatric admission. On medicine, started on suboxone 4mg bid after discussion with psych provider, good data to support use in kratom withdrawal. Given 24 hours of suboxone. On 05/17/2025 patient medically stable for transfer to psychiatry. To do: [ ] f/u with addiction medicine provider outpatient Medication Changes From Visit -see below Admission HPI Per Admitting Provider The patient is a 35-year-old male with a past medical history of borderline personality disorder, major depression, HTN, opioid abuse, kratom abuse who presents to the ED on 05/14/2025 with complaints of kratom withdrawal. Patient reports using a specific kratom powder for about 2 years with no issues. About a year ago, he changed to a different strain and reported that the strain was much stronger and he felt it was hard to get off. He reported being clean for 2 months and relapsed 2 weeks ago after he was unknowingly given a tablet of kratom that he believed was a vitamin by his coworker. The patient reports trying to stop over the past 2 weeks and struggling. The patient would like to get help with his mental health and has been trying to get him to see a psychiatrist but has had an issue getting an appointment. He reports his withdrawal symptoms are nausea/vomiting/diarrhea and paranoia and anxiety. He endorsed suicidal thoughts that he contributes to the panic that comes along with withdrawing and anxiety of trying to stop using the kratom. He denies having a plan. He does report he had a suicide attempt in 2014. He plans to use a gun to take his life but a police crime scene technician pulled up to the car. He otherwise reports compliance with home medications. He also reports using a THC vape. Denies any other drug use Denies any fever/chills/chest pain/shortness of breath. On arrival to the ED, labs fairly unremarkable The patient will be admitted for further management of kratom withdrawal Discharge Exam Gen: A&O 3 NAD HEENT: NCAT, EOMI, not icteric. External ears normal. No rhinorrhea. Moist mucous membranes. Neck: Supple, full range of motion, no observable masses, No meningeal sign. Lungs: No Respiratory distress. CV: RRR, no edema. Abdomen: Soft, nondistended, No rebound tenderness. MSK: No joint swelling, no redness. Skin: No rashes, petechiae, lesions. Normal color per patient. Neuro: Normal Gait, Grossly intact. Psych: expresses suicidal ideation with plan, improving Updated Medication List Medication Instructions Recorded Confirmed Type lamotrigine 100 mg tablet 100 mg PO BID 10/20/21 05/14/25 History (Lamictal) zolpidem 10 mg tablet (Ambien) 5 mg PO DAILY 10/20/21 05/14/25 History clonidine HCl 0.1 mg tablet 0.1 mg PO DAILY #0 tabs 10/29/21 05/14/25 Rx lisdexamfetamine 30 mg capsule 30 mg PO DAILY 05/14/25 05/14/25 History (Vyvanse) sertraline 100 mg tablet (Zoloft) 150 mg PO DAILY 05/14/25 05/14/25 History buprenorphine 2 mg-naloxone 0.5 mg 2 tab sublingual BID 14 days #56 05/17/25 Rx sublingual tablet tabs clonidine HCl 0.1 mg tablet 0.2 mg (2 x 0.1 mg) PO HS #14 tabs 05/17/25 Rx nicotine 7 mg/24 hr daily 1 patch transdermal QAM #14 ea 05/17/25 Rx transdermal patch ondansetron 8 mg disintegrating 8 mg PO Q6H PRN nausea and 05/17/25 Rx tablet vomiting #30 tabs trazodone 50 mg tablet 50 mg PO HS #30 tabs 05/17/25 Rx Hospital Stay Data Consultations 05/14/25 17:38 ED Decision to Admit Stat 05/14/25 19:18 Consult Psychiatry Routine Pending Results Patient Have Any Pending Studies at Discharge: No Discharge Instructions Given to Patient (Per Discharging Provider) Diagnoses: kratom withdrawal, suicidal ideation with plan Follow Ups: PCP, psychiatry, addiction medicine provider 1. Please follow up with PCP, psychiatry, addiction medicine provider. 2. Please be cognicent of your suboxone, if unable to find outpatient provider will need to slowly titrate off. Total Time Total Time Spent Total Time Spent (In Minutes): I spent a total of 35 minutes in direct patient care, including [id number] time with the patient and/or family, reviewing medical records, ordering and reviewing diagnostic tests, and coordinating care with other healthcare providers. This time includes: history taking, physical examination, medical decision making, counseling, ECG interpretation, imaging interpretation, lab interpretation, orders, and education, excluding time spent in the performance of separately billed services.
[2025-05-17 15:08] VITALS: BP 122/75; RESP 20; TEMP 98.2; O2SAT 98
[2025-05-17 15:09] VITALS: PULSE 56
[2025-05-18 14:17] LABS: Marijuana Quant, GCMS Urine 3190 ng/mL (<5)
== END 2025-05-17 15:36 | disposition home or self-care (01) | DRG 885 ==
LOC: ED 14:51 → SUATTDRO 18:04 → EDINP 18:04 → 2S 05-15 19:20 → UNDODISIN 05-17 15:32

== ENCOUNTER 2025-05-17 13:38 | Inpatient (IN) ==
[2025-05-17] MEDS ORDERED: ACETAMINOPHEN 325 MG TAB PO PRN (13:41)
[2025-05-17] MEDS ORDERED: BISMUTH SUBSALICYLATE 262 MG CHEW PO PRN (13:41)
[2025-05-17] MEDS ORDERED: ALUMINUM/MAGNESIUM SUSP 30 ML UDC PO PRN (13:41)
[2025-05-17] MEDS ORDERED: SODIUM CHLORIDE 0.65% NA SOLN 45 ML (OCEAN) PRN (13:41)
[2025-05-17] MEDS: NICOTINE POLACRILEX 2 MG GUM MT PRN (16:07)
[2025-05-17] MEDS: INFLUENZA VACC TS2025-26(6m+)/PF (IIV3) 0.5mL Syr IM ONE (19:14)
[2025-05-17] MEDS: lamoTRIgine 100 MG TAB PO SCH (21:02)
[2025-05-17] MEDS: BUPRENORPHINE/NALOXONE 2/0.5MG TAB SL SCH (21:03)
[2025-05-17] MEDS: ZOLPIDEM TARTRATE 5 MG TAB PO SCH (21:03)
[2025-05-18] MEDS ORDERED: REMOVE NICODERM PATCH SCH (08:59)
[2025-05-18] MEDS ORDERED: NICOTINE 21 MG/24 HR TDSY TD SCH (09:00)
--- NOTE | 2025-05-18 09:09 | History & Physical ---
Date of Service May 18, 2025 Impression / Recommendations Impression PRASHANTH CASTANO is a 35-year-old man who currently lives in [place] with his and daughter (9), has a history of severe depression, borderline personality disorder, narcolepsy and cataplexy, generalized anxiety disorder, Kratum use disorder and was admitted on 05/17/25 15:36 on a 201 voluntary commitment for worsening depression with SI with plans. Diagnostically consistent with major depressive disorder as well as likely substance-induced depression as well as Kratum/opioid use disorder and borderline personality disorder and narcolepsy with cataplexy per history. Discussed medication treatment options in detail. Discussed risks, benefits and alternatives. He would like to continue prior to admission sertraline for MDD, lamictal for depression and mood stabilization, clonidine as off-label use for anxiety/sleep, Ambien for narcolepsy. he also consents to trial of Adderall ER in the hospital since Vyanse is not available on formulary for his narcolepsy. Reviewed side effects including but not limited to: GI, LEWIS, sexual side effects; potential for fatal rash with lamictal and importance of adherence, dizziness/low BP/syncope with clonidine, addictive potential/dangerous sleep walking behaviors with Ambien, addictive potential/insomnia/weight loss/mood changes with Adderall. He also consents to continuing suboxone for opioid use disorder. Will adjust to once daily dosing in the morning. Social work working on establishing outpatient suboxone clinic follow-up. May consider further titration to target ongoing cravings. Reviewed side effects including but not limited to: sedation, c ognitive changes, potential for respiratory suppression, constipation. The patient's use history and negative consequences suggests substance use disorder. Motivational interviewing was done as a brief intervention. Intervention was greater than 5 minutes in length and included assessing readiness to quit, advice on how to reduce or abstain and to set a specific goal for this hospitalization. table worker packager will also assist in anticipating barriers to reducing or abstaining from substance use and in problem-solving for solutions to those problems while arranging for referral to appropriate tr eatment. The patient is in action stage with regards to transtheoretical model of change. Recommended decreasing consumption due to disinhibiting effects and potential for worsening psychiatric symptoms. Overall I spent a total of 75 minutes for this admission including review of chart records, review of labwork, direct evaluation of the patient, counseling the patient, ordering medication, risk assessment, discussion with the psychiatric liason RN and documentation in the electronic health record. (1) MDD (major depressive disorder), recurrent episode, severe: (2) Opioid use disorder: (3) Suicidal thoughts: (4) Narcolepsy and cataplexy: (5) Borderline personality disorder: (6) JAIRO (generalized anxiety disorder): Plan 05/18/2025: The patient was admitted to the [facility] ([facility]) on q15 min checks (behavioral with suicide precautions) for safety. The patient will participate in group, recreational, and milieu therapies and will be offered additional individual and family sessions as clinically appropriate. -Continue current medications: * sertraline 150mg daily * lamictal 100mg BID * clonidine 0.2mg HS * Ambien 5mg HS -Switch from [employer] Vyvanse to Adderall ER 20mg daily while in the hospital (don't have 10mg closer dose equivalent on formulary) -Increase trazodone to 100mg HS to target insomnia (he has upcoming appointment with sleep medicine for sleep study) -Consolidate suboxone dosing to 8mg/2mg daily from BID Inventory Assets Strengths: supportive relationships, willing to get treatment Needs: safety and stabilization, medication adjustment, additional coping skills, increased outpatient services Suicide Risk Level Suicide Risk Level: High-Moderate (q15 min suicide checks) (increased depression and SI in context of substance use disorder, mood improving a bit and SI lessening, feels safe in the hospital and feels able to ask for support) Risk Factors Assessment Male: Yes : Yes Do You Have Access To A Gun?: No Health Problems: No Mental Health Diagnoses: Yes Substance Use Disorders: Yes Previous Attempt: No Family History of Suicide: No Previous Psychiatric Hospitalization: Yes Hopelessness: Yes Protective Factors Assessment Shinto Beliefs: Yes : Yes Responsible for Young Children: Yes Employed: Yes Stable Relationships: Yes Supportive Family: Yes Good Rapport with Provider: Yes Psychiatric History Identifying Data PRASHANTH CASTANO is a 35-year-old man who currently lives in [place] with his and daughter (9), has a history of severe depression, borderline personality disorder, narcolepsy and cataplexy, generalized anxiety disorder, Kratum use disorder and was admitted on 05/17/25 15:36 on a 201 voluntary commitment for worsening depression with SI with plans. Chief Complaint "What's the point". History of Present Illness Prashanth presents for psychiatric admission after medical admission for Kratum withdrawal. He presents following increased kratom use that developed over the past several months as well as worsening depression and suicidal ideation with plans of hanging himself or walking into traffic. He reports that his current psychiatric episode began last fall when his bosses, who are also his pastors and friends, moved and he discovered they have been speaking negatively about him which he describes as a significant betrayal that "really shook" him. He states this fed into his fear that he is "broken" and "real messed up". Following this incident Anamika began using regular kratom powder and capsules which he used steadily for approximately 9 months without it consuming him. However in early summer of this year a coworker introduced him to a new formulation of kratom that he describes as allowing him to "breathe again" and making him feel "I was so wrong until that moment and I just couldn't let go of it". He reports using this new form daily for about a week before recognizing it was expensive and attempting to stop, but experienced suicidal ideation after 2 days of cessation prompting him to resume use. Prashanth describes engaging in "the sketchiest stuff" including stealing lying and manipulating to obtain money for kratom stating it became "all I cared about because it was the only thing that allowed me or made me want to care about anything else". He reports that his "whole identity and happiness" became dependent on the substance. He acknowledges having insight and self-awareness about his condition but lacking "the motivation to pursue the tools" he knows work for him. He reports feeling disconnected from his usual caring, charismatic personality with a sense of humor and heart for people stating he has not seen this version of himself in 2 months. Prashanth expresses fear about his thoughts describing a "fatalistic mentality" where "it is all going to fall apart anyway" and feeling that "there is nothing motivating me or pushing me nothing that I find value in". From this emerged increasingly intense thoughts of suicide which especially frightened him because his and daughter whom he loves dearly did not seem to be significant deterrents anymore. He felt like his whole identify and happiness started to hinge on this substance. About two months ago he reflects on knowing he was addicted to it but he also had intense shame. Since starting suboxone on the medical floor he is feeling a little better physically and mentally but describes having this part of him that still craves it and wants to use even though he wants to engage in treatment and get better. He reports that his anxiety stems from life becoming "so carried away and overwhelming" to the point where he feels ineffective everywhere he goes, constantly worried about being lectured or what he missed or messed up. He reports this anxiety related to feeling overwhelmed by life responsibilities and struggles with avoidance behaviors though he wants to work again on more mindfulness techniques to stay present. He describes his biggest fear is not getting better. He acknowledges that his relationships suffer when he is using substances because people feel he is no longer being sincere or transparent which he attributes to his avoidance behaviors and tendency towards lies of omission or commission. He can however recognize that seeking treatment voluntarily was evidence of having some insight into how bad things had gotten and he recognizes this is the first time he has sought help while still having "things to lose" including his , home, daughter and job. Prashanth describes waking up in the morning as "a traumatic event" and that it is nearly impossible for him to get out of bed and he will "throw if it like crying" which his therapist has identified as a trauma response due to the experience of the severe depression and anxiety awaiting his day. He describes his depression as "I know what works but I got so stuck that I just could not" and finding that his mood has spiraled as his kratom use increase. Currently endorses depressive symptoms including tearfulness, anhedonia, changes in sleep, changes in appetite, lack of motivation, guilt, shame, decreased concentration, hopelessness, helplessness and suicidal ideation with plans. He is currently prescribed Ambien and Vyvanse (both for narcolepsy), Lamictal, Zoloft, clonidine, and trazodone started on the medical floor. Psychiatric ROS notable for possible hx of hypomania vs symptoms 2/2 substance use and borderline personality disorder. No current nor history of symptoms of florence, psychosis, OCD nor eating disorder. PHQ-9 score of 24 with 2 for Q9, JAIRO-7 score of 20, positive Richard BPD screen. Past Psychiatric History Current Psychiatric Diagnosis: borderline personality disorder, depression Outpatient Services: outpatient therapy with Natali Stuart at [facility] Previous Psych Admissions: [place]2012 for depression [facility] October 2021 for depression Do You Have Access To A Gun?: No History of Previous Suicide Attempt: No Past Medication Trials: armodafinil, Ritalin, Effexor, fluoxetine, Wellbutrin, abilify, celexa, lithium ("that was the worst"), mirtazapine (gave him restless legs), seroquel ("awful"), trazodone (restless legs) Allergies Allergy/AdvReac Type Severity Reaction Status Date / Time No Known Allergies Allergy Unverified 10/20/21 22:57 Home Medications Medication Instructions Recorded Confirmed Type lamotrigine 100 mg tablet 100 mg PO BID 10/20/21 05/17/25 History (Lamictal) lisdexamfetamine 30 mg capsule 30 mg PO DAILY 05/14/25 05/17/25 History (Vyvanse) sertraline 100 mg tablet (Zoloft) 150 mg PO DAILY 05/14/25 05/17/25 History buprenorphine 2 mg-naloxone 0.5 mg 2 tab sublingual BID 14 days #56 05/17/25 05/17/25 Rx sublingual tablet tabs clonidine HCl 0.1 mg tablet 0.2 mg (2 x 0.1 mg) PO HS #14 tabs 05/17/25 05/17/25 Rx clonidine HCl 0.2 mg tablet 0.2 mg PO Q6H PRN Withdrawal 05/17/25 05/17/25 History Symptoms ondansetron 8 mg disintegrating 8 mg PO Q6H PRN nausea and 05/17/25 05/17/25 Rx tablet vomiting #30 tabs trazodone 50 mg tablet 50 mg PO HS #30 tabs 05/17/25 05/17/25 Rx zolpidem 5 mg tablet 5 mg PO HS 05/17/25 05/17/25 History Family History Family History of: Other Mood Disorders and Alcoholism/Drug Abuse Family Mental Health History Comment: Mother- Histrionic Personality Disorder Alcohol History Hx of Alcohol Use Over the Past 12 Months: No AUDIT Total Score: 1 Smoking Use Have You Smoked or Used Tobacco Products in the Last 30 Days: Yes tobacco type: e-cigarettes Smoking Status: Current every day smoker Substance History Hx of Prescription Med Misuse Over the Past 12 Months: No Hx of Over the Counter Med Misuse Over the Past 12 Months: No Hx of Inhalent Misuse Over the Past 12 Months: No Hx of Organic Substance Use Over the Past 12 Months: Yes (Kratom Use) Hx of Illegal Substances/Street Drug Use Over Past 12 Months: No Problems as a Result of Past Substance Use: Life out of Control Problems as a Result of Past Substance Use Comments: recent inability to function without use of Kratom multiple times/day Personal History Living Arrangements: Home Living Arrangements Comments: "I live with my Sierra and my daughter Alex" Highest Grade Completed: College Highest Grade Completed Comment: "associates degree" Marital Status: Number Of Children: 2 Beliefs That Will Affect Care: None Hx Legal Problems: Yes (2012 two misdemenour theft charges; incarcerated for 3 months ) Hx Traumatic Life Events: Yes Patient History Medical History Bipolar 2 disorder JAIRO (generalized anxiety disorder) Depression with suicidal ideation Social History Smoking Status: Current every day smoker Tobacco Type: E-cigarettes / Vaping Second Hand Exposure: No; Do You Dip or Chew Tobacco: No; Hx Alcohol Use: No Hx Substance Use: Yes Last Used Substance: Hours (ago) Substance Use Type Other:: Nellito Preferred Language: Spanish Communication Ability: Effective Dietitian Research Required: No Beliefs That Will Affect Care: None Current Living Situation: Significant Other Feels Safe at Home: Yes Gender Identity: Male Assistive Devices: Contacts and Glasses Review of Systems Review of Systems: All systems reviewed & are unremarkable except as noted in HPI & below Physical Exam Psychiatric: Orientation: alert and oriented x 3 Apperance: appropriately dressed and appropriately groomed Eye Contact: good eye contact Motor Behavior: no abnormal motor movements Speech: normal rate/rhythm/volume of speech Affect: + depressed affect and + tearful affect Mood: + depressed mood and + anxious mood Thought Process: goal directed thought process Thought Content: + cognitive distortions, reality based without delusions, + worthlessness and + guilt Suicidal Thoughts: denies suicidal plan and denies suicidal intent; + reports suicidal thoughts Homicidal Thoughts: denies homicidal thoughts Hallucinations: no auditory hallucinations and no visual hallucinations Cognition: recent memory grossly intact, remote memory grossly intact, attention grossly intact and language grossly intact Estimated Intelligence: consistent with education level Insight: + fair insight Judgment: + fair judgement Vital Signs (Past 24 Hours): Last Vital Signs Temp 36.4 C L 05/18/25 06:18 Pulse 53 L 05/18/25 06:19 Resp 16 05/18/25 06:18 BP 106/70 05/18/25 06:19 Pulse Ox 98 05/17/25 16:07 O2 Del Method Room Air 05/17/25 16:07 Exam Statement: A physical exam was performed on the medical floor by Dr. Hidalgo for the purposes of medical clearance. I accept that physical as correct and adequate for the purposes of the inpatient physical exam. Results & Data ([facility]) Current Inpatient Medications Current Inpatient Medications: Current Inpatient Medications Acetaminophen (Acetaminophen 325 Mg Tab) 650 mg PO Q4H PRN PRN Reason: Headache or Minor Fever Stop: 06/16/25 13:40 Al Hydrox/Mg Hydrox/Simethicone (Aluminum/Magnesium Susp 30 Ml Udc) 30 ml PO Q4H PRN PRN Reason: GI Upset Stop: 06/16/25 13:40 Bismuth Subsalicylate (Bismuth Subsalicylate 262 Mg Chew) 2 tab PO Q30M PRN PRN Reason: Loose Stool/Diarrhea Stop: 06/16/25 13:40 Buprenorphine/Naloxone (Buprenorphine/Naloxone 2/0.5mg Tab) 2 tab SL BID [place] Stop: 06/16/25 20:59 Last Admin: 05/17/25 21:03 Dose: 2 tab Clonidine HCl (Clonidine Hcl 0.1 Mg Tab) 0.2 mg PO HS [place] Stop: 06/16/25 21:59 Last Admin: 05/17/25 21:03 Dose: 0.2 mg Hydroxyzine HCl (Hydroxyzine Hcl 25 Mg Tab) 50 mg PO HSZ PRN PRN Reason: Insomnia Stop: 06/16/25 13:40 Hydroxyzine HCl (Hydroxyzine Hcl 25 Mg Tab) 25 mg PO Q4H PRN PRN Reason: Anxiety Stop: 06/16/25 13:40 Last Admin: 05/17/25 16:06 Dose: 25 mg Lamotrigine (Lamotrigine 100 Mg Tab) 100 mg PO BID [facility]; Protocol Stop: 06/16/25 20:59 Last Admin: 05/17/25 21:02 Dose: 100 mg Magnesium Hydroxide (Magnesium Hydroxide Susp 30 Ml Udc) 30 ml PO DAILY PRN PRN Reason: Constipation Stop: 06/16/25 13:40 Miscellaneous (Remove Nicoderm Patch) 1 each N/A DAILY@0859 [facility] Stop: 06/17/25 08:58 Nicotine (Nicotine 14 Mg/24 Hr Patch) 1 patch TD QAM [facility] Stop: 06/17/25 08:59 Nicotine Polacrilex (Nicotine Polacrilex 2 Mg Gum) 1 - 2 piece MT Q2H PRN PRN Reason: Nicotine Withdrawal Symptoms Stop: 06/16/25 13:40 Last Admin: 05/17/25 19:19 Dose: 1 piece Ondansetron HCl (Ondansetron 8mg Od Tab) 8 mg PO Q6H PRN PRN Reason: nausea and vomiting Stop: 06/16/25 15:43 Sertraline HCl (Sertraline Hcl 50 Mg Tablet) 150 mg PO DAILY [facility] Stop: 06/17/25 08:59 Sodium Chloride (Sodium Chloride 0.65% Na Soln 45 Ml ([place])) 1 - 2 sprays NA PRN PRN PRN Reason: Nasal Dryness/Congestion Stop: 06/16/25 13:40 Trazodone HCl (Trazodone Hcl 50 Mg Tab) 50 mg PO [facility] Stop: 06/16/25 21:59 Last Admin: 05/17/25 21:03 Dose: 50 mg Zolpidem Tartrate (Zolpidem Tartrate 5 Mg Tab) 5 mg PO [facility] Stop: 06/16/25 21:59 Last Admin: 05/17/25 21:03 Dose: 5 mg
[2025-05-18] MEDS: SERTRALINE HCL 50 MG TABLET PO SCH (09:14)
[2025-05-18] MEDS: REMOVE NICODERM PATCH SCH (09:20)
[2025-05-18] MEDS: NICOTINE 14 MG/24 HR PATCH TD SCH (09:37)
[2025-05-18] MEDS: DOCUSATE SODIUM 100 MG CAP PO SCH (11:16)
[2025-05-18] MEDS: POLYETHYLENE (MIRALAX) 17 GM PACK PO SCH (11:16)
[2025-05-18] MEDS: BUPRENORPHINE/NALOXONE 2/0.5MG TAB SL ONE (12:30)
[2025-05-18] MEDS: ONDANSETRON 8MG OD TAB PO PRN (12:36)
[2025-05-18] MEDS: MAGNESIUM HYDROXIDE SUSP 30 ML UDC PO PRN (17:48)
[2025-05-19] MEDS: BUPRENORPHINE/NALOXONE 8/2 MG TAB SL SCH (09:06)
[2025-05-19] MEDS: BUPRENORPHINE/NALOXONE 2/0.5MG TAB SL SCH (09:09)
--- NOTE | 2025-05-19 09:13 | Psychiatric Progress Note ---
Date of Service May 19, 2025 Impression / Recommendations Impression ANA CASTANO is a 35-year-old man who currently lives in [place] with his and daughter (9), has a history of severe depression, borderline personality disorder, narcolepsy and cataplexy, generalized anxiety disorder, Kratum use disorder and was admitted on 05/17/25 15:36 on a 201 voluntary commitment for worsening depression with SI with plans. Diagnostically consistent with major depressive disorder as well as likely substance-induced depression as well as Kratum/opioid use disorder and borderline personality disorder and narcolepsy with cataplexy per history. A: Mood improving with a little more hopefulness today, but still with periods of heightened anxiety and depression and emotional lability. He consents to addition of clonidine prn for possible withdrawal symptoms in the afternoon vs anxiety as off-label use. Reviewed PDMP and as he reported prior to initiation of Quviviq trial he was consistently prescribed Ambien 10mg HS from [id number] for narcolepsy and cataplexy. Given ongoing sleep issues will increase Ambien to target sleep. Reviewed side effects including but not limited to syncope/low BP with clonidine; dangerous sleep walking behaviors/addictive potential with Ambien. Overall, I spent a total of 50 minutes on this case including meeting with the patient, reviewing the chart, nursing report, multidisciplinary team meeting, orders, and documentation. (1) MDD (major depressive disorder), recurrent episode, severe: (2) Opioid use disorder: (3) Suicidal thoughts: (4) Narcolepsy and cataplexy: (5) Borderline personality disorder: (6) JAIRO (generalized anxiety disorder): Plan 05/19/2025: -Increase Suboxone to 12mg daily this morning to target cravings/withdrawal -Increase Ambien to 10mg HS -Clonidine 0.1mg BID po prn for withdrawal symptoms 05/18/2025: The patient was admitted to the [facility] ([facility] inpatient mental health unit) on q15 min checks (behavioral with suicide precautions) for safety. The patient will participate in group, recreational, and milieu therapies and will be offered additional individual and family sessions as clinically appropriate. -Continue current medications: * sertraline 150mg daily * lamictal 100mg BID * clonidine 0.2mg HS * Ambien 5mg HS -Switch from [employer] Vyvanse to Adderall ER 20mg daily while in the hospital (don't have 10mg closer dose equivalent on formulary) -Increase trazodone to 100mg HS to target insomnia (he has upcoming appointment with sleep medicine for sleep study) -Consolidate suboxone dosing to 8mg/2mg daily from BID Inventory Assets Strengths: supportive relationships, willing to get treatment Needs: safety and stabilization, medication adjustment, additional coping skills, increased outpatient services Suicide Risk Level Suicide Risk Level: Moderate (q15 min suicide checks) (increased depression and SI in context of substance use disorder, mood improving today, denies SI, feels safe in the hospital and feels able to ask for support) Risk Factors Assessment Male: Yes : Yes Do You Have Access To A Gun?: No Health Problems: No Mental Health Diagnoses: Yes Substance Use Disorders: Yes Previous Attempt: No Family History of Suicide: No Previous Psychiatric Hospitalization: Yes Hopelessness: Yes Protective Factors Assessment Presybeterian Beliefs: Yes : Yes Responsible for Young Children: Yes Employed: Yes Stable Relationships: Yes Supportive Family: Yes Good Rapport with Provider: Yes Interval History Identifying Information ANA CASTANO is a 35-year-old man who currently lives in [place] with his and daughter (9), has a history of severe depression, borderline personality disorder, narcolepsy and cataplexy, generalized anxiety disorder, Kratum use disorder and was admitted on 05/17/25 15:36 on a 201 voluntary commitment for worsening depression with SI with plans. Chief Complaint "It's been an emotional day but I have some relief and some hope". Review of Systems Sleep Information Total Hours of Sleep: 6.5 Meal Information Percent Meal Consumed - Breakfast: 100 Percent Meal Consumed - Lunch: 50 Percent Meal Consumed - Dinner: 0 Subjective Subjective Patient was seen & assessed and interval progress reviewed with treatment team. He did not experience any cravings for suboxone today after the dose was increased. He had some sweatiness and anxiety-type feeling this afternoon, he found Vistaril helpful for this yesterday but not as effective today. Slept well with trazodone once asleep but took some time to fall asleep. Reviews that he used to be on Ambien 10mg HS prior to recent trial of a newer sleep medication and then sleep medicine restarted Ambien at lower dose. He'd like to try higher dose again. Tolerating Adderall ER since Valerie is not on formulary, has been able to focus during groups and complete worksheets. He denies any thoughts of suicide today. Notes that he's had an "emotional day" processing recent events and trying to set realistic expectations for himself after discharge. Physical Exam Psychiatric Orientation: alert and oriented x 3 Apperance: appropriately dressed and appropriately groomed Eye Contact: good eye contact Motor Behavior: no abnormal motor movements Speech: normal rate/rhythm/volume of speech Affect: + depressed affect and + anxious affect Mood: + depressed mood and + anxious mood Thought Process: goal directed thought process Thought Content: + cognitive distortions, reality based without delusions and + guilt Suicidal Thoughts: denies suicidal plan and denies suicidal intent; + reports suicidal thoughts (lessening today) Homicidal Thoughts: denies homicidal thoughts Hallucinations: no auditory hallucinations and no visual hallucinations Cognition: recent memory grossly intact, remote memory grossly intact, attention grossly intact and language grossly intact Estimated Intelligence: consistent with education level Insight: + fair insight Judgment: + fair judgement Vital Signs (Past 24 Hours) Last Vital Signs Temp 36.6 C 05/19/25 06:23 Pulse 79 05/19/25 06:24 Resp 16 05/19/25 06:23 BP 100/64 05/19/25 06:24 Pulse Ox 98 05/17/25 16:07 O2 Del Method Room Air 05/17/25 16:07 Results & Data ([facility]) Current Inpatient Medications Current Inpatient Medications: Current Inpatient Medications Acetaminophen (Acetaminophen 325 Mg Tab) 650 mg PO Q4H PRN PRN Reason: Headache or Minor Fever Stop: 06/16/25 13:40 Al Hydrox/Mg Hydrox/Simethicone (Aluminum/Magnesium Susp 30 Ml Udc) 30 ml PO Q4H PRN PRN Reason: GI Upset Stop: 06/16/25 13:40 Amphetamine/Dextroamphetamine (Dextroamphetamine/Amphetamine Er 20 Mg Cap) 20 mg PO DAILY [facility] Stop: 06/01/25 10:59 Last Admin: 05/18/25 11:16 Dose: 20 mg Bismuth Subsalicylate (Bismuth Subsalicylate 262 Mg Chew) 2 tab PO Q30M PRN PRN Reason: Loose Stool/Diarrhea Stop: 06/16/25 13:40 Buprenorphine/Naloxone (Buprenorphine/Naloxone 8/2 Mg Tab) 1 tab SL DAILY [facility] Stop: 06/18/25 08:59 Buprenorphine/Naloxone (Buprenorphine/Naloxone 2/0.5mg Tab) 2 tab SL DAILY [facility] Stop: 06/18/25 08:59 Clonidine HCl (Clonidine Hcl 0.1 Mg Tab) 0.2 mg PO HS [facility] Stop: 06/16/25 21:59 Last Admin: 05/18/25 21:01 Dose: 0.2 mg Docusate Sodium (Docusate Sodium 100 Mg Cap) 100 mg PO BID [facility] Stop: 06/17/25 09:29 Last Admin: 05/18/25 21:02 Dose: 100 mg Hydroxyzine HCl (Hydroxyzine Hcl 25 Mg Tab) 50 mg PO HSZ PRN PRN Reason: Insomnia Stop: 06/16/25 13:40 Hydroxyzine HCl (Hydroxyzine Hcl 25 Mg Tab) 25 mg PO Q4H PRN PRN Reason: Anxiety Stop: 06/16/25 13:40 Last Admin: 05/18/25 19:36 Dose: 25 mg Lamotrigine (Lamotrigine 100 Mg Tab) 100 mg PO BID [facility]; Protocol Stop: 06/16/25 20:59 Last Admin: 05/18/25 21:01 Dose: 100 mg Magnesium Hydroxide (Magnesium Hydroxide Susp 30 Ml Udc) 30 ml PO DAILY PRN PRN Reason: Constipation Stop: 06/16/25 13:40 Last Admin: 05/18/25 17:48 Dose: 30 ml Miscellaneous (Remove Nicoderm Patch) 1 each N/A DAILY@0859 [facility] Stop: 06/17/25 08:58 Last Admin: 05/18/25 22:37 Dose: 1 each Nicotine (Nicotine 14 Mg/24 Hr Patch) 1 patch TD QAM [facility] Stop: 06/17/25 08:59 Last Admin: 05/18/25 09:37 Dose: 1 patch Nicotine Polacrilex (Nicotine Polacrilex 2 Mg Gum) 1 - 2 piece MT Q2H PRN PRN Reason: Nicotine Withdrawal Symptoms Stop: 06/16/25 13:40 Last Admin: 05/18/25 21:40 Dose: 2 piece Ondansetron HCl (Ondansetron 8mg Od Tab) 8 mg PO Q6H PRN PRN Reason: nausea and vomiting Stop: 06/16/25 15:43 Last Admin: 05/18/25 12:36 Dose: 8 mg Polyethylene Glycol (Polyethylene (Miralax) 17 Gm Pack) 17 gm PO DAILY [facility] Stop: 06/17/25 09:29 Last Admin: 05/18/25 11:16 Dose: 17 gm Sertraline HCl (Sertraline Hcl 50 Mg Tablet) 150 mg PO DAILY [facility] Stop: 06/17/25 08:59 Last Admin: 05/18/25 09:14 Dose: 150 mg Sodium Chloride (Sodium Chloride 0.65% Na Soln 45 Ml ([place])) 1 - 2 sprays NA PRN PRN PRN Reason: Nasal Dryness/Congestion Stop: 06/16/25 13:40 Trazodone HCl (Trazodone Hcl 100 Mg Tab) 100 mg PO HS [facility] Stop: 06/17/25 21:59 Last Admin: 05/18/25 21:02 Dose: 100 mg Zolpidem Tartrate (Zolpidem Tartrate 5 Mg Tab) 5 mg PO HS [facility] Stop: 06/16/25 21:59 Last Admin: 05/18/25 21:02 Dose: 5 mg Mental Health & Subst Abuse Tx Therapist Name of Therapist: Natali Davis Therapist's Date of Therapist Appointment: 05/24/2025 Post Discharge Appointments Primary Care Physician Name Of Family Doctor/PCP: Dr. Nunes [facility] Date of Future Appointment with PCP: 05/26 Time of Appointment with PCP: 9:20a Provider Appointment Comment: Will be seeing VEL Young
[2025-05-19] MEDS: ZOLPIDEM TARTRATE 5 MG TAB PO SCH (21:21)
[2025-05-20 06:33] VITALS: RESP 18; O2SAT 99
--- NOTE | 2025-05-20 09:10 | Psychiatric Progress Note ---
Date of Service May 20, 2025 Impression / Recommendations Impression ANA CASTANO is a 35-year-old man who currently lives in [place] with his and daughter (9), has a history of severe depression, borderline personality disorder, narcolepsy and cataplexy, generalized anxiety disorder, Kratum use disorder and was admitted on 05/17/25 15:36 on a 201 voluntary commitment for worsening depression with SI with plans. Diagnostically consistent with major depressive disorder as well as likely substance-induced depression as well as Kratum/opioid use disorder and borderline personality disorder and narcolepsy with cataplexy per history. A: Mood improving though still with sleep difficulty and periods of anxiety. Having constipation, likely from suboxone. He;d like to continue with colace/senna and miralax and if this is not beneficial then he consents to trial of lactulose for off-label use for constipation. He'd like to try melatonin to help with sleep onset insomnia. Prefers not to make any other psychiatric medication changes. Overall, I spent a total of 40 minutes on this case including meeting with the patient, reviewing the chart, nursing report, multidisciplinary team meeting, orders, and documentation. (1) MDD (major depressive disorder), recurrent episode, severe: (2) Opioid use disorder: (3) Suicidal thoughts: (4) Narcolepsy and cataplexy: (5) Borderline personality disorder: (6) JAIRO (generalized anxiety disorder): Plan 05/20/2025: -Colace/senna 1 tab BID -Lactulose prn x1 for constipation if needed -Start melatonin 5mg QPM 05/19/2025: -Increase Suboxone to 12mg daily this morning to target cravings/withdrawal -Increase Ambien to 10mg HS -Clonidine 0.1mg BID po prn for withdrawal symptoms 05/18/2025: The patient was admitted to the [facility] ([facility] mental health unit) on q15 min checks (behavioral with suicide precautions) for safety. The patient will participate in group, recreational, and milieu therapies and will be offered additional individual and family sessions as clinically appropriate. 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 to Adderall ER 20mg daily while in the hospital (don't have 10mg closer dose equivalent on formulary) -Increase trazodone to 100mg HS to target insomnia (he has upcoming appointment with sleep medicine for sleep study) -Consolidate suboxone dosing to 8mg/2mg daily from BID Inventory Assets Strengths: supportive relationships, willing to get treatment Needs: safety and stabilization, medication adjustment, additional coping skills, increased outpatient services Suicide Risk Level Suicide Risk Level: Moderate (q15 min suicide checks) (increased depression and SI in context of substance use disorder, mood improving today, denies SI, feels safe in the hospital and feels able to ask for support) Risk Factors Assessment Male: Yes : Yes Do You Have Access To A Gun?: No Health Problems: No Mental Health Diagnoses: Yes Substance Use Disorders: Yes Previous Attempt: No Family History of Suicide: No Previous Psychiatric Hospitalization: Yes Hopelessness: Yes Protective Factors Assessment Worship Beliefs: Yes : Yes Responsible for Young Children: Yes Employed: Yes Stable Relationships: Yes Supportive Family: Yes Good Rapport with Provider: Yes Interval History Identifying Information ANA CASTANO is a 35-year-old man who currently lives in [place] with his and daughter (9), has a history of severe depression, borderline personality disorder, narcolepsy and cataplexy, generalized anxiety disorder, Kratum use disorder and was admitted on 05/17/25 15:36 on a 201 voluntary commitment for worsening depression with SI with plans. Chief Complaint "Having this space to calm down and step away from everything has been so helpful". Review of Systems Sleep Information Total Hours of Sleep: 6 Meal Information Percent Meal Consumed - Breakfast: 75 Percent Meal Consumed - Lunch: 75 Percent Meal Consumed - Dinner: 100 Subjective Subjective Patient was seen & assessed and interval progress reviewed with nursing and social work. Attending all the groups. Found prn Vistaril effective yesterday afternoon. No further withdrawal symptoms by evening. Rated his mood as 8/10 in the evening. Slept poorly last night with sleep onset insomnia despite increased dose of Ambien. Disruptive peer on the unit also lead to further difficulty sleeping into the morning. Due to this he feels today is a "rougher" day but still without SI and feels hopeful. Wonders about potential cravings contributing to anxiety in the afternoon vs anxiety response. He's finding Vistaril beneficial. Having constipation-reviewed options to try. Denies any other medication side effects. Expresses gratitude for how much this hospitalization is helping him. Physical Exam Psychiatric Orientation: alert and oriented x 3 Apperance: appropriately dressed and appropriately groomed Eye Contact: good eye contact Motor Behavior: no abnormal motor movements Speech: normal rate/rhythm/volume of speech Affect: + anxious affect Mood: + anxious mood Thought Process: goal directed thought process Thought Content: reality based without delusions Suicidal Thoughts: denies suicidal thoughts, denies suicidal plan and denies suicidal intent Homicidal Thoughts: denies homicidal thoughts Hallucinations: no auditory hallucinations and no visual hallucinations Cognition: recent memory grossly intact, remote memory grossly intact, attention grossly intact and language grossly intact Estimated Intelligence: consistent with education level Insight: + fair insight Judgment: + fair judgement Vital Signs (Past 24 Hours) Last Vital Signs Temp 36.6 C 05/20/25 06:32 Pulse 60 05/20/25 06:32 Resp 18 05/20/25 06:32 BP 121/81 05/20/25 06:32 Pulse Ox 99 05/20/25 06:32 O2 Del Method Room Air 05/20/25 06:32 Results & Data ([facility]) Current Inpatient Medications Current Inpatient Medications: Current Inpatient Medications Acetaminophen (Acetaminophen 325 Mg Tab) 650 mg PO Q4H PRN PRN Reason: Headache or Minor Fever Stop: 06/16/25 13:40 Al Hydrox/Mg Hydrox/Simethicone (Aluminum/Magnesium Susp 30 Ml Udc) 30 ml PO Q4H PRN PRN Reason: GI Upset Stop: 06/16/25 13:40 Amphetamine/Dextroamphetamine (Dextroamphetamine/Amphetamine Er 20 Mg Cap) 20 mg PO DAILY [facility] Stop: 06/01/25 10:59 Last Admin: 05/20/25 08:01 Dose: 20 mg Bismuth Subsalicylate (Bismuth Subsalicylate 262 Mg Chew) 2 tab PO Q30M PRN PRN Reason: Loose Stool/Diarrhea Stop: 06/16/25 13:40 Buprenorphine/Naloxone (Buprenorphine/Naloxone 8/2 Mg Tab) 1 tab SL DAILY [facility] Stop: 06/18/25 08:59 Last Admin: 05/20/25 08:01 Dose: 1 tab Buprenorphine/Naloxone (Buprenorphine/Naloxone 2/0.5mg Tab) 2 tab SL DAILY [facility] Stop: 06/18/25 08:59 Last Admin: 05/20/25 08:01 Dose: 2 tab Clonidine HCl (Clonidine Hcl 0.1 Mg Tab) 0.2 mg PO HS [facility] Stop: 06/16/25 21:59 Last Admin: 05/19/25 21:22 Dose: 0.2 mg Clonidine HCl (Clonidine Hcl 0.1 Mg Tab) 0.1 mg PO BID PRN PRN Reason: withdrawal Stop: 06/18/25 15:51 Docusate Sodium (Docusate Sodium 100 Mg Cap) 100 mg PO BID [facility] Stop: 06/17/25 09:29 Last Admin: 05/20/25 07:54 Dose: 100 mg Hydroxyzine HCl (Hydroxyzine Hcl 25 Mg Tab) 50 mg PO HSZ PRN PRN Reason: Insomnia Stop: 06/16/25 13:40 Hydroxyzine HCl (Hydroxyzine Hcl 25 Mg Tab) 25 mg PO Q4H PRN PRN Reason: Anxiety Stop: 06/16/25 13:40 Last Admin: 05/19/25 18:41 Dose: 25 mg Lamotrigine (Lamotrigine 100 Mg Tab) 100 mg PO BID [facility]; Protocol Stop: 06/16/25 20:59 Last Admin: 05/20/25 07:54 Dose: 100 mg Magnesium Hydroxide (Magnesium Hydroxide Susp 30 Ml Udc) 30 ml PO DAILY PRN PRN Reason: Constipation Stop: 06/16/25 13:40 Last Admin: 05/19/25 21:57 Dose: 30 ml Miscellaneous (Remove Nicoderm Patch) 1 each N/A DAILY@0859 [facility] Stop: 06/17/25 08:58 Last Admin: 05/19/25 22:35 Dose: 1 each Nicotine (Nicotine 14 Mg/24 Hr Patch) 1 patch TD QAM [facility] Stop: 06/17/25 08:59 Last Admin: 05/20/25 07:56 Dose: 1 patch Nicotine Polacrilex (Nicotine Polacrilex 2 Mg Gum) 1 - 2 piece MT Q2H PRN PRN Reason: Nicotine Withdrawal Symptoms Stop: 06/16/25 13:40 Last Admin: 05/19/25 21:57 Dose: 1 piece Ondansetron HCl (Ondansetron 8mg Od Tab) 8 mg PO Q6H PRN PRN Reason: nausea and vomiting Stop: 06/16/25 15:43 Last Admin: 05/18/25 12:36 Dose: 8 mg Polyethylene Glycol (Polyethylene (Miralax) 17 Gm Pack) 17 gm PO DAILY [facility] Stop: 06/17/25 09:29 Last Admin: 05/20/25 07:55 Dose: 17 gm Sertraline HCl (Sertraline Hcl 50 Mg Tablet) 150 mg PO DAILY [facility] Stop: 06/17/25 08:59 Last Admin: 05/20/25 07:54 Dose: 150 mg Sodium Chloride (Sodium Chloride 0.65% Na Soln 45 Ml ([place])) 1 - 2 sprays NA PRN PRN PRN Reason: Nasal Dryness/Congestion Stop: 06/16/25 13:40 Trazodone HCl (Trazodone Hcl 100 Mg Tab) 100 mg PO HS [facility] Stop: 06/17/25 21:59 Last Admin: 05/19/25 21:22 Dose: 100 mg Zolpidem Tartrate (Zolpidem Tartrate 5 Mg Tab) 10 mg PO HS [facility] Stop: 06/18/25 21:59 Last Admin: 05/19/25 21:21 Dose: 10 mg Mental Health & Subst Abuse Tx Psychiatrist Name of Psychiatrist: [facility] Psychiatrist's Date Of Appointment With Psychiatric Provider: 05/27 Time of Appointment with Psychiatrist: 11a Psychiatric Appointment Comment: 45min phone appt with nurse Therapist Name of Therapist: Natali Davis Therapist's Date of Therapist Appointment: 05/24/2025 Time of Therapist Appointment: 12pm Post Discharge Appointments Primary Care Physician Name Of Family Doctor/PCP: Dr. Nunes, [facility] Date of Future Appointment with PCP: 05/26 Time of Appointment with PCP: 9:20a Provider Appointment Comment: Will be seeing VEL Young Contact Information Discharge Discharge Address: [address] [place] [address] [place] [address]
[2025-05-20] MEDS: DOCUSATE SODIUM/SENNA 50/8.6MG TAB PO SCH (10:13)
[2025-05-20] MEDS: LACTULOSE SYRUP 20 GM/30 ML UDC PO PRN (18:22)
[2025-05-20] MEDS: MELATONIN 3 MG TAB PO SCH (19:08)
[2025-05-21 06:34] VITALS: TEMP 98.6
--- NOTE | 2025-05-21 09:14 | Discharge Summary ---
Date of Service May 21, 2025 History of Present Illness Prashanth presents for psychiatric admission after medical admission for Kratum withdrawal. He presents following increased kratom use that developed over the past several months as well as worsening depression and suicidal ideation with plans of hanging himself or walking into traffic. He reports that his current psychiatric episode began last fall when his bosses, who are also his pastors and friends, moved and he discovered they have been speaking negatively about him which he describes as a significant betrayal that "really shook" him. He states this fed into his fear that he is "broken" and "real messed up". Following this incident Anamika began using regular kratom powder and capsules which he used steadily for approximately 9 months without it consuming him. However in early summer of this year a coworker introduced him to a new formulation of kratom that he describes as allowing him to "breathe again" and making him feel "I was so wrong until that moment and I just couldn't let go of it". He reports using this new form daily for about a week before recognizing it was expensive and attempting to stop, but experienced suicidal ideation after 2 days of cessation prompting him to resume use. Prashanth describes engaging in "the sketchiest stuff" including stealing lying and manipulating to obtain money for kratom stating it became "all I cared about because it was the only thing that allowed me or made me want to care about anything else". He reports that his "whole identity and happiness" became dependent on the substance. He acknowledges having insight and self-awareness about his condition but lacking "the motivation to pursue the tools" he knows work for him. He reports feeling disconnected from his usual caring, charismatic personality with a sense of humor and heart for people stating he has not seen this version of himself in 2 months. Prashanth expresses fear about his thoughts describing a "fatalistic mentality" where "it is all going to fall apart anyway" and feeling that "there is nothing motivating me or pushing me nothing that I find value in". From this emerged increasingly intense thoughts of suicide which especially frightened him because his and daughter whom he loves dearly did not seem to be significant deterrents anymore. He felt like his whole identify and happiness started to hinge on this substance. About two months ago he reflects on knowing he was addicted to it but he also had intense shame. Since starting suboxone on the medical floor he is feeling a little better physically and mentally but describes having this part of him that still craves it and wants to use even though he wants to engage in treatment and get better. He reports that his anxiety stems from life becoming "so carried away and overwhelming" to the point where he feels ineffective everywhere he goes, magda ntly worried about being lectured or what he missed or messed up. He reports this anxiety related to feeling overwhelmed by life responsibilities and struggles with avoidance behaviors though he wants to work again on more mindfulness techniques to stay present. He describes his biggest fear is not getting better. He acknowledges that his relationships suffer when he is using substances because people feel he is no longer being sincere or transparent which he attributes to his avoidance behaviors and tendency towards lies of omission or commission. He can however recognize that seeking treatment voluntarily was evidence of having some insight into how bad things had gotten and he recognizes this is the first time he has sought help while still having "things to lose" including his , home, daughter and job. Prashanth describes waking up in the morning as "a traumatic event" and that it is nearly impossible for him to get out of bed and he will "throw if it like crying" which his therapist has identified as a trauma response due to the experience of the severe depression and anxiety awaiting his day. He describes his depression as "I know what works but I got so stuck that I just could not" and finding that his mood has spiraled as his kratom use increase. Currently endorses depressive symptoms including tearfulness, anhedonia, changes in sleep, changes in appetite, lack of motivation, guilt, shame, decreased concentration, hopelessness, helplessness and suicidal ideation with plans. He is currently prescribed Ambien and Vyvanse (both for narcolepsy), Lamictal, Zoloft, clonidine, and trazodone started on the medical floor. Psychiatric ROS notable for possible hx of hypomania vs symptoms 2/2 substance use and borderline personality disorder. No current nor history of symptoms of florence, psychosis, OCD nor eating disorder. PHQ-9 score of 24 with 2 for Q9, JAIRO-7 score of 20, positive Richard BPD screen. Physical Exam Vital Signs (Past 24 Hours) Last Vital Signs Temp 37.0 C 05/21/25 06:33 Pulse 69 05/21/25 06:33 Resp 18 05/21/25 06:33 BP 128/89 05/21/25 06:33 Pulse Ox 99 05/21/25 06:33 O2 Del Method Room Air 05/21/25 06:33 Principal Diagnosis Unspecified Depressive Disorder Psychiatric Data See daily stay summary. In short, patient was engaged with the social/therapeutic milieu of the unit, safety was maintained and the patient was cooperative with care. Medication changes included ongoing use of Suboxone 12mg daily for opioid use disorder/Kratum use disorder, increase of Ambien to 10mg HS & increase of trazodone to 100mg HS & melatonin 6mg HS for insomnia, Vistaril 25mg BID prn for anxiety/insomnia, and continuation of sertraline, lamictal, and clonidine and they tolerated this well. A support session was held and safety p ashok was completed prior to discharge. They participated in safety planning and in discussions about ways to seek support and recognizing warning signs and utilizing coping skills. Reviewed ways to have their safety plan and contacts easily available should thoughts of SI re-emerge in the future. Reviewed importance of seeking emergency care should SI intensify, worsen or should they feel unsafe in the future which they agree to do. On the day of discharge they stated their mood was "hopeful and eager" and "I slept much better" and remained future-oriented including spending time with his family, being outside, going to scientologist, relaxing and engaging in aftercare appointments for psychiatry, therapy and [facility] clinic. Day of Discharge Assessment Today the patient voices readiness for discharge. They note improvement in mood, and anxiety. They deny thoughts of harm to self or others. Thoughts are organized and they are clinically improved from admission. There is no evidence of psychosis. They improved in the hospital with support and medication adjustments. They agree to take medications as prescribed and keep follow-up appointments. At the time of the discharge they are deemed to be stable and appropriate for outpatient level of care. They are not deemed to be at imminent risk of harm to self or others. They are aware of emergency and crisis services. Knows to call 911 or go to nearest emergency care center if in a crisis which cannot be handled as an outpatient. Suicide risk assessment: Acute risk is low given improvement in mood and denial of SI, lack of access to lethal means, plan to avoid substance use, improvement in sleep, hopefulness. Chronic risk is moderate given some non-modifiable risk factors: psychiatric co- morbid diagnoses, periods of impulsivity, prior psychiatric hospitalization, cluster B personality disorder, but also with protective factors including employed, good social support, sense of responsibility to family and social supports, outpatient care in place, positive coping skills, positive problem solving, willingness to engage with treatment and self-observation. Counseled on ways to reduce acute and chronic risk including engaging with outpatient providers, using safety plan if needed, utilizing supports, taking medication, and using coping skills. Modifiable risk factors of SI and depression were addressed during hospitalization through development of new coping skills, support meeting, safety planning, and medication adjustments. Discharge physical exam: See admission H&P, MSE per above and day of discharge summary. Overall, I spent a total of 45 minutes on this case including meeting with the patient, reviewing the chart, nursing report, multidisciplinary team meeting, discharge orders, anticipatory planning, safety planning, risk assessment and documentation. Transition of Care Transition Of Care Record: was reviewed with the patient Advance Directives Advance Directives Information Provided: Yes Advance Directives: No Mental Health Advance Directive: No Advance Directives on File: No Living Will: No Power of Colored Leather Setter: No Advance Directives Reason:: Declines as Mental Health Visit. Suicide Risk Level Suicide Risk Level Comments: see assessment above Risk Factors Assessment Male: Yes : Yes Do You Have Access To A Gun?: No Health Problems: No Mental Health Diagnoses: Yes Substance Use Disorders: Yes Previous Attempt: No Family History of Suicide: No Previous Psychiatric Hospitalization: Yes Hopelessness: No Protective Factors Assessment Mormon Beliefs: Yes : Yes Responsible for Young Children: Yes Employed: Yes Stable Relationships: Yes Supportive Family: Yes Good Rapport with Provider: Yes Tobacco Cessation at Discharge Tobacco Cessation Medication Prescribed at Discharge: Offered & Pt Refused (declined) Opioid Risk Protocol Declines naloxone kit currently. Can discuss further with Tricia Sr. Hospital Course (1) MDD (major depressive disorder), recurrent episode, severe: (2) Opioid use disorder: (3) JAIRO (generalized anxiety disorder): (4) Narcolepsy and cataplexy: (5) Borderline personality disorder: Plan 05/21/2025: -Slept well overnight and had a bowel movement -Feels safe and ready for discharge 05/20/2025: -Colace/senna 1 tab BID -Lactulose prn x1 for constipation if needed -Start melatonin 5mg QPM 05/19/2025: -Increase Suboxone to 12mg daily this morning to target cravings/withdrawal -Increase Ambien to 10mg HS -Clonidine 0.1mg BID po prn for withdrawal symptoms 05/18/2025: The patient was admitted to the [facility] ([facility] health unit) on q15 min checks (behavioral with suicide precautions) for safety. The patient will participate in group, recreational, and milieu therapies and will be offered additional individual and family sessions as clinically appropriate. -Continue current medications: * sertraline 150mg daily * lamictal 100mg BID * clonidine 0.2mg HS * Ambien 5mg HS -Switch from [employer] Vyvanse to Adderall ER 20mg daily while in the hospital (don't have 10mg closer dose equivalent on formulary) -Increase trazodone to 100mg HS to target insomnia (he has upcoming appointment with sleep medicine for sleep study) -Consolidate suboxone dosing to 8mg/2mg daily from BID Mental Health & Subst Abuse Tx Psychiatrist Name of Psychiatrist: [facility] Psychiatrist's Date Of Appointment With Psychiatric Provider: 05/27 Time of Appointment with Psychiatrist: 11a Psychiatric Appointment Comment: 45min phone appt with nurse Therapist Name of Therapist: Natali Davis Therapist's Date of Therapist Appointment: 05/24/2025 Time of Therapist Appointment: 12pm Post Discharge Appointments Primary Care Physician Name Of Family Doctor/PCP: Dr. Nunes, [facility] Date of Future Appointment with PCP: 05/26 Time of Appointment with PCP: 9:20a Provider Appointment Comment: Will be seeing [facility]ess[facility] Tobacco Cessation Medication Prescribed at Discharge: Offered & Pt Refused (declined) Other #1: Name of Aftercare Appointment: [facility] [place] [address] [address], [place] Phone Number of Aftercare Appointment: Date of Aftercare Appointment: 05/25/25 Time of Aftercare Appointment: 1pm Aftercare Appointment Comment: medical staff will complete evalution. Bring insurance and ID card #2: Name of Aftercare Appointment: [facility] Time of Aftercare Appointment: Aftercare Appointment Comment: Patient to self schedule Contact Information Discharge Discharge Address: [address] [place] [address] [place] [address] Discharge Plan Discharge Items Patient Disposition: Home - Self-Care Reason For Visit: MAJOR DEPRESSIVE DISORDER Discharge Diagnosis: Unspecified Depressive Disorder Activity: Resume your previous activity Non-emergency contact: Primary Care Provider, Psychiatrist and Therapist Call non-emergency contact if: you have any medication questions and your symptoms worsen Follow-up/Referrals: Boyd Nunes DO [Primary Care Provider] - Diet: Regular Addtl Attending Provider Instructions: Optional Mobile apps we discussed: -Suicide safety plan -Virtual Hope Box SPECIAL CARE INSTRUCTIONS: 1. Follow through with your scheduled aftercare appointments. If unable to keep an appointment, please call to reschedule. 2. Take your medication only as prescribed. Medication should not be changed or stopped without the approval of your doctor. In the event of worsening symptoms or concerns about side effects, contact your doctor immediately. 3. Utilize new healthy coping skills, anger management skills, and stress management skills learned during your hospitalization. Journal feelings and process them with a support person. Identify stressors or situations that may result in relapse, deterioration or inappropriate behaviors and develop a plan to deal with those issues. 4. If your coping skills are ineffective and you are in crisis, contact your outpatient providers for direction. If unable to reach your providers, please call the [facility] CRISIS LINE AT , go to the [facility] walk-in center at [address], [address], [place], or go to the closest Emergency Room. 5. Avoid alcohol and un-prescribed drugs. 6. You have been provided with the Mental Health Advance Directives Pamphlet for your review. 7. Your condition is stable for discharge to outpatient level of care, but recovery is an ongoing process. Ifthoughts to harm yourself or others return, follow the safety plan developed during your stay. Planning for a safe return home includes securing weapons. Our treatment team recommends weaponsbe removed from the home until your outpatient provider reassesses your progress. In rare cases where the items themselvescannot be removed, guns and ammunitionshould be secured separatelyand keys stored by a reliable personoutside of the home. If you were admitted on an involuntary commitment, the police or other legal authorities may be involved in this process. AFTERCARE APPOINTMENTS: * Please call your insurance company prior to your scheduled appointment to confirm your aftercare providers are covered. Take your insurance information to your appointments. WHO TO CALL AND WHEN: Medical Emergencies: For questions or emergencies related to your hospital stay, please contact the Inpatient Behavioral Health Unit at [phone]. A health clinician is on-call 11/03 for the Behavioral Health Unit for emergencies At any time you feel your situation is an emergency, you may also call 911 immediately. National Crisis Hotline: 988 Pending Studies at Discharge: No Stand-Alone Forms: [facility] [employer], Smoking Cessation Medications and DC Order Prescriptions: New hydroxyzine HCl 25 mg Tablet 25 mg PO BID PRN (Reason: anxiety/insomnia) 30 Days Qty: 60 0RF buprenorphine-naloxone 2-0.5 mg Tablet, Sublingual 2 tab sublingual DAILY 4 Days Qty: 8 0RF Rx Instructions: total daily dose of 12mg buprenorphine (2x2mg tab + 8mg tab) buprenorphine-naloxone 8-2 mg Tablet, Sublingual 1 tab sublingual DAILY 4 Days Qty: 4 0RF lamotrigine 100 mg Tablet 100 mg PO BID 30 Days Qty: 60 0RF trazodone 100 mg Tablet 100 mg PO HS 30 Days Qty: 30 0RF zolpidem 10 mg tablet 10 mg PO HS 30 Days Qty: 30 0RF polyethylene glycol 3350 [Miralax] 17 gram Powder In Packet 17 g PO DAILY 30 Days Qty: 30 0RF melatonin 3 mg tablet 6 mg PO HS 30 Days Qty: 60 0RF Rx Instructions: Take 2 hours before going to bed docusate sodium [Dulcolax Stool Softener (dss)] 100 mg capsule 100 mg PO BID 30 Days Qty: 60 0RF Continued sertraline [Zoloft] 100 mg Tablet 150 mg PO DAILY lisdexamfetamine [Vyvanse] 30 mg Capsule 30 mg PO DAILY clonidine HCl 0.1 mg Tablet 0.2 mg PO HS Qty: 14 0RF Discontinued lamotrigine [Lamictal] 100 mg tablet 100 mg PO BID trazodone 50 mg Tablet 50 mg PO HS Qty: 30 0RF ondansetron 8 mg Tablet,Disintegrating 8 mg PO Q6H PRN (Reason: nausea and vomiting) Qty: 30 0RF buprenorphine-naloxone 2-0.5 mg Tablet, Sublingual 2 tab sublingual BID 14 Days Qty: 56 0RF clonidine HCl 0.2 mg Tablet 0.2 mg PO Q6H PRN (Reason: Withdrawal Symptoms) zolpidem 5 mg tablet 5 mg PO HS Discharge Orders: Discharge Order (Routine); Ordered 05/21/25 Ordered By: Nataly Jacobo Admission Data Admit Date/Time: 05/17/25 15:36 Attending Provider: Nataly Jacobo Admit Provider: Nataly Jacobo Primary Care Provider: Boyd Nunes Other Interventions: Discharge Summary Assessment (RN) Last Done: 05/21/25 11:08 Coding Level of Care Code 12666 D/C day mgmt > 30 min Diagnoses MDD (major depressive disorder), recurrent episode, severe F33.2 Opioid use disorder F11.90 JAIRO (generalized anxiety disorder) F41.1 Narcolepsy and cataplexy G47.411 Borderline personality disorder F60.3
[2025-05-21 11:16] VITALS: BP 100/64; PULSE 60
== END 2025-05-21 12:38 | disposition home or self-care (01) | DRG 885 ==
LOC: 3S 15:37